=== PATIENT | male | born 1955 | race Caucasian/White ===

== ENCOUNTER 2023-07-30 08:51 | Outpatient (REF) | payer MEDICARE, MEDICAID, SELFPAY ==
[2023-07-30 14:20] LABS: MANUAL DIFF FLAG NO
[2023-07-30 14:32] LABS: Basophils Absolute Auto 0.1 X10*3/uL (0.0-0.2); Basophils Percent Auto 0.4 % (0-2); Eosinophils Absolute Auto 0.6 X10*3/uL (0.0-0.4); Eosinophils Percent Auto 5.1 % (0-4); Hematocrit 47.5 % (42.0-52.0); Hemoglobin 15.3 g/dl (14.0-18.0); Imm Gran Abs Auto 0.03 X10*3/uL (0.00-0.03); Imm Gran Pct Auto 0.3 % (0.0-0.4); Lymphocytes Percent Auto 25.3 % (20-40); Mean Corpuscular HGB Conc 32.2 g/dl (31.0-36.0); Mean Corpuscular Hemoglobin 29.3 pg (27.0-33.0); Mean Corpuscular Volume 90.8 fL (80.0-98.0); Mean Platelet Volume 11.5 fL (9.4-12.4); Monocytes Absolute Auto 0.9 X10*3/uL (0.1-1.2); Monocytes Percent Auto 7.6 % (2-11); Neutrophils Absolute Auto 7.2 x10*3/uL (2.0-8.3); Neutrophils Percent Auto 61.3 % (45-73); Platelet Count 294 X10*3/uL (160-400); Red Blood Count 5.23 X10*6/uL (4.60-5.80); Red Cell Distribution Width 12.5 % (11.0-16.0); White Blood Count 11.7 X10*3/uL (4.8-10.8)
[2023-07-30 14:36] LABS: Appearance Urine Clear; Color Urine Yellow; Glucose Urine UA Negative (Negative); Leukocyte Esterase Urine Negative (Negative); Nitrite Urine Negative (Negative); Urine Blood Negative (Negative); Urine Ketones Negative (Negative); Urine Protein Negative (Neg-Trace)
[2023-07-30 14:39] LABS: Bacteria Urine None Seen (None Seen); Hyaline Casts Urine 0-2 /LPF (0-2); RBC Urine 0-2 /HPF (0-2); Squamous Epithelial Cell Urine 0-2 /HPF (0-2); WBC Urine 0-5 /HPF (0-5)
[2023-07-30 15:24] LABS: Alanine Aminotransferase 14 U/L (0-40); Albumin Level 3.9 g/dL (3.5-5.0); Alkaline Phosphatase 81 U/L (39-117); Anion Gap 13 (12-20); Aspartate Amino Transferase 20 U/L (5-37); Bilirubin Direct 0.2 mg/dL (0.0-0.5); Bilirubin Total 0.7 mg/dL (0.0-1.0); Blood Urea Nitrogen 15 mg/dL (9-16); Calcium 9.6 mg/dL (8.4-10.2); Carbon Dioxide 28 mmol/L (22-29); Chloride 103 mmol/L (96-108); Estimated Glomerular Filt Rate > 60; Glucose Random 99 mg/dL (60-115); Potassium 4.2 mmol/L (3.3-5.1); Sodium 140 mmol/L (135-145); TSH reflex Free T4 3.14 uIU/mL (0.32-4.0)
== END 2023-07-30 08:52 | disposition home or self-care (01) ==
LOC: HO.CHCLDS 08:51
PROVIDERS: Visit Provider Pediatrics
DX: E11.9 Type 2 diabetes mellitus without complications (principal)
CPT/HCPCS: 36415; 80048; 80076; 81001; 82550; 84443; 85025

== ENCOUNTER 2024-03-28 09:14 | Outpatient (REF) | payer MEDICARE, MEDICAID, SELFPAY ==
[2024-03-28 15:00] LABS: Cholesterol 133 mg/dL (<200); HDL Cholesterol 56 mg/dL (>40); LDL Cholesterol Calculated 61 mg/dL (<100); Triglycerides 84 mg/dL (<150)
== END 2024-03-28 09:15 | disposition home or self-care (01) ==
LOC: HO.CHCLDS 09:14
PROVIDERS: Visit Provider Pediatrics
DX: E11.9 Type 2 diabetes mellitus without complications (principal)
CPT/HCPCS: 36415; 80061

== ENCOUNTER 2024-09-28 10:12 | Outpatient (REF) | payer MEDICARE, MEDICAID, SELFPAY ==
--- OUTSIDE RECORDS SUMMARY | 2024-09-28 12:10 | XMS_ITS | Encounter Summary ---
Author Organization [employer] Address [address] [place] [address] [address] [place] [address] Care Team Providers Care Angledozer Operator Name Role Phone Sigrid Avilez MD Primary Care Provider [phone] Encounter Details Date Type Department Care Team (Late st Contact Info) Description 01/13/2023 Orders Only [facility] [address] [place], [place] [id number] Esha Gilman LPN Social History Tobacco Use Types Packs/Day Years Used Date Smoking Tobacco: Never Smokeless Tobacco: Never Depression Answer Date Recorded Patient Health Questionnaire-9 Score 0 10/15/2022 Depression Answer Date Recorded Patient Health Questionnaire-2 Score 0 10/15/2022 Sex and Gender Information Value Date Recorded Sex Assigned at Male 06/30/2022 10:14 AM EDT Legal Sex Male 10:14 AM EDT Gender Identity Male 06/30/2022 10:14 AM EDT Sexual Orientation Straight 06/30/2022 10 :14 AM EDT documented as of this encounter Plan of Treatment Not on file documented as of this encounter Visit Diagnoses Not on filedocumented in this encounter Additional Health Concerns Assessment Noted Time PHQ-9 Depression Total Score: 0 10/15/19 23 9:23 AM EST documented as of this encounter Care Teams Angledozer Operator Relationship Specialty Start Date End Date Sigrid Avilez MD [address] [place] [address] PCP - General Family Medicine 08/31/18 documented as of this encounter
--- OUTSIDE RECORDS SUMMARY | 2024-09-28 12:10 | XMS_ITS | Encounter Summary ---
Author Organization [employer] Address [address] [place] [address] [address] [place] [address] Care Team Providers Care Tool And Die Machinist Name Role Phone Sigrid Avilez MD Primary Care Provider Reason for Visit * Reason Comments Med Change Request Encounter Details Date Type Department Care Team ([facility] st Contact Info) Description 11/18/2022 Refill [facility] [address] [place], [place] [phone] Sigrid Avilez MD [address] [place] [address] Type 2 diabetes mellitus without complication, without long-term current use of insulin ([facility]) Social History Tobacco Use Types Packs/Day Years [...] Orientation Straight 06/30/2022 10 :14 AM EDT COVID-19 Exposure Response Date Recorded In the last 10 days, have yo u been in contact with someone who was confirmed or suspected to have Coronavirus/COVID-19? No / Unsure 11/12/2022 8:36 AM EDT documented as of this encounter Plan of Treatment Not on file documented as of this encounter Visit Diagnoses Diagnosis Type 2 diabetes mellitus without complication, without long-term current use of insulin ([facility]) documented in this encounter Additional Health Concerns Assessment Noted Time PHQ-9 Depression Total Score: 0 10/15/19 23 9:23 AM EST documented as of this encounter Care Teams Tool And Die Machinist Relationship Specialty Start Date End Date Sigrid Avilez MD [address] [place] [address] PCP - General Family Medicine 08/31/18 documented as of this encounter
--- OUTSIDE RECORDS SUMMARY | 2024-09-28 12:11 | XMS_ITS | Encounter Summary ---
Author Organization [employer] Address [address] [place] [address] Care Team Providers Care Lawn Sprinkler Servicer Name Role Phone Sigrid Avilez MD Primary Care Provider [phone] Encounter Details Date Type Department Care Team (Late st Contact Info) Description 03/25/2024 Orders Only [facility] [address] [place], [place] [phone] Provider, MD Ernst Social History Tobacco Use Types Packs/Day Years Used Date Smoking Tobacco: Former Cigarettes Passive Smoke Exposure: Past Smokeless Tobacco: Never Depression Answer Date Recorded Patient Health Questionnaire-9 Score 1 10/27/2023 Patient Health Questionnaire-9 Score 1 10/27/2023 Last PHQ-9: Questionnaire Data Not on file 0 10/27/2023 Housing Stability Answer Date Recorded What is your housing situation today? I have tatyana pham 07/09/[address] you li ve. Do you have problems with any of the following? None of the above 07/09/2023 Food Insecurity Answer Date Recorded Within the past 12 months, y ou worried that your food would run out before you got money to buy more: Never True 07/09/2023 Within the past 12 months,th e food you bought just didn't last and you didn't have enough money to get more: Never True 05/2023 Transportation Answer Date Recorded In the past 12 months, has l ack of transportation kept you from medical appts, meetings, work or from getting things needed for daily living? No 07/09/2023 Utilities Answer Date Recorded In the past 12 months, has t he electric, gas, oil or water company threatened to shut off services in your home? No 07/09/2023 Depression Answer Date Recorded Patient Health Questionnaire-2 Score 1 10/27/2023 Sex and Gender Information Value Date Recorded Sex Assigned at Male 06/30/2022 10:14 AM EDT Legal Sex Male 10:14 AM EDT Gender Identity Male 06/30/2022 10:14 AM EDT Sexual Orientation Straight 06/30/2022 10 :14 AM EDT documented as of this encounter Plan of Treatment Not on file documented as of this encounter Procedures Procedure Name Priority Date/Time Associated Diagnosis Comments CT CHEST WO CONTRAST Routine 11/02/2023 10:10 AM EST documented in this encounter Results * CT Chest w/o Contrast (11/02/2023 10:10 AM EST) Anatomical Region Laterality Modality Body, Chest Computed Tomogra phy us Historical Provider MD GONZALEZ CT PROCEDURES Final R esult documented in this encounter Visit Diagnoses Not on filedocumented in this encounter Additional Health Concerns Assessment Noted Time PHQ-9 Depression Total Score: 1 10/27/19 24 11:18 AM EST documented as of this encounter Care Teams Lawn Sprinkler Servicer Relationship Specialty Start Date End Date Sigrid Avilez MD [address] [place] [id number] PCP - General Family Medicine 08/31/18 documented as of this encounter
--- OUTSIDE RECORDS SUMMARY | 2024-09-28 12:11 | XMS_ITS | Clinical Summary ---
Author Organization [employer] Address [address] [place] [address] 7[address] [place] [address] Care Team Providers Care Supervisor Dehydrogenation Name Role Phone Sigrid Avilez MD Primary Care Provider [phone] Allergies Active Allergy Reactions Criticality Noted Date Comments Aspirin Unknown,Rash Low 04/16/2012 Simvastatin Diarrhea 06/23/2024 Medications Cyanocobalamin 1000 MCG capsule Take 1 capsule by mouth in the morning. 11/21/19 21 Active ergocalciferol (Vitamin D-2) 1.25 MG (71324 UT) capsule Take 1 capsule by mouth 1 (one) time per week. 11/28/19 22 Active fluticasone (Flonase) 50 MCG/ACT nasal spray Administer 1 spray into each nostril 1 (one) time each day. 11/28/19 22 Active pantoprazole (ProtoNix) 20 MG EC tabletIndicatio ns:Newly diagnosed diabetes (CMS/HCC) Take 1 tab orally daily 90 tablet 3 09/04/19 23 Active omega-3 (Fish Oil) 1000 MG capsuleIndicati ons:Newly diagnosed diabetes (CMS/HCC) Take 1 capsule orally bid 180 capsule 3 09/04/19 23 Active albuterol (Proventil HFA) 108 (90 Base) MCG/ACT inhalerIndicati ons:Cough present for greater than 3 weeks Inhale 2 puffs every 4 (four) hours. 18 g 1 10/01/19 23 Active cetirizine (ZyrTEC) 10 MG tablet TOME LANDON TABLETA TODOS LOS GUZMAN 90 tablet 3 01/02/20 23 Active acetaminophen (Tylenol) 500 MG tablet Take 2 tablets by mouth if needed each day. OTC Active Lancets (OneTouch Delica Plus [id number]) misc Check sugars twice a day 100 each 01/21/20 23 Active triamcinolone (Kenalog) 0.1 % creamIndication s:Rash Apply topically if needed in the morning and at bedtime (pain and swelling). 30 g 01/31/20 23 Active Lancets (OneTouch Delica Plus [id number]) misc CHECK BLOOD SUGAR TWO TIMES A DAY 100 each 03/17/20 23 Active albuterol 108 (90 Base) MCG/ACT inhalerIndicati ons:Chronic cough INHALE 2 PUFFS EVERY 6 HOURS IF NEEDED FOR WHEEZING. 18 g 2 09/15/19 24 Active rosuvastatin (Crestor) 40 MG tabletIndicatio ns:Newly diagnosed diabetes ([facility]/HCC) TOME LANDON TABLETA POR VIA ORAL AL ACOSTARSE 90 tablet 3 11/19/19 24 Active dulaglutide (Trulicity) 0.75 MG/0.5ML solution pen-injector INJECT POR VIA SUBCUTANEA 0.75 MG UNDER THE SKIN 1 TIME PER WEEK. 0.5 mL 01/06/20 24 Active Lancets (OneTouch Delica Plus [id number]) miscIndications :Diabetes mellitus without complication ([facility]/HCC) USE TO CHECK BLOOD SUGAR ONCE DAILY 100 each 11 01/29/20 24 Active amLODIPine (Norvasc) 10 MG tablet TOME LANDON TABLETA TODOS LOS GUZMAN 90 tablet 3 03/22/20 24 Active OneTouch Ultra Test test stripIndication s:Diabetes mellitus without complication ([facility]/HCC) USE TO CHECK BLOOD SUGAR TWO TIMES A DAY 100 strip 11 04/04/20 24 Active losartan (Cozaar) 25 MG tablet Take 1 tablet (25 mg) by mouth Once per day. 90 tablet 3 09/28/19 25 Active albuterol (Ventolin HFA) 108 (90 Base) MCG/ACT inhaler Inhale 2 puffs every 6 (six) hours if needed for wheezing. 18 g 11 09/28/19 25 026 Active fluticasone-jewels meterol (AirDuo RespiClick) 232-14 MCG/ACT inhalerIndicati ons:Tobacco dependence syndrome,Chroni c cough Inhale 1 puff 2 times daily. Rinse mouth with water after use to reduce aftertaste and incidence of candidiasis. Do not swallow. 1 each 09/28/19 25 026 Active metFORMIN (Glucophage) 1000 MG tabletIndicatio ns:Newly diagnosed diabetes (CMS/HCC) Take 1 tab orally every 12 hours 180 tablet 3 09/04/19 23 025 Discontinued(S danny effects) fluticasone-jewels meterol (AirDuo RespiClick) 232-14 MCG/ACT inhalerIndicati ons:Tobacco dependence syndrome,Chroni c cough Inhale 1 puff 2 times daily. Rinse mouth with water after use to reduce aftertaste and incidence of candidiasis. Do not swallow. 1 each 10/24/19 025 Discontinued(R eorder (will not trigger notification to Pharmacy)) diphenhydrAMINE (BENADryl) 25 MG tabletIndicatio ns:Rash Take 1 tablet (25 mg) by mouth every 6 (six) hours if needed for itching. 30 tablet 01/31/20 23 025 Discontinued(T herapy completed) tiZANidine (Zanaflex) 2 MG tablet Take 1 tablet (2 mg) by mouth at bedtime for 10 days. 10 tablet 10/27/19 24 025 Discontinued(T herapy completed) losartan (Cozaar) 25 MG tablet TOME LANDON TABLETA TODOS LOS GUZMAN EN LA MANANA 90 tablet 3 04/21/20 24 025 Discontinued(R eorder (will not trigger notification to Pharmacy)) Active Problems Problem Noted Date Diagnosed Date Rash 01/30/2023 Assessment & Plan (01/30/2023 11:11 AM EDT): I will prescribe for patient benadryl 25mg q 6hrs as needed and traimcinolone cream BID for no more than 2 weeks Type 2 diabetes mellitus wit h hyperglycemia, without long-term current use of insulin 01/30/2023 Assessment & Plan (01/30/2023 11:10 AM EDT): Extensive counseling done chandana was discontinue I will start him on jardiance 10mg daily Continue with metformin Log glucose and f/u with PCP in 4 weeks ILD (interstitial lung disease) 01/22/2023 Arthritis of hip 02/02/2018 Idiopathic osteoarthritis 02/02/2018 Chronic superficial gastritis 12/22/2017 Peripheral vascular disease 09/23/2016 Elevated fasting blood sugar 06/13/2014 Asthma 04/16/2012 Depressive disorder 04/16/2012 Gastroesophageal reflux disease 04/16/2012 Hyperlipidemia 04/16/2012 Tobacco dependence syndrome 04/16/2012 Resolved Problems Problem Noted Date Diagnosed Date Resolved Date Diabetes mellitus without complication 10/11/2019 06/23/2024 Newly diagnosed diabetes 11/27/2016 Encounters Date Type Department Care Team Description 09/28/2024 9:30 AM EST Office Visit [facility] [address] [place] [address] Sigrid Avilez MD Encounter for immunization (Primary Dx); Diabetes mellitus without complication ([facility]CC); Prostate cancer screening; Tobacco dependence syndrome; Chronic cough 09/28/2024 Travel 09/09/[address] [facility] [address] [place] [address] Sigrid Avilez MD Prior Authorization (Trulicity ) 09/09/[address] [facility] [address] [place] [address] Sigrid Avilez MD Medication Question 09/08/[address] [facility] [address] [place] [address] Sigrid Avilez MD Med Refill from Last 3 Months Immunizations Name Administration Dates Next Due Influenza High-dose Quadriva lent Preservative Free 07/09/2023 Influenza Injectable Quadriv alant Preservative Free IIV4 MDCK 07/22/2021 Influenza injectable quadriv alent IIV4 with preservative 07/12/2019,06/02/2018,06/25/2017,06/25 Influenza injectable quadriv alent preservative free 07/22/2021,05/23/2020,09/20/2015 Influenza, IIV3, injectable 06/30/2014 Influenza, Split (incl. peggy fied surface antigen) 06/15/2013 Influenza, seasonal, injecta ble, preservative free 09/28/2024,08/08/2022 Moderna Covid-19 Vaccine 12+ 11/23/2020,10/26/19 21 Pfizer Covid-19 Vaccine 12+ 09/28/2024 Pneumococcal Conjugate PCV 20 03/24/2024 Pneumococcal Polysaccharide PPSV23 09/12/1996 Tdap 06/25/2016,07/13/1997 Zoster, Recombinant 09/15/2023,07/09/2023 Social History Tobacco Use Types Packs/Day Years Used Date Smoking Tobacco: Former Cigarettes Passive Smoke Exposure: Past Smokeless Tobacco: Never Tobacco Cessation:Counseling Given: Not Answered Depression Answer Date Recorded Patient Health Questionnaire-9 Score 0 09/28/2024 Patient Health Questionnaire-9 Score 0 09/28/2024 Last PHQ-9: Questionnaire Data Not on file 0 09/28/2024 Housing Stability Answer Date Recorded What is your housing situation today? I have tatyana pham 09/28/[address] you li ve. Do you have problems with any of the following? I am not sure 09/28/2024 Food Insecurity Answer Date Recorded Within the past 12 months, y ou worried that your food would run out before you got money to buy more: Never True 09/28/2024 Within the past 12 months,th e food you bought just didn't last and you didn't have enough money to get more: Never True Transportation Answer Date Recorded In the past 12 months, has l ack of transportation kept you from medical appts, meetings, work or from getting things needed for daily living? No 09/28/2024 Utilities Answer Date Recorded In the past 12 months, has t he electric, gas, oil or water company threatened to shut off services in your home? No 09/28/2024 Depression Answer Date Recorded Patient Health Questionnaire-2 Score 0 09/28/2024 Internet Access Answer Date Recorded Internet Access Q1 Yes 09/28/2024 Internet Access Q2 Not on file 09/28/2024 Sex and Gender Information Value Date Recorded Sex Assigned at Male 06/30/2022 10:14 AM EDT Legal Sex Male 10:14 AM EDT Gender Identity Male 06/30/2022 10:14 AM EDT Sexual Orientation Straight 06/30/2022 10 :14 AM EDT Last Filed Vital Signs Vital Sign Reading Time Taken Comments Blood Pressure 152/66 09/28/2024 9:17 AM EST Pulse 66 09/28/2024 9:17 AM EST Temperature 36.2 ??C (97.1 ??F) 09/28/2024 9:17 AM ES T Respiratory Rate 16 09/28/2024 9:17 AM EST Oxygen Saturation 98% 09/28/2024 9:17 AM EST Inhaled Oxygen Concentration - - Weight 60.8 kg (134 lb) 09/28/2024 9:17 AM EST Height 157.5 cm (5' 2 ) 09/28/2024 9:17 AM EST Body Mass Index 24.51 09/28/2024 9:17 AM EST Plan of Treatment Health Maintenance Due Date Last Done Comments CT Colonography 1955 Colonoscopy 1955 FIT 1955 FOBT 1955 Sigmoidoscopy 1955 Hepatitis C Screening 1973 Hepatitis A Vaccines (1 of 2 - Risk 2-dose series) 1974 RSV Patients and Patients Aged 60 years or older (1 - Risk 60-74 years 1-dose series) 2015 Diabetes: Urine Protein Screening 11/27/2022 11/27/2021, 10/11/2019 Diabetes: Foot Exam 07/16/2024 07/16/2023, 07/16/2023, 07/16/2023, Additional history exists Diabetes: Hemoglobin A1C 03/28/2025 025, 03/24/2024, 10/27/2023, Additional history exists Lipid Panel 03/28/2025 03/28/2024, 12/0 05/2022, 11/27/2021 Alcohol/Substance Use Screening 09/28/2025 09/28/2024 Depression Screening 09/28/2025 09/28/2024, 09/28/19 SDOH Screening 09/28/2025 09/28/2024 Tobacco Screening 09/28/2025 09/28/2024 Eye Exam 06/23/2026 06/23/2024, 06/01, 06/23/2024, Additional history exists DTaP/Tdap/Td Vaccines (3 - Td or Tdap) 06/25/2026 06/25/2016, 07/13/1997 Colorectal Cancer Screening 08/14/2026 FIT DNA/Cologuard 08/14/2026 08/14/2023 Zoster Vaccines Completed 09/15/2023, 07/09/2023 Pneumococcal Vaccine: 50+ Years Completed 03/24/2024, 09/12/1996 COVID-19 Vaccine Completed 09/28/2024, , 11/23/2020, Additional history exists Influenza Vaccine Completed 09/28/2024, , 08/08/2022, Additional history exists HIB Vaccines Aged Out No longer eligi ble based on patient's age to complete this topic HPV Vaccines Aged Out No longer eligi ble based on patient's age to complete this topic Hepatitis B Vaccines Aged Out No long er eligible based on patient's age to complete this topic IPV Vaccines Aged Out No longer eligi ble based on patient's age to complete this topic Meningococcal Vaccine Aged Out No pamela katiana eligible based on patient's age to complete this topic RSV under 20 months Aged Out No longe r eligible based on patient's age to complete this topic Rotavirus Vaccines Aged Out No longer eligible based on patient's age to complete this topic Procedures Procedure Name Priority Date/Time Associated Diagnosis Comments POCT GLYCATED HEMOGLOBIN, TOTAL Routine 09/28/2024 10:02 AM EST Diabetes mellitus without complication (CMS/HCC) POCT GLUCOSE Routine 09/28/2024 10:02 AM EST Diabetes mellitus without complication (CMS/HCC) LIPID PANEL, STANDARD Routine 03/28/2024 9:15 AM EDT Diabetes mellitus without complication (CMS/HCC) LAB COLOGUARD?? COLON CANCER SCREEN Routine 08/14/2023 9:00 AM EST Colon cancer screening ALBUMIN, RANDOM URINE W/CREATININE Routine 11/27/2021 11:34 AM EDT from Last 3 Months or Most Recently Relevant to Health Maintenance Results * (ABNORMAL) POCT HGB A1C (09/28/2024 10:02 AM EST) Hemoglobin A1C 6.7(A) 4.0 - 6.0 % QC Media Lot # [id number] Lot# Expiration Date 8 Blood 09/28/2024 10:0 2 AM EST us Sigrid Avilez MD POINT OF CARE TEST ENTER/EDIT ORDERABLES Final Result * POCT Glucose (09/28/2024 10:02 AM EST) Glucose Blood, POC 92 60 - 200 mg/dL QC Media Lot # [id number] Lot# Expiration Date 4825 Blood Capillary blood specimen / Unknown 09/28/2024 10:02 AM EST Sigrid Avilez MD POINT OF CARE TEST ENTER/EDIT ORDERABLES Final Result * Lipid Panel, Standard (03/28/2024 9:15 AM EDT) Triglycerides 84 <150 mg/dL [facility] Comment:Desirable Triglyceri de: less than 150 mg/dLBorderline High Triglyceride 150-199 mg/dLHigh Triglyceride: 200-499 mg/dLVery High Triglyceride: greater than or equal to 5OO mg/dL Cholesterol 133 <200 mg/dL [facility] Comment:Desirable Cholestero l: less than 200 mg/dLBorderline High Cholesterol: 200-239 mg/dLHigh Cholesterol: greater than 239 mg/dL LDL Cholesterol Calculated 61 <100 mg/dL [facility] Comment:Desirable LDL: less than 100 mg/dLNear Optimal/Above Optimal LDL: 110- 129 mg/dLBorderline High LDL: 130-159 mg/dLHigh LDL: 160-189 mg/dLVery High LDL: greater than or equal to 190 mg/dL HDL Cholesterol 56 >40 mg/dL [facility] Comment:Desirable HDL: great er than 40 mg/dL Note: This HDL assay may give artificially low results in patients with liver disease. Blood Venous blood specimen / Unknown 03/28/2024 9:15 AM EDT 03/28/2024 2:13 PM EDT us Sigrid Avilez MD LAB BLOOD ORDERABLES Final Re sult [facility] [address] [place] [address] [phone] * Cologuard?? colon cancer screening (08/14/2023 9:00 AM EST) Cologuard Result Negative Negative 08/21/20 5:50 PM EST [facility] (CLIA #:[id number]) Comment: NEGATIVE TEST RESULT. A negative Cologuard result indicates a low likelihood that a colorectal cancer (CRC) or advanced adenoma (adenomatous polyps with more advanced pre-malignant features) ??is present. The chance that a person with a negative Cologuard test has a colorectal cancer is less than 1 in 1500 (negative predictive value >99.9%) or has an ??advanced adenoma is less than ??5.3% (negative predictive value 94.7%). These data are based on a prospective cross-sectional study of 10,000 individuals at average risk for colorectal cancer who were screened with both Cologuard and colonoscopy. (Bony Langley et al, N Engl J Med 2014;370(14):1286- 1297) The normal value (reference range) for this assay is negative. COLOGUARD RE-SCREENING RECOMMENDATION: Periodic colorectal cancer screening is an important part of preventive healthcare for asymptomatic individuals at average risk for colorectal cancer. ??Following a negative Cologuard result, the [place] [employer] Society and U.S. Multi-Society Task Force screening guidelines recommend a Cologuard re-screening interval of 3 years. References: [place] Guideline for Colorectal Cancer Screening: https://www.cancer.org/cancer/ziauu-glgmus-jabrcf/lcutzmwsu-mmployhij-shpzavu/ac s-rec ommendations.html.; Hernandez LICONA, Antonino MEDEROS, Jessica FosterK, Colorectal Cancer Screening: Recommendations for Physicians and Patients from the U.S. Multi-Society Task Force on Colorectal Cancer Screening , Am J Gastroenterology 2017; 112:5550-4621. TEST DESCRIPTION: Composite algorithmic analysis of stool DNA-biomarkers with hemoglobin immunoassay. ?? Quantitative values of individual biomarkers are not reportable and are not associated with individual biomarker result reference ranges. Cologuard is intended for colorectal cancer screening of adults of either sex, 45 years or older, who are at average-risk for colorectal cancer (CRC). Cologuard has been approved for use by the U.S. FDA. The performance of Cologuard was established in a cross sectional study of average-risk adults aged 50-84. Cologuard performance in patients ages 45 to 49 years was estimated by sub-group analysis of near-age groups. Colonoscopies performed for a positive result may find as the most clinically significant lesion: colorectal cancer [4.0%], advanced adenoma (including sessile serrated polyps greater than or equal to 1cm diameter) [20%] or non- advanced adenoma [31%]; or no colorectal neoplasia [45%]. These estimates are derived from a prospective cross-sectional screening study of 10,000 individuals at average risk for colorectal cancer who were screened with both Cologuard and colonoscopy. (Bony Langley et al, N Engl J Med 2014;370(14):5019-1227.) Cologuard may produce a false negative or false positive result (no colorectal cancer or precancerous polyp present at colonoscopy follow up). A negative Cologuard test result does not guarantee the absence of CRC or advanced adenoma (pre-cancer). The current Cologuard screening interval is every 3 years. ([place] [employer] and U.S. Multi-Society Task Force). Cologuard performance data in a 10,000 patient pivotal study using colonoscopy as the reference method can be accessed at the following location: www.[facility] [employer].Arkmicro/results. Additional description of the Cologuard test process, warnings and precautions can be found at www.[employer].rd.com. Stool specimen (specimen) 08/14/2023 9:00 AM EST 08/17/2023 1:58 PM EST us Sigrid Avilez MD LAB MOLECULAR DIAGNOSTICS ORD ERABLES Final Result [facility] (CLIA #:[id number]) [address] [place] [address], * ALBUMIN, RANDOM URINE W/CREATININE (11/27/2021 11:34 AM EDT) Microalbumin Urine 4.1 See Note: mg/dL [facility] Comment: Reference Range: ?? Reference Range Not established Microalb/Creat Ratio 19 <30 mcg/mg creat [facility] Comment: ?? The ADA defines abnormalities in albumin excretion as follows: ?? Albuminuria Category ?Result (mcg/mg creatinine) ?? Normal to Mildly increased ?? <30 Moderately increased ? 30-299 ?? Severely increased ? > OR = 300 ?? The ADA recommends that at least two of three specimens collected within a 3-6 month period be abnormal before considering a patient to be within a diagnostic category. Creatinine, Urine 217 20 - 320 mg/dL [facility] 11/27/2021 11:3 4 AM EDT us Sigrid Avilez MD LAB URINE ORDERABLES Final Re sult [facility] [address] from Last 3 Months or Most Recently Relevant to Health Maintenance Insurance MEDICARE [facility] [place] [address] [place] [address] Care Teams Supervisor Dehydrogenation Relationship Specialty Start Date End Date Sigrid Avilez MD [address] [place] [address] [place] [address] PCP - General Family Medicine 08/31/18
--- OUTSIDE RECORDS SUMMARY | 2024-09-28 12:11 | XMS_ITS | Encounter Summary ---
Author Organization [employer] Address [address] [facility] [address] [place] [address] Care Team Providers Care Night Assistant Name Role Phone Sigrid Avilez MD Primary Care Provider [phone] Reason for Visit * Reason Onset Date Comments Med Refill 09/08/2024 Encounter Details Date Type Department Care Team ([facility] st Contact Info) Description 09/08/2024 Telephone [facility] [address] [place], [place] [id number] Sigrid Avilez MD [address] [place] [address] Med Refill Social History Tobacco Use Types Packs/Day Years [...] AM EDT documented as of this encounter Miscellaneous Notes * Telephone Encounter - Edmond Harris RN - 09/09/2024 4:33 PM EST Pt informed that trulicity PA was approved. * Telephone Encounter - Halle Osorio LPN - 09/09/2024 3:50 PM EST Pa was approved will be scanned into media. * Telephone Encounter - Tea Frye - 09/08/2024 3:53 PM EST Tc from pt requesting a callback in regards status on PA for trulicity [phone] * Telephone Encounter - Sumit Patel - 09/08/2024 9:59 AM EST Patient went to pharmacy to request Trulicity 0.75 /0.5 ML Pen and was notified that Ins doesn't cover the med and needs to be approved in order for pt to receive the Trulicity. Patient notified he has not taken the med for a wk now. documented in this encounter Plan of Treatment Not on file documented as of this encounter Visit Diagnoses Not on filedocumented in this encounter Additional Health Concerns Assessment Noted Time PHQ-9 Depression Total Score: 1 10/27/19 24 11:18 AM EST documented as of this encounter Care Teams Night Assistant Relationship Specialty Start Date End Date Sigrid Avilez MD [address] [place] [address] PCP - General Family Medicine 08/31/18 documented as of this encounter
--- OUTSIDE RECORDS SUMMARY | 2024-09-28 12:11 | XMS_ITS | Encounter Summary ---
Author Organization [employer] Address [address] [place] [address] [address] [place] [address] Care Team Providers Care Superintendent Police Name Role Phone Sigrid Avilez MD Primary Care Provider [phone] Reason for Visit * Reason Comments Med Refill Encounter Details Date Type Department Care Team ([facility] st Contact Info) Description 03/02/2023 Refill [facility] [address] [place] [address] Sigrid Avilez MD [address] [place] [address] Social History Tobacco Use Types Packs/Day Years [...] documented as of this encounter Care Teams Superintendent Police Relationship Specialty Start Date End Date Sigrid Avilez MD [address] [place] [address] PCP - General Family Medicine 08/31/18 documented as of this encounter
--- OUTSIDE RECORDS SUMMARY | 2024-09-28 12:11 | XMS_ITS | Encounter Summary ---
Author Organization [employer] Address [address] [facility] [address] [place] [address] Care Team Providers Care Rubber Block Layer Name Role Phone Sigrid Avilez MD Primary Care Provider [phone] Encounter Details Date Type Department Care Team (Late st Contact Info) Description 11/20/2022 Telephone [facility] [address] [place] [address] Sigrid Avilez MD [address] [facility] [place] [address] Social History Tobacco Use Types Packs/Day Years [...] Time PHQ-9 Depression Total Score: 0 10/15/19 9:23 AM EST documented as of this encounter Care Teams Rubber Block Layer Relationship Specialty Start Date End Date Sigrid Avilez MD [address] [place] [address] PCP - General Family Medicine 08/31/18 documented as of this encounter
--- OUTSIDE RECORDS SUMMARY | 2024-09-28 12:11 | XMS_ITS | Encounter Summary ---
Author Organization [employer] Address [address] [place] [address] [address] [place] [address] Care Team Providers Care Mannequin Wig Maker Name Role Phone Sigrid Avilez MD Primary Care Provider [phone] Reason for Visit * Reason Comments Med Change Request Encounter Details Date Type Department Care Team ([facility] Contact Info) Description 01/20/2023 Refill [facility] [address] [place] [address] Germania Chris MD [address] [place] [address] Social History Tobacco Use Types Packs/Day Years [...] suspected to have Coronavirus/COVID-19? No / Unsure 01/22/2023 10:16 AM EDT documented as of this encounter Plan of Treatment Not on file documented as of this encounter Visit Diagnoses Not on filedocumented in this encounter Additional Health Concerns Assessment Noted Time PHQ-9 Depression Total Score: 0 10/15/19 23 9:23 AM EST documented as of this encounter Care Teams Mannequin Wig Maker Relationship Specialty Start Date End Date Sigrid Avilez MD [address] [place] [address] PCP - General Family Medicine 08/31/18 documented as of this encounter
--- OUTSIDE RECORDS SUMMARY | 2024-09-28 12:11 | XMS_ITS | Encounter Summary ---
Author Organization [employer] Address [address] [place] [address] 7t [place] [address] Care Team Providers Care Saxophone Teacher Name Role Phone Sigrid Avilez MD Primary Care Provider [phone] Reason for Visit * Reason Comments Med Change Request Encounter Details Date Type Department Care Team ([facility] st Contact Info) Description 11/18/2022 Refill [facility] CHC MED & PEDS [address] [place], [place] [phone] Sigrid Avilez MD [address] [place] [address] Type 2 diabetes mellitus without complication, without long-term current use of insulin ([facility]) Social History Tobacco Use Types Packs/Day Years [...] complication, without long-term current use of insulin ([facility]) documented in this encounter Additional Health Concerns Assessment Noted Time PHQ-9 Depression Total Score: 0 10/15/19 23 9:23 AM EST documented as of this encounter Care Teams Saxophone Teacher Relationship Specialty Start Date End Date Sigrid Avilez MD [address] [place] [address] PCP - General Family Medicine 08/31/18 documented as of this encounter
--- OUTSIDE RECORDS SUMMARY | 2024-09-28 12:11 | XMS_ITS | Encounter Summary ---
Author Organization [employer] Address [address] [facility] 7t [place] [address] Care Team Providers Care Platform Loader Name Role Phone Sigrid Avilez MD Primary Care Provider [phone] Encounter Details Date Type Department Care Team ([facility] st Contact Info) Description 09/28/2024 9:30 AM EST Office Visit [facility] CHC MED & PEDS [address] [place], [place] [phone] Sigrid Avilez MD 505 [place] [address] Encounter for immunization (Primary Dx); Diabetes mellitus without complication (CMS/HCC); Prostate cancer screening; Tobacco dependence syndrome; Chronic cough Social History Tobacco Use Types Packs/Day Years [...] AM EDT documented as of this encounter Last Filed Vital Signs Vital Sign Reading [...] Mass Index 24.51 09/28/2024 9:17 AM EST documented in this encounter Plan of Treatment Scheduled Orders Name Type Priority Associated Diagnoses Orde r Schedule Basic Metabolic Panel, Fasting Lab Routine Encounter for immunization Diabetes mellitus without complication ([facility]) Expected: 09/28/2024 (Approximate), Expires: 09/28/2025 Albumin, Random Urine W/Creatinine Lab Routine Encounter for immunization Diabetes mellitus without complication ([facility]) Expected: 09/28/2024 (Approximate), Expires: 09/28/2025 TSH W/Reflex to FT4 Lab Routine Encounter for immunization Diabetes mellitus without complication ([facility]) Expected: 09/28/2024 (Approximate), Expires: 09/28/2025 PSA, Screen Lab Routine Encounter for immunization Diabetes mellitus without complication (CMS/HCC) Prostate cancer screening Expected: 09/28/2024 (Approximate), Expires: 09/28/2025 Hepatic Function Panel Lab Routine Encounter for immunization Diabetes mellitus without complication (CMS/HCC) Expected: 09/28/2024 (Approximate), Expires: 09/28/2025 CBC auto differential Lab Routine Encounter for immunization Diabetes mellitus without complication (CMS/HCC) Expected: 09/28/2024 (Approximate), Expires: 09/28/2025 documented as of this encounter Procedures Procedure Name Priority Date/Time Associated Diagnosis Comments POCT GLYCATED HEMOGLOBIN, TOTAL Routine 09/28/2024 10:02 AM EST Diabetes mellitus without complication (CMS/HCC) POCT GLUCOSE Routine 09/28/2024 10:02 AM EST Diabetes mellitus without complication (CMS/HCC) documented in this encounter Results * (ABNORMAL) POCT HGB A1C (09/28/2024 10:02 AM EST) Hemoglobin A1C 6.7(A) 4.0 - 6.0 % QC Media Lot # [id number] Lot# Expiration Date 8,126 Blood 09/28/2024 10:0 2 AM EST us Sigrid Avilez MD POINT OF CARE TEST ENTER/EDIT ORDERABLES Final Result * POCT Glucose (09/28/2024 10:02 AM EST) Glucose Blood, POC 92 60 - 200 mg/dL QC Media Lot # [id number] Lot# Expiration Date 4,825 Blood Capillary blood specimen / Unknown 09/28/2024 10:02 AM EST us Sigrid Avilez MD POINT OF CARE TEST ENTER/EDIT ORDERABLES Final Result documented in this encounter Visit Diagnoses Diagnosis Encounter for immunization- Primary Diabetes mellitus without complication (CMS/HCC) Type II or unspecified type diabetes mellitus without mention of complication, not stated as uncontrolled Prostate cancer screening Special screening for malignant neoplasm of prostate Tobacco dependence syndrome Tobacco use disorder Chronic cough Cough documented in this encounter Additional Health Concerns Assessment Noted Time PHQ-9 Depression Total Score: 0 09/28/19 25 9:18 AM EST documented as of this encounter Care Teams Platform Loader Relationship Specialty Start Date End Date Sigrid Avilez MD [address] [place] [address] PCP - General Family Medicine 08/31/18 documented as of this encounter
--- OUTSIDE RECORDS SUMMARY | 2024-09-28 12:11 | XMS_ITS | Encounter Summary ---
Author Organization [employer] Address [address] 7t [place] [address] Care Team Providers Care Cloth Shearer Name Role Phone Sigrid Avilez MD Primary Care Provider [phone] Encounter Details Date Type Department Care Team (Latest Contact Info) Description 09/28/2024 Travel Social History Tobacco Use Types Packs/Day Years [...] documented as of this encounter Care Teams Cloth Shearer Relationship Specialty Start Date End Date Sigrid Avilez MD [address] [place] [address] PCP - General Family Medicine 08/31/18 documented as of this encounter
--- OUTSIDE RECORDS SUMMARY | 2024-09-28 12:11 | XMS_ITS | Encounter Summary ---
Author Organization [employer] Address [address] [facility] 7t [place] [address] Care Team Providers Care Train Gate Attendant Name Role Phone Sigrid Avilez MD Primary Care Provider [phone] Reason for Visit * Reason Onset Date Comments Prior Authorization 09/09/2024 Trulicity Encounter Details Date Type Department Care Team ([facility] Contact Info) Description 09/09/2024 Telephone [facility] CHC MED & PEDS [address] [place], [place] [phone] Sigrid Avilez MD [address] [place] [address] Prior Authorization (Trulicity ) Social History Tobacco Use Types Packs/Day Years [...] encounter Miscellaneous Notes * Telephone Encounter - Halle Osorio LPN - 09/09/2024 1:18 PM EST Pa generated Via CMM pending documented in this encounter Plan of Treatment Not on file documented as of this encounter Visit Diagnoses Not on filedocumented in this encounter Additional Health Concerns Assessment Noted Time PHQ-9 Depression Total Score: 1 10/27/19 24 11:18 AM EST documented as of this encounter Care Teams Train Gate Attendant Relationship Specialty Start Date End Date Sigrid Avilez MD [address] [place] [address] PCP - General Family Medicine 08/31/18 documented as of this encounter
--- OUTSIDE RECORDS SUMMARY | 2024-09-28 12:11 | XMS_ITS | Encounter Summary ---
Author Organization [employer] Address [address] [place] [address] 7t [place] [address] Care Team Providers Care Caramel Cutter Hand Name Role Phone Sigrid Avilez MD Primary Care Provider [phone] Reason for Visit * Reason Comments Med Change Request Encounter Details Date Type Department Care Team ([facility] st Contact Info) Description 01/20/2023 Refill [facility] CHC MED & PEDS [address] [place], [place] [phone] Sigrid Avilez MD [address] [place] [address] Type 2 diabetes mellitus without complication, without long-term current use of insulin ([facility]) Social History Tobacco Use Types Packs/Day Years [...] complication, without long-term current use of insulin ([facility]) documented in this encounter Additional Health Concerns Assessment Noted Time PHQ-9 Depression Total Score: 0 10/15/19 23 9:23 AM EST documented as of this encounter Care Teams Caramel Cutter Hand Relationship Specialty Start Date End Date Sigrid Avilez MD [address] [place] [address] PCP - General Family Medicine 08/31/18 documented as of this encounter
--- OUTSIDE RECORDS SUMMARY | 2024-09-28 12:11 | XMS_ITS | Encounter Summary ---
Author Organization [employer] Address [address] [facility] 7t [place] [address] Care Team Providers Care Project Coach Name Role Phone Sigrid Avilez MD Primary Care Provider [phone] Reason for Visit * Reason Onset Date Comments Medication Question 09/09/2024 Encounter Details Date Type Department Care Team ([facility] st Contact Info) Description 09/09/2024 Telephone [facility] CHC MED & PEDS [address] [place], [place] [phone] Sigrid Avilez MD 505 [place] [address] Medication Question Social History Tobacco Use Types Packs/Day Years [...] encounter Miscellaneous Notes * Telephone Encounter - Charisse Edmonds RN - 09/09/2024 3:40 PM EST TC to Melina at [facility]. Informed her the diagnosis code was E11.65 Verbal repeat confirmation. * Telephone Encounter - Brigida Saravia - 09/09/2024 11:16 AM EST Tc from Melina at [facility] requesting a diagnosis code for medication dulaglutide (Trulicity) 0.75 MG/0.5ML solution pen-injector. Contact Melina at [phone] documented in this encounter Plan of Treatment Not on file documented as of this encounter Visit Diagnoses Not on filedocumented in this encounter Additional Health Concerns Assessment Noted Time PHQ-9 Depression Total Score: 1 10/27/19 24 11:18 AM EST documented as of this encounter Care Teams Project Coach Relationship Specialty Start Date End Date Sigrid Avilez MD [address] [place] [address] PCP - General Family Medicine 08/31/18 documented as of this encounter
[2024-09-28 14:48] LABS: MANUAL DIFF FLAG NO
[2024-09-28 14:58] LABS: Basophils Absolute Auto 0.1 X10*3/uL (0.0-0.2); Basophils Percent Auto 0.6 % (0-2); Eosinophils Absolute Auto 0.5 X10*3/uL (0.0-0.4); Eosinophils Percent Auto 4.5 % (0-4); Hemoglobin 14.2 g/dl (14.0-18.0); Imm Gran Abs Auto 0.04 X10*3/uL (0.00-0.03); Imm Gran Pct Auto 0.4 % (0.0-0.4); Lymphocytes Absolute Auto 2.1 X10*3/uL (1.2-4.9); Lymphocytes Percent Auto 20.2 % (20-40); Mean Corpuscular HGB Conc 32.3 g/dl (31.0-36.0); Mean Corpuscular Hemoglobin 29.5 pg (27.0-33.0); Mean Corpuscular Volume 91.5 fL (80.0-98.0); Mean Platelet Volume 11.4 fL (9.4-12.4); Monocytes Absolute Auto 0.8 X10*3/uL (0.1-1.2); Monocytes Percent Auto 7.4 % (2-11); Neutrophils Percent Auto 66.9 % (45-73); Platelet Count 256 X10*3/uL (160-400); Red Blood Count 4.81 X10*6/uL (4.60-5.80); Red Cell Distribution Width 12.7 % (11.0-16.0); White Blood Count 10.5 X10*3/uL (4.8-10.8)
[2024-09-28 15:19] LABS: Alanine Aminotransferase 18 U/L (0-40); Albumin Level 3.5 g/dL (3.5-5.0); Alkaline Phosphatase 78 U/L (39-117); Anion Gap 8 (12-20); Aspartate Amino Transferase 24 U/L (5-37); Bilirubin Direct 0.2 mg/dL (0.0-0.5); Bilirubin Total 0.5 mg/dL (0.0-1.0); Blood Urea Nitrogen 12 mg/dL (9-16); Calcium 8.4 mg/dL (8.4-10.2); Carbon Dioxide 28 mmol/L (22-29); Chloride 107 mmol/L (96-108); Estimated Glomerular Filt Rate > 60; Glucose Fasting 105 mg/dL (60-99); Potassium 3.9 mmol/L (3.3-5.1); Sodium 139 mmol/L (135-145); Total Protein 7.6 g/dL (6.5-8.0)
[2024-09-28 15:21] LABS: Creatinine Urine 177.21 mg/dL; Microalbum/Creatinine Ratio Ur 30.4 ug/mg cr (<30)
[2024-09-28 15:29] LABS: Prostate Specific Antigen Scr 1.38 ng/mL (<0.05-4.0)
[2024-09-28 15:35] LABS: TSH reflex Free T4 3.91 uIU/mL (0.32-4.0)
== END 2024-09-28 10:13 | disposition home or self-care (01) ==
LOC: HO.CHCLDS 10:12
PROVIDERS: Visit Provider Pediatrics
DX: E11.9 Type 2 diabetes mellitus without complications (principal); Z12.5 Encounter for screening for malignant neoplasm of prostate; Z23 Encounter for immunization
CPT/HCPCS: 36415; 80048; 80076; 82043; 82570; 84153; 84443; 85025

== ENCOUNTER 2024-11-07 08:34 | Outpatient (REF) | payer MEDICARE, MEDICAID, SELFPAY ==
--- NOTE | ~2024-11-07 | XR_ITS ---
EXAMINATION: XR CHEST CLINICAL INFORMATION: rule out pneumonia,hypoxia COMPARISON: June 22, 2015. TECHNIQUE: 2 views of the chest were obtained. FINDINGS: Pulmonary reticular pattern. Prominence of the interstitial markings. Linear opacities in the left lower hemithorax. No pleural effusion. No pneumothorax. Cardiomediastinal silhouette margins are indistinct. Multilevel thoracolumbar spondylosis. Vascular clips right upper quadrant abdomen and likely cholecystectomy. Abundant stool, large intestine. Gas filled mildly prominent small bowel loops. XR/XR chest 2V IMPRESSION: Consider acute on chronic airspace disease in the correct clinical settings. Recommend follow-up ultrasound to resolution. Electronically signed by: Demarcus Turner MD 11/08/2024 08:29 AM EDT
--- OUTSIDE RECORDS SUMMARY | 2024-11-07 08:55 | XMS_ITS | Encounter Summary ---
Author Organization [employer] Address [address] [place] [address] 7t [place] [address] Care Team Providers Care Eligibility Consultant Name Role Phone Sigrid Avilez MD Primary Care Provider [phone] Reason for Visit * Reason Comments Med Change Request Encounter Details Date Type Department Care Team (Late Contact Info) Description 11/18/2022 Refill C CHC MED & PEDS [address] [place], [place] [phone] Sigrid Avilez MD [address] [place] [address] Type 2 diabetes mellitus without complication, without long-term current use of insulin ([facility]) Social History Tobacco Use Types Packs/Day Years [...] as of this encounter Plan of Treatment Upcoming Encounters Date Type Department Care Team (Late Contact Info) Description 01/04/2025 9:30 AM EDT Office Visit [facility] CHC MED & PEDS [address] [place] [address] Sigrid Avilez MD [address] [place] [address] documented as of this encounter Visit Diagnoses Diagnosis Type 2 diabetes mellitus without complication, without long-term current use of insulin ([facility]) documented in this encounter Additional Health Concerns Assessment Noted Time PHQ-9 Depression Total Score: 0 10/15/19 23 9:23 AM EST documented as of this encounter Care Teams Eligibility Consultant Relationship Specialty Start Date End Date Sigrid Avilez MD [address] [place] [address] PCP - General Family Medicine 08/31/18 documented as of this encounter
--- OUTSIDE RECORDS SUMMARY | 2024-11-07 08:55 | XMS_ITS | Encounter Summary ---
Author Organization [employer] Address [address] [place] [address] 7t [place] [address] Care Team Providers Care Lacer And Tier Name Role Phone Sigrid Avilez MD Primary Care Provider [phone] Reason for Visit * Reason Comments Med Change Request Encounter Details Date Type Department Care Team (Late Contact Info) Description 11/18/2022 Refill C CHC MED & PEDS [address] [place], [place] [phone] Sigrid Avilez MD 505 [place] [address] Type 2 diabetes mellitus without complication, without long-term current use of insulin ([facility]) Social History Tobacco Use Types Packs/Day [...] Description 01/04/2025 9:30 AM EDT Office Visit [facility] CHC MED & PEDS [address] [place] [address] Sigrid Avilez MD [address] [place] [address] documented as of this encounter Visit Diagnoses Diagnosis Type 2 diabetes mellitus without complication, without long-term current use of insulin ([facility]) documented in this encounter Additional Health Concerns Assessment Noted Time PHQ-9 Depression Total Score: 0 10/15/19 23 9:23 AM EST documented as of this encounter Care Teams Lacer And Tier Relationship Specialty Start Date End Date Sigrid Avilez MD [address] [place] [address] PCP - General Family Medicine 08/31/18 documented as of this encounter
--- OUTSIDE RECORDS SUMMARY | 2024-11-07 08:55 | XMS_ITS | Encounter Summary ---
Author Organization [employer] Address [address] [place] [address] 7t [place] [address] Care Team Providers Care Grouter Helper Name Role Phone Sigrid Avilez MD Primary Care Provider [phone] Reason for Visit * Reason Comments Med Change Request Encounter Details Date Type Department Care Team ([facility] Contact Info) Description 01/20/2023 Refill [facility] CHC MED & PEDS [address] [place] [address] Germania Chris MD [address] [place] [address] Social History Tobacco Use Types Packs/Day Years [...] Upcoming Encounters Date Type Department Care Team ([facility] Contact Info) Description 01/04/2025 9:30 AM EDT Office Visit [facility] CHC MED & PEDS [address] [place] [address] Sigrid Avilez MD [address] [place] [address] documented as of this encounter Visit Diagnoses Not on filedocumented in this encounter Additional Health Concerns Assessment Noted Time PHQ-9 Depression Total Score: 0 10/15/19 23 9:23 AM EST documented as of this encounter Care Teams Grouter Helper Relationship Specialty Start Date End Date Sigrid Avilez MD [address] [place] [address] PCP - General Family Medicine 08/31/18 documented as of this encounter
--- OUTSIDE RECORDS SUMMARY | 2024-11-07 08:55 | XMS_ITS | Encounter Summary ---
Author Organization [employer] Address [address] [facility] 7t [place] [address] Care Team Providers Care Job Press Feeder Name Role Phone Sigrid Avilez MD Primary Care Provider [phone] Reason for Visit * Reason Comments Med Change Request Encounter Details Date Type Department Care Team (Late Contact Info) Description 01/20/2023 Refill C CHC MED & PEDS [address] [place], [place] [phone] Sigrid Avilez MD [address] [place] [address] Type 2 diabetes mellitus without complication, without long-term current use of insulin ([facility]) Social History Tobacco [...] Upcoming Encounters Date Type Department Care Team ([facility] Contact Info) Description 01/04/2025 9:30 AM EDT Office Visit [facility] CHC MED & PEDS [address] [place] [address] Sigrid Avilez MD [address] [place] [address] documented as of this encounter Visit Diagnoses Diagnosis Type 2 diabetes mellitus without complication, without long-term current use of insulin ([facility]) documented in this encounter Additional Health Concerns Assessment Noted Time PHQ-9 Depression Total Score: 0 10/15/19 23 9:23 AM EST documented as of this encounter Care Teams Job Press Feeder Relationship Specialty Start Date End Date Sigrid Avilez MD [address] [place] [address] PCP - General Family Medicine 08/31/18 documented as of this encounter
--- OUTSIDE RECORDS SUMMARY | 2024-11-07 08:55 | XMS_ITS | Encounter Summary ---
Author Organization [employer] Address [address] [facility] 7t [place] [address] Care Team Providers Care Band Tier Name Role Phone Sigrid Avilez MD Primary Care Provider [phone] Encounter Details Date Type Department Care Team ([facility] Contact Info) Description 11/20/2022 Telephone [facility] [address] [place], [place] [phone] Sigrid Avilez MD [address] [place], [place] [phone] Social History Tobacco Use Types Packs/Day Years [...] Upcoming Encounters Date Type Department Care Team ([facility] Contact Info) Description 01/04/2025 9:30 AM EDT Office Visit [facility] CHC MED & PEDS [address] [place], [place] [phone] Sigrid Avilez MD [address] [place] [address] documented as of this encounter Visit Diagnoses Not on filedocumented in this encounter Additional Health Concerns Assessment Noted Time PHQ-9 Depression Total Score: 0 10/15/19 23 9:23 AM EST documented as of this encounter Care Teams Band Tier Relationship Specialty Start Date End Date Sigrid Avilez MD [address] [place] [address] PCP - General Family Medicine 08/31/18 documented as of this encounter
--- OUTSIDE RECORDS SUMMARY | 2024-11-07 08:55 | XMS_ITS | Encounter Summary ---
Author Organization [employer] Address [address] [place] [address] 7t [place] [address] Care Team Providers Care Boat Joiner Helper Name Role Phone Sigrid Avilez MD Primary Care Provider [phone] Encounter Details Date Type Department Care Team ([facility] Contact Info) Description 01/13/2023 Orders Only [facility] MED & PEDS [address] [place] [address] Esha Gilman LPN Social History Tobacco Use [...] Upcoming Encounters Date Type Department Care Team ([facility] Contact Info) Description 01/04/2025 9:30 AM EDT Office Visit [facility] MED & PEDS [address] [place] [address] Sigrid Avilez MD [address] [place] [address] documented as of this encounter Visit Diagnoses Not on filedocumented in this encounter Additional Health Concerns Assessment Noted Time PHQ-9 Depression Total Score: 0 10/15/19 23 9:23 AM EST documented as of this encounter Care Teams Boat Joiner Helper Relationship Specialty Start Date End Date Sigrid Avielz MD [address] [place] [address] PCP - General Family Medicine 08/31/18 documented as of this encounter
--- OUTSIDE RECORDS SUMMARY | 2024-11-07 08:56 | XMS_ITS | Encounter Summary ---
Author Organization [employer] Address [address] [place] [address] [address] [place] [address] Care Team Providers Care Web Press Roll Tender Name Role Phone Sigrid Avilez MD Primary Care Provider [phone] Reason for Referral * Consultation (Urgent) - Authorized Specialty Diagnoses / Procedures Referred By Contac t Referred To Contact Pulmonary Disease Diagnoses Chronic cough ILD (interstitial lung disease) (CMS/HCC) Sigrid Avilez MD [address] [place] [address] Phone: tel: fax: Shabbir Lutz [address] [place] [id number] Phone: tel: fax: Referral ID Status Reason Start Date Expiration Date Visits Requested Visits Authorized [id number] Authorized Specialty Services Required 11/04/2024 11/04/2025 1 1 [place] [facility] Encounter Details Date Type Department Care Team (Late st Contact Info) Description 11/04/2024 11:15 AM EST Office Visit [facility] [address] [place], [place] [phone] Sigrid Avilez MD [address], [place] [phone] ILD (interstitial lung disease) (CMS/HCC) (Primary Dx); Chronic cough; Type 2 diabetes mellitus with hyperglycemia, without long-term current use of insulin (CMS/HCC); Hypoxia Social History Tobacco Use Types Packs/Day Years [...] Sign Reading Time Taken Comments Blood Pressure 125/64 11/04/2024 10:31 AM EST Pulse 88 11/04/2024 10:31 AM EST Temperature 36.6 ??C (97.8 ??F) 11/04/2024 1 0:31 AM EST Respiratory Rate 18 11/04/2024 10:3 1 AM EST Oxygen Saturation 96% 11/04/2024 11: 19 AM EST after treatment Inhaled Oxygen Concentration - - Weight 59 kg (130 lb) 11/04/2024 10:31 AM EST Height 157.5 cm (5' 2 ) 11/04/2024 10:3 1 AM EST Body Mass Index 23.78 11/04/2024 10:31 AM EST documented in this encounter Progress Notes * Sigrid Avilez MD - 11/04/2024 11:15 AM EST Subjective Patient ID: Benny Vásquez is a 69 y.o. male who presents for SOB x 2 weeks. Benny is a 69 y/o male patient of mine here with 2 weeks of worsening cough.Traveled to [place] , catched a cold when there. Now worse.Tested negative for covid. Has past hx of interstitial lung disease. Ex smoker.Tried albuterol inhaler only. Cough This is a recurrent problem. The current episode started 1 to 4 weeks ago. The problem has been gradually worsening. The problem occurs constantly. Associated symptoms include shortness of breath, weight loss and wheezing. Pertinent negatives include no chest pain, ear congestion, fever, heartburn,hemoptysis, myalgias, nasal congestion, rash or sore throat. The symptoms are aggravated by exercise. Risk factors for lung disease include travel. He has tried a beta- agonist inhaler, steroid inhaler and rest for the symptoms. The treatment provided mild relief. His past medical history is significant for emphysema. Review of Systems Constitutional: Positive for weight loss. Negative for fatigue and fever. HENT: Negative for sore throat. Respiratory: Positive for cough, shortness of breath and wheezing. Negative for hemoptysis. Cardiovascular: Negative for chest pain. Gastrointestinal: Negative for heartburn. Musculoskeletal: Negative for myalgias. Skin: Negative for rash. Objective BP 125/64 (BP Location: Right arm, Patient Position: Sitting, BP Cuff Size: Adult) Pulse 88 Temp 97.8 ??F (36.6 ??C) (Oral) Resp 18 Ht 5' 2 (1.575 m) Wt 130 lb (59 kg) SpO2 96%Comment: after treatment BMI 23.78 kg/m?? Physical Exam Vitals reviewed. Constitutional: Appearance: He is not ill-appearing, toxic-appearing or diaphoretic. HENT: Head: Normocephalic. Nose: No congestion. Eyes: Conjunctiva/sclera: Conjunctivae normal. Pupils: Pupils are equal, round, and reactive to light. Cardiovascular: Rate and Rhythm: Normal rate and regular rhythm. Heart sounds: No murmur heard. Pulmonary: Breath sounds: Wheezing and rales present. No rhonchi. Musculoskeletal: General: No swelling. Right lower leg: No edema. Left lower leg: No edema. Lymphadenopathy: Cervical: No cervical adenopathy. Skin: Findings: No rash. Neurological: Mental Status: He is oriented to person, place, and time. Mental status is at baseline. Psychiatric: Mood and Affect: Mood normal. Behavior: Behavior normal. Thought Content: Thought content normal. Judgment: Judgment normal. Assessment/Plan Diagnoses and all orders for this visit: ILD (interstitial lung disease) ([facility]) Comments: New pulmonary referral done today [place] [facility] [place]. Continue symbicort bid and albuterol prn.NOt smoking any longer. Orders: - ipratropium-albuterol (Duo-Neb) 0.5-2.5 mg/3 mL nebulizer solution 3 mg - predniSONE (Deltasone) tablet 50 mg - XR Chest 2 Views; Future - Referral to Pulmonology; Future - Misc. Devices (Pulse Oximeter) misc; Use to check pulse ox prn Chronic cough Comments: From acute bronchitis/pneumonia? CXR ordered STAT. Duoneb plus prednisone given in clinic.Patient improved. Started on prednisone taper plus azithro and levaquin.Call patient with results.Agrees to go to ER if feels worse over the weekend despite being on abxs etc.. Orders: - POCT Rapid COVID Ag - ipratropium-albuterol (Duo-Neb) 0.5-2.5 mg/3 mL nebulizer solution 3 mg - predniSONE (Deltasone) tablet 50 mg - XR Chest 2 Views; Future - Referral to Pulmonology; Future Type 2 diabetes mellitus with hyperglycemia, without long-term current use of insulin ([facility]) - POCT glucose manually resulted Hypoxia Comments: Improved from 90 to 96 % on room air after 1 duoneb tx and prednisone dose. 1 pulse oximeter kit prescribed for home use. F/U with me given. Orders: - XR Chest 2 Views; Future Other orders - predniSONE (Deltasone) 20 MG tablet; Take 2 tabs orally daily for 4 days, then 1 tab daily for 6 days - azithromycin (Zithromax) 250 MG tablet; Take 2 tabs orally on day 1 then 1 tab orally daily for 4more days - levoFLOXacin (Levaquin) 750 MG tablet; Take 1 tab orally daily documented in this encounter Plan of Treatment Upcoming Encounters Date Type Department Care Team (Late st Contact Info) Description 01/04/2025 9:30 AM EDT Office Visit [facility] [address] [place] [address] Sigrid Avilez MD [address], [place] [phone] Scheduled Orders Name Type Priority Associated Diagnoses Orde r Schedule POCT Rapid COVID Ag Point of Care Testing Routine Chronic cough Ordered: 11/04/2024 XR Chest 2 Views Imaging Routine Chronic cough ILD (interstitial lung disease) ([facility]) Hypoxia Expected: 11/04/2024, Expires: 11/04/2025 Scheduled Referrals Name Type Priority Associated Diagnoses Order Schedule Referral to Pulmonology Outpatient Referral Urgent Chronic cough ILD (interstitial lung disease) ([facility]) Expected: 11/04/2024 (Approximate), Expires: 11/04/2025 documented as of this encounter Procedures Procedure Name Priority Date/Time Associated Diagnosis Comments POCT GLUCOSE Routine 11/04/2024 10:32 AM EST Type 2 diabetes mellitus with hyperglycemia, without long-term current use of insulin ([facility]) documented in this encounter Results * (ABNORMAL) POCT glucose manually resulted (11/04/2024 10:32 AM EST) Glucose Blood, POC 186 60 - 200 mg/dL QC Media Lot # Comment:[id number] Lot# Expiration Date Comment:03/02/2025 Blood Capillary blood specimen / Unknown 11/04/2024 10:32 AM EST us Sigrid Avilez MD POINT OF CARE TEST ENTER/EDIT ORDERABLES Final Result documented in this encounter Visit Diagnoses Diagnosis ILD (interstitial lung disease) ([facility])- Primary Postinflammatory pulmonary fibrosis Chronic cough Cough Type 2 diabetes mellitus with hyperglycemia, without long-term current use of insulin ([facility]) Hypoxia Hypoxemia documented in this encounter Administered Medications Inactive Administered Medications - up to 3 most recent administrations Medication Order MAR Action Action Date Dose Rate Site ipratropium-albuterol (Duo-Neb) 0.5-2.5 mg/3 mL nebulizer solution 3 mg 3 mg, Nebulization, Once, On Thu11/04/24 at 1100, For 1 doseIndications:Chronic cough,ILD (interstitial lung disease) ([facility]) Given 11/04/2024 11:00 AM EST 3 mg predniSONE (Deltasone) tablet 50 mg 50 mg, Oral, Once, On Thu11/04/24 at 1100, For 1 doseIndications:Chronic cough,ILD (interstitial lung disease) ([facility]) Given 11/04/2024 11:00 AM EST 50 mg documented in this encounter Additional Health Concerns Assessment Noted Time PHQ-9 Depression Total Score: 0 09/28/19 25 9:18 AM EST documented as of this encounter Care Teams Web Press Roll Tender Relationship Specialty Start Date End Date Sigrid Avilez MD [address] [place] [id number] PCP - General Family Medicine 08/31/18 documented as of this encounter
--- OUTSIDE RECORDS SUMMARY | 2024-11-07 08:56 | XMS_ITS | Clinical Summary ---
Author Organization [employer] Address [address] [place] [address] 7[address] [place] [address] Care Team Providers Care Editor Publications Name Role Phone Sigrid Avilez MD Primary Care Provider [phone] Allergies Active Allergy Reactions Criticality Noted Date Comments Aspirin Unknown,Rash Low 04/16/2012 Simvastatin Diarrhea 06/23/2024 Medications Cyanocobalamin 1000 MCG capsule Take 1 capsule by mouth in the morning. 1 Active ergocalciferol (Vitamin D-2) 1.25 MG (49572 UT) capsule Take 1 capsule by mouth 1 (one) time per week. 2 Active fluticasone (Flonase) 50 MCG/ACT nasal spray Administer 1 spray into each nostril 1 (one) time each day. 2 Active pantoprazole (ProtoNix) 20 MG EC tabletIndications :Newly diagnosed diabetes (CMS/HCC) Take 1 tab orally daily 90 tablet 3 3 Active omega-3 (Fish Oil) 1000 MG capsuleIndication s:Newly diagnosed diabetes (CMS/HCC) Take 1 capsule orally bid 180 capsule 3 3 Active albuterol (Proventil HFA) 108 (90 Base) MCG/ACT inhalerIndication s:Cough present for greater than 3 weeks Inhale 2 puffs every 4 (four) hours. 18 g 1 3 Active cetirizine (ZyrTEC) 10 MG tablet TOME LANDON TABLETA TODOS [place] UGZMAN 90 tablet 3 3 Active acetaminophen (Tylenol) 500 MG tablet Take 2 tablets by mouth if needed each day. OTC Active Lancets (OneTouch Delica Plus [id number]) misc Check sugars twice a day 100 each 11 3 Active triamcinolone (Kenalog) 0.1 % creamIndications: Rash Apply topically if needed in the morning and at bedtime (pain and swelling). 30 g 3 Active Lancets (OneTouch Delica Plus [id number]) misc CHECK BLOOD SUGAR TWO TIMES A DAY 100 each 11 3 Active albuterol 108 (90 Base) MCG/ACT inhalerIndication s:Chronic cough INHALE 2 PUFFS EVERY 6 HOURS IF NEEDED FOR WHEEZING. 18 g 2 4 Active rosuvastatin (Crestor) 40 MG tabletIndications :Newly diagnosed diabetes ([facility]/HCC) TOME LANDON TABLETA POR VIA ORAL AL ACOSTARSE 90 tablet 3 4 Active dulaglutide (Trulicity) 0.75 MG/0.5ML solution pen-injector INJECT POR VIA SUBCUTANEA 0.75 MG UNDER THE SKIN 1 TIME PER WEEK. 0.5 mL 11 4 Active Lancets (OneTouch Delica Plus [id number]) miscIndications:D iabetes mellitus without complication ([facility]/HCC) USE TO CHECK BLOOD SUGAR ONCE DAILY 100 each 11 4 Active amLODIPine (Norvasc) 10 MG tablet TOME LANDON TABLETA TODOS [place] GUZMAN 90 tablet 3 4 Active OneTouch Ultra Test test stripIndications: Diabetes mellitus without complication ([facility]/HCC) USE TO CHECK BLOOD SUGAR TWO TIMES A DAY 100 strip 11 4 Active losartan (Cozaar) 25 MG tablet Take 1 tablet (25 mg) by mouth Once per day. 90 tablet 3 5 Active albuterol (Ventolin HFA) 108 (90 Base) MCG/ACT inhaler Inhale 2 puffs every 6 (six) hours if needed for wheezing. 18 g 11 5 09/28/19 26 Active fluticasone-salme terol (AirDuo RespiClick) 232-14 MCG/ACT inhalerIndication s:Tobacco dependence syndrome Inhale 1 puff 2 times daily. Rinse mouth with water after use to reduce aftertaste and incidence of candidiasis. Do not swallow. 1 each 11 5 09/28/19 26 Active predniSONE (Deltasone) 20 MG tablet Take 2 tabs orally daily for 4 days, then 1 tab daily for 6 days 14 tablet 5 Active azithromycin (Zithromax) 250 MG tablet Take 2 tabs orally on day 1 then 1 tab orally daily for 4 more days 6 tablet 5 Active levoFLOXacin (Levaquin) 750 MG tablet Take 1 tab orally daily 10 tablet 5 Active Misc. Devices (Pulse Oximeter) miscIndications:I LD (interstitial lung disease) ([facility]) Use to check pulse ox prn 1 each 5 Active Hospital, Clinic, or Other Facility Administered Medication Ordered Dose Route Frequency Start Date End Date Status ipratropium-albutero l (Duo-Neb) 0.5-2.5 mg/3 mL nebulizer solution 3 mgIndications:Chroni c cough,ILD (interstitial lung disease) ([facility]) 3 mg NEBULIZATION Once 11/04/2024 11/04/2024 Ende d predniSONE (Deltasone) tablet 50 mgIndications:Chroni c cough,ILD (interstitial lung disease) ([facility]) 50 mg PO Once 11/04/2024 11/04/2024 Ended Active Problems Problem Noted Date Diagnosed Date Diabetes mellitus due to und erlying condition with diabetic peripheral angiopathy without gangrene, without long-term current use of insulin 09/28/2024 Rash 01/30/2023 Assessment & Plan (01/30/2023 11:11 [...] Encounters Date Type Department Care Team Description 11/04/2024 11:15 AM EST Office Visit [facility] [address] [place] [address] Sigrid Avilez MD ILD (interstitial lung disease) ([facility]) (Primary Dx); Chronic cough; Type 2 diabetes mellitus with hyperglycemia, without long-term current use of insulin ([facility]); Hypoxia 11/04/2024 Telephone [facility] [address] [place] [address] Sigrid Avilez MD Medication Question 11/04/2024 Travel 09/28/2024 9:30 AM EST Office Visit [facility] [address] [place] [address] Sigrid Avilez MD Encounter for immunization (Primary Dx); Diabetes mellitus without complication ([facility]); Prostate cancer screening; Tobacco dependence syndrome; 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, without long-term current use of insulin ([facility]); ILD (interstitial lung disease) (CMS/HCC) 09/28/2024 Travel 09/09/2024 Telephone [facility] [address] [place] [address] Sigrid Avilez MD Prior Authorization (Trulicity ) 09/09/2024 Telephone [facility] [address] [place] [address] Sigrid Avilez MD Medication Question 09/08/2024 Telephone [facility] [address] [place] [address] Sigrid Avilez MD Med Refill from Last [...] Mass Index 23.78 11/04/2024 10:31 AM EST Plan of Treatment Upcoming Encounters Date Type Department Care Team ([facility] Contact Info) Description 01/04/2025 9:30 AM EDT Office Visit [facility] [address] [place] [address] Sigrid Avilez MD [address] [place] [address] Health Maintenance Due Date Last Done Comments CT Colonography 1955 Colonoscopy 1955 FIT 1955 FOBT 1955 Sigmoidoscopy 1955 Hepatitis C Screening 1973 Hepatitis A Vaccines (1 of 2 - Risk 2-dose series) 1974 RSV Patients and Patients Aged 60 years or older (1 - Risk 60-74 years 1-dose series) 2015 Diabetes: Hemoglobin A1C 03/28/2025 025, 03/24/2024, 10/27/2023, Additional history exists Lipid Panel 03/28/2025 03/28/2024, 12/0 05/2022, 11/27/2021 Alcohol/Substance Use Screening 09/28/2025 09/28/2024 Depression Screening 09/28/2025 09/28/2024, 09/28/19 Diabetes: Foot Exam 09/28/2025 09/28/2024, 09/28/2024, 09/28/2024, Additional history exists Diabetes: Urine Protein Screening 09/28/2025 09/28/2024, 11/27/2021, 10/11/2019 SDOH Screening 09/28/2025 09/28/2024 Tobacco Screening 09/28/2025 [...] hyperglycemia, without long-term current use of insulin (CMS/HCC) ALBUMIN, RANDOM URINE W/CREATININE Routine 09/28/2024 10:16 AM EST Encounter for immunization Diabetes mellitus without complication (CMS/HCC) CBC WITH AUTO DIFFERENTIAL Routine 09/28/2024 10:13 AM EST Encounter for immunization Diabetes mellitus without complication (CMS/HCC) HEPATIC FUNCTION PANEL Routine 09/28/2024 10:13 AM EST Encounter for immunization Diabetes mellitus without complication (CMS/HCC) PSA, SCREEN Routine 09/28/2024 10:13 AM EST Encounter for immunization Diabetes mellitus without complication (CMS/HCC) Prostate cancer screening TSH W/REFLEX TO FT4 Routine 09/28/2024 1 0:13 AM EST Encounter for immunization Diabetes mellitus without complication (CMS/HCC) BASIC METABOLIC PANEL, FASTING Routine 09/28/2024 10:13 AM EST Encounter for immunization Diabetes mellitus without complication (CMS/HCC) POCT GLYCATED HEMOGLOBIN, TOTAL Routine 09/28/2024 10:02 AM EST Diabetes mellitus without complication (CMS/HCC) POCT GLUCOSE Routine 09/28/2024 10:02 AM EST Diabetes mellitus without complication (CMS/HCC) LIPID PANEL, STANDARD Routine 03/28/2024 9:15 AM EDT Diabetes mellitus without complication (CMS/HCC) LAB COLOGUARD?? COLON CANCER SCREEN Routine 08/14/2023 9:00 AM EST Colon cancer screening from Last 3 Months or Most Recently Relevant to Health Maintenance Results * (ABNORMAL) POCT glucose manually resulted (11/04/2024 10:32 AM EST) Only the most recent of2 resultswithin the time period is included. Glucose Blood, POC 186 60 - 200 mg/dL QC Media Lot # Comment:[id number] Lot# Expiration Date Comment:03/02/2025 Blood Capillary blood specimen / Unknown 11/04/2024 10:32 AM EST Sigrid Avilez MD POINT OF CARE TEST ENTER/EDIT ORDERABLES Final Result * (ABNORMAL) Albumin, Random Urine W/Creatinine (09/28/2024 10:16 AM EST) Pathologist [facility] Creatinine, Urine 177.21 mg/dL [facility] Microalbumin Urine 54.0 mg/L [facility] Microalbum Creatinine Ratio Ur 30.4(H) <30 ug/mg cr [facility] Comment:Albumin/Creatinine R at Reference Ranges: Normal: < 30 ug/mg creatinine Microalbuminuria: 30 - 300 ug/mg creatinineClinical Albuminuria: > 300 ug/mg creatinine Urine (Urine, Random) 09/28/2024 10:16 AM EST 09/28/2024 2:31 PM EST Sigrid Avilez MD LAB URINE ORDERABLES Final Re sult [facility] [address] [place] [phone] * (ABNORMAL) Basic Metabolic Panel, Fasting (09/28/2024 10:13 AM EST) Sodium 139 135 - 145 mmol/L [facility] Potassium 3.9 3.3 - 5.1 mmol/L [facility] Chloride 107 96 - 108 mmol/L [facility] Carbon Dioxide 28 22 - 29 mmol/L [facility] Anion Gap 8(L) 12 - 20 [facility] Urea Nitrogen (BUN) 12 9 - 16 mg/dL [facility] Creatinine, Serum 0.73 0.5 - 1.4 mg/dL [facility] Estimated Glomerular Filt Rate >60 [facility] Comment:Chronic Kidney Disea se: Estimated GFR < 60 mL/min/[id number] Kidney Disease: Estimated GFR < 15 mL/min/1.73m2 Glucose Fasting 105(H) 60 - 99 mg/dL [facility] Comment:A fasting glucose fr om 100-125 mg/dl is considered impaired(pre-diabetes). Calcium 8.4 8.4 - 10.2 mg/dL [facility] Blood Venous blood specimen / Unknown 09/28/2024 10:13 AM EST 09/28/2024 2:39 PM EST Sigrid Avilez MD LAB BLOOD ORDERABLES Final Re sult Performing Organization Address City/[facility]/ZIP Co de Phone Number [facility] [address] [place] [phone] * PSA, Screen (09/28/2024 10:13 AM EST) PSA, Total 1.38 <0.05 - 4.0 ng/mL [facility] Comment:PSA methodology: Malaika Whalen i ChemiluminescentMicroparticle Immunoassay (CMIA) Blood Venous blood specimen / Unknown 09/28/2024 10:13 AM EST 09/28/2024 2:39 PM EST Sigrid Avilez MD LAB BLOOD ORDERABLES Final Re sult Performing Organization Address City/[facility]/ZIP Co de Phone Number [facility] [address] [place] [phone] * TSH W/Reflex to FT4 (09/28/2024 10:13 AM EST) TSH reflex Free T4 3.91 0.32 - 4.0 uIU/mL [facility] Blood Venous blood specimen / Unknown 09/28/2024 10:13 AM EST 09/28/2024 2:39 PM EST us Sigrid Avilez MD LAB BLOOD ORDERABLES Final Re sult [facility] [address] [place] [phone] [phone] * (ABNORMAL) CBC auto differential (09/28/2024 10:13 AM EST) White Blood Count 10.5 4.8 - 10.8 X10*3/uL [facility] Red Blood Count 4.81 4.60 - 5.80 X10*6/uL [facility] Hemoglobin 14.2 14.0 - 18.0 g/dl [facility] Hematocrit 44.0 42.0 - 52.0 % [facility] Mean Corpuscular Volume 91.5 80.0 - 98.0 fL [facility] Mean Corpuscular Hemoglobin 29.5 27.0 - 33.0 pg [facility] Mean Corpuscular HGB Conc 32.3 31.0 - 36.0 g/dl [facility] Red Cell Distribution Width 12.7 11.0 - 16.0 % [facility] Platelet Count 256 160 - 400 X10*3/uL [facility] Mean Platelet Volume 11.4 9.4 - 12.4 fL [facility] Neutrophils Percent Auto 66.9 45 - 73 % [facility] Imm Gran Pct Auto 0.4 0.0 - 0.4 % [facility] Lymphocytes Percent Auto 20.2 20 - 40 % [facility] Monocytes Percent Auto 7.4 2 - 11 % [facility] Eosinophils Percent Auto 4.5(H) 0 - 4 % [facility] Basophils Percent Auto 0.6 0 - 2 % [facility] NRBC Pct Auto 0.0 0.0 - 0.2 /100WBC [facility] Neutrophils Absolute Auto 7.0 2.0 - 8.3 x10*3/uL [facility] Imm Gran Abs Auto 0.04(H) 0.00 - 0.03 X10*3/uL [facility] Lymphocytes Absolute Auto 2.1 1.2 - 4.9 X10*3/uL [facility] Monocytes Absolute Auto 0.8 0.1 - 1.2 X10*3/uL [facility] Eosinophils Absolute Auto 0.5(H) 0.0 - 0.4 X10*3/uL [facility] Basophils Absolute Auto 0.1 0.0 - 0.2 X10*3/uL [facility] NRBC Abs Auto 0.000 0.0 - 0.012 X10*3/uL [facility] Blood Venous blood specimen / Unknown 09/28/2024 10:13 AM EST 09/28/2024 2:39 PM EST Sigrid Avilez MD LAB BLOOD ORDERABLES Final Re sult Performing Organization Address [facility] Co de Phone Number [facility] [address] [place] [phone] * Hepatic Function Panel (09/28/2024 10:13 AM EST) Bilirubin, Total 0.5 0.0 - 1.0 mg/dL [facility] Bilirubin, Direct 0.2 0.0 - 0.5 mg/dL [facility] Aspartate Amino Transferase 24 5 - 37 U/L [facility] Alanine Aminotransferase 18 0 - 40 U/L [facility] Total Protein 7.6 6.5 - 8.0 g/dL [facility] Albumin Level 3.5 3.5 - 5.0 g/dL [facility] Alkaline Phosphatase 78 39 - 117 U/L [facility] Blood Venous blood specimen / Unknown 09/28/2024 10:13 AM EST 09/28/2024 2:39 PM EST Sigrid Avilez MD LAB BLOOD ORDERABLES Final Re sult Performing Organization Address [facility]/ZIP Co de Phone Number [facility] [address] [place] [phone] * (ABNORMAL) POCT HGB A1C (09/28/2024 10:02 AM EST) Hemoglobin A1C 6.7(A) 4.0 - 6.0 % QC Media Lot # [id number] Lot# Expiration Date Blood 09/28/2024 10:0 2 AM EST us Sigrid Avilez MD POINT OF CARE TEST ENTER/EDIT ORDERABLES Final Result * Lipid Panel, Standard (03/28/2024 9:15 AM EDT) Triglycerides 84 <150 mg/dL [facility] Comment:Desirable Triglyceri de: less than 150 mg/dLBorderline High Triglyceride 150-199 mg/dLHigh Triglyceride: 200-499 mg/dLVery High Triglyceride: greater than or equal to 5OO mg/dL Cholesterol 133 <200 mg/dL [facility] Comment:Desirable Cholestero l: less than 200 mg/dLBorderline High Cholesterol: 200-239 mg/dLHigh Cholesterol: greater than 239 mg/dL LDL Cholesterol Calculated 61 <100 mg/dL [facility] Comment:Desirable LDL: less than 100 mg/dLNear Optimal/Above Optimal LDL: 110- 129 mg/dLBorderline High LDL: 130-159 mg/dLHigh LDL: 160-189 mg/dLVery High LDL: greater than or equal to 190 mg/dL HDL Cholesterol 56 >40 mg/dL [facility] Comment:Desirable HDL: great er than 40 mg/dL Note: This HDL assay may give artificially low results in patients with liver disease. Blood Venous blood specimen / Unknown 03/28/2024 9:15 AM EDT 03/28/2024 2:13 PM EDT Sigrid Avilez MD LAB BLOOD ORDERABLES Final Re sult [facility] [address] [place] [phone] * Cologuard?? colon cancer screening (08/14/2023 9:00 AM EST) [facility] Cologuard Result Negative Negative 08/21/20 5:50 PM EST [employer] (CLIA #:[id number]) Comment: NEGATIVE TEST RESULT. A negative Cologuard [...] screened with both Cologuard and colonoscopy. (Bony Rebolledo. et al, N Engl J Med 2014;370(14):1286- 1297) The normal value (reference range) for this assay is negative. COLOGUARD RE-SCREENING RECOMMENDATION: Periodic colorectal cancer screening is an important part of preventive healthcare for asymptomatic individuals at average risk for colorectal cancer. ??Following a negative Cologuard result, the [employer] and U.S. Multi-Society Task Force screening guidelines recommend a Cologuard re-screening interval of 3 years. References: [employer] Guideline for Colorectal Cancer Screening: https://www.cancer.org/cancer/isden-vnupkc-xcushp/pwrrvciyp-jcsvovifo-dwsbfbi/ac s-rec ommendations.html.; Hernandez LICONA, Antonino MEDEROS, Jessica FosterK, Colorectal Cancer Screening: Recommendations for Physicians and Patients from the U.S. Multi-Society Task Force on Colorectal Cancer Screening , Am J Gastroenterology 2017; 112:5173-2057. TEST DESCRIPTION: Composite algorithmic analysis of stool [...] screened with both Cologuard and colonoscopy. (Bony Hatfield al, N Engl J Med 2014;370(14):8670-7478.) Cologuard may produce a false negative or false positive result (no colorectal cancer or precancerous polyp present at colonoscopy follow up). A negative Cologuard test result does not guarantee the absence of CRC or advanced adenoma (pre-cancer). The current Cologuard screening interval is every 3 years. ([employer] and U.S. Multi-Society Task Force). Cologuard performance data in a 10,000 patient pivotal study using colonoscopy as the reference method can be accessed at the following location: www.[employer]/results. Additional description of the Cologuard test process, warnings and precautions can be found at www.[employer].com. Stool specimen (specimen) 08/14/2023 9:00 AM EST 08/17/2023 1:58 PM EST us Sigrid Avilez MD LAB MOLECULAR DIAGNOSTICS ORD ERABLES Final Result [employer] (CLIA #:[id number]) [address] [place] [address], from Last 3 Months or Most Recently Relevant to Health Maintenance Insurance [place] [id number] [facility] [place] [address] Care Teams Editor Publications Relationship Specialty Start Date End Date Sigrid Avilez MD [address] [place] [address] PCP - General Family Medicine 08/31/18
--- OUTSIDE RECORDS SUMMARY | 2024-11-07 08:56 | XMS_ITS | Encounter Summary ---
Author Organization [employer] Address [address] [place] [address] Care Team Providers Care Polytechnic Teacher Name Role Phone Sigrid Avilez MD Primary Care Provider [phone] Encounter Details Date Type Department Care Team (Late st Contact Info) Description 03/25/2024 Orders Only [facility]S [address] [place], [place] [phone] Provider, MD Ernst Social History Tobacco Use [...] Description 01/04/2025 9:30 AM EDT Office Visit [facility] P[facility]S [address] [place] [address] Sigrid Avilez MD [address] [place] [address] documented as of this encounter Procedures Procedure [...] documented as of this encounter Care Teams Polytechnic Teacher Relationship Specialty Start Date End Date Sigrid Avilez MD [address] [place] [address] PCP - General Family Medicine 08/31/18 documented as of this encounter
--- OUTSIDE RECORDS SUMMARY | 2024-11-07 08:56 | XMS_ITS | Encounter Summary ---
Author Organization [employer] Address [address] [place] [address] Care Team Providers Care Horticulture Supervisor Name Role Phone Sigrid Avilez MD Primary Care Provider [phone] Reason for Visit * Reason Onset Date Comments Medication Question 11/04/2024 Encounter Details Date Type Department Care Team (Late st Contact Info) Description 11/04/2024 Telephone [facility] [address] [place] [address] Sigrid Avilez MD [address] [place] [address] Medication Question Social History Tobacco Use Types [...] encounter Miscellaneous Notes * Telephone Encounter - Mario Drake - 11/04/2024 4:45 PM EST Tc from Daughter calling in regards to ipratropium-albuterol (Duo-Neb) 0.5-2.5 mg/3 mL nebulizer solution 3 mg stating [facility] have notreceived medication. Please contact Daughter at [phone]. documented in this encounter Plan of Treatment Upcoming Encounters Date Type Department Care Team ([facility] st Contact Info) Description 01/04/2025 9:30 AM EDT Office Visit [facility] MED & PEDS [address] [place] [address] Sigrid Avilez MD [address] [place] [address] documented as of this encounter Visit Diagnoses Not on filedocumented in this encounter Additional Health Concerns Assessment Noted Time PHQ-9 Depression Total Score: 0 09/28/19 25 9:18 AM EST documented as of this encounter Care Teams Horticulture Supervisor Relationship Specialty Start Date End Date Sigrid Avilez MD [address] [place] [address] PCP - General Family Medicine 1/1/19 documented as of this encounter
--- OUTSIDE RECORDS SUMMARY | 2024-11-07 08:56 | XMS_ITS | Encounter Summary ---
Author Organization [employer] Address [address] [place] [address] Care Team Providers Care Raspberry Checker Name Role Phone Sigrid Avilez MD Primary Care Provider Encounter Details Date Type Department Care Team (Latest Contact Info) Description 11/04/2024 Travel Social History Tobacco Use Types Packs/Day [...] 01/04/2025 9:30 AM EDT Office Visit [facility] [address] [place] [address] Sigrid Avilez MD [address] [place] [address] documented as of this encounter Visit Diagnoses Not on filedocumented in this encounter Additional Health Concerns Assessment Noted Time PHQ-9 Depression Total Score: 0 09/28/19 25 9:18 AM EST documented as of this encounter Care Teams Raspberry Checker Relationship Specialty Start Date End Date Sigrid Avilez MD [address] [place] [address] PCP - General Family Medicine 08/31/18 documented as of this encounter
--- OUTSIDE RECORDS SUMMARY | 2024-11-07 08:57 | XMS_ITS | Encounter Summary ---
Author Organization [employer] Address [address] [place] [address] [address] [place] [address] Care Team Providers Care Tour Manager Name Role Phone Sigrid Avilez MD Primary Care Provider [phone] Reason for Visit * Reason Comments Med Refill Encounter Details Date Type Department Care Team (Late Contact Info) Description 03/02/2023 Refill [facility] MED & PEDS [address] [place] [address] Sigrid Avilez MD [address] [place] [address] Social History Tobacco Use Types Packs/Day Years [...] Description 01/04/2025 9:30 AM EDT Office Visit [facility] MED & PEDS [address] [place] [address] Sigrid Avilez MD [address] [place] [address] documented as of this encounter Visit Diagnoses Not on filedocumented in this encounter Additional Health Concerns Assessment Noted Time PHQ-9 Depression Total Score: 0 10/15/19 23 9:23 AM EST documented as of this encounter Care Teams Tour Manager Relationship Specialty Start Date End Date Sigrid Avilez MD [address] [place] [address] PCP - General Family Medicine 08/31/18 documented as of this encounter
== END 2024-11-07 08:35 | disposition home or self-care (01) ==
LOC: HO.XRAY 08:34
PROVIDERS: PCP Pediatrics; Visit Provider Pediatrics
DX: J84.9 Interstitial pulmonary disease, unspecified (principal); R05.3 Chronic cough; R09.02 Hypoxemia
CPT/HCPCS: 71046

== ENCOUNTER → 2024-11-07 08:41 | Outpatient (BNV) | payer MEDICARE, MEDICAID, SELFPAY | PROVIDERS: PCP Pediatrics; Visit Provider Radiology Diagnostic Radiology | DX: R09.02 Hypoxemia (principal) | CPT/HCPCS: 71046 ==

== ENCOUNTER → 2024-12-12 13:12 | Outpatient (BNVA) | payer MEDICARE, MEDICAID, SELFPAY | PROVIDERS: PCP Pediatrics; Visit Provider Nurse Practitioner Family | DX: J84.9 Interstitial pulmonary disease, unspecified (principal); R93.89 Abnormal findings on diagnostic imaging of other specified body structures; R05.3 Chronic cough; Z87.891 Personal history of nicotine dependence | CPT/HCPCS: 99202 ==

== ENCOUNTER 2024-12-16 15:46 | Outpatient (REF) | payer MEDICARE, MEDICAID, SELFPAY ==
--- OUTSIDE RECORDS SUMMARY | 2024-12-16 15:48 | XMS_ITS | Encounter Summary ---
Author Organization [employer] Address [address] [place] [address] [address] [place] [address] Care Team Providers Care Bed Machine Operator Name Role Phone Sigrid Avilez MD Primary Care Provider [phone] Reason for Visit * Reason Comments Med Change Request Encounter Details Date Type Department Care Team (Late Contact Info) Description 11/18/2022 Refill [facility] [address] [place], [place] [phone] Sigrid Avilez MD [address] [place] [address] Type 2 diabetes mellitus without complication, without long-term current use of insulin ([facility]) Social History Tobacco Use Types [...] Description 01/04/2025 9:30 AM EDT Office Visit [facility] [address] [place] [address] Sigrid Avilez MD [address] [place] [address] documented as of this encounter Visit Diagnoses Diagnosis Type 2 diabetes mellitus without complication, without long-term current use of insulin ([facility]) documented in this encounter Additional Health Concerns Assessment Noted Time PHQ-9 Depression Total Score: 0 10/15/19 23 9:23 AM EST documented as of this encounter Care Teams Bed Machine Operator Relationship Specialty Start Date End Date Sigrid Avilez MD [address] [place] [address] PCP - General Family Medicine 08/31/18 documented as of this encounter
--- OUTSIDE RECORDS SUMMARY | 2024-12-16 15:48 | XMS_ITS | Encounter Summary ---
Author Organization [employer] Address [address] [facility] [address] [place] [address] Care Team Providers Care Ruby On Rails Consultant Name Role Phone Sigrid Avilez MD Primary Care Provider [phone] Encounter Details Date Type Department Care Team ([facility] Contact Info) Description 11/20/2022 Telephone [facility] [address] [place], [place] [phone] Sigrid Avilez MD [address] [place], [place] [phone] Social History Tobacco Use Types Packs/Day Years [...] Upcoming Encounters Date Type Department Care Team ([facility] Contact Info) Description 01/04/2025 9:30 AM EDT Office Visit [facility] [address] [place], [place] [phone] Sigrid Avilez MD [address] [place] [address] documented as of this encounter Visit Diagnoses Not on filedocumented in this encounter Additional Health Concerns Assessment Noted Time PHQ-9 Depression Total Score: 0 10/15/19 23 9:23 AM EST documented as of this encounter Care Teams Ruby On Rails Consultant Relationship Specialty Start Date End Date Sigrid Avilez MD [address] [place] [address] PCP - General Family Medicine 08/31/18 documented as of this encounter
--- OUTSIDE RECORDS SUMMARY | 2024-12-16 15:48 | XMS_ITS | Encounter Summary ---
Author Organization [employer] Address [address] [facility] 7[address] [place] [address] Care Team Providers Care Livestock Inspector Name Role Phone Sigrid Avilez MD Primary Care Provider [phone] Reason for Visit * Reason Comments Med Change Request Encounter Details Date Type Department Care Team (Late Contact Info) Description 01/20/2023 Refill [facility] [address] [place], [place] [phone] Sigrid Avilez MD [address] [place] [address] Type 2 diabetes mellitus without complication, without long-term current use of insulin ([facility]) Social History Tobacco Use Types Packs/Day Years [...] Upcoming Encounters Date Type Department Care Team ([facility] Contact Info) Description 01/04/2025 9:30 AM EDT Office Visit [facility] [address] [place] [address] Sigrid Avilez MD [address] [place] [address] documented as of this encounter Visit Diagnoses Diagnosis Type 2 diabetes mellitus without complication, without long-term current use of insulin ([facility]) documented in this encounter Additional Health Concerns Assessment Noted Time PHQ-9 Depression Total Score: 0 10/15/19 23 9:23 AM EST documented as of this encounter Care Teams Livestock Inspector Relationship Specialty Start Date End Date Sigrid Avilez MD [address] [place] [address] PCP - General Family Medicine 08/31/18 documented as of this encounter
--- OUTSIDE RECORDS SUMMARY | 2024-12-16 15:48 | XMS_ITS | Encounter Summary ---
Author Organization [employer] Address [address] [place] [address] 7[address] [place] [address] Care Team Providers Care Skimmer Reverberatory Name Role Phone Sigrid Avilez MD Primary Care Provider Reason for Visit * Reason Comments Med Change Request Encounter Details Date Type Department Care Team ([facility] Contact Info) Description 01/20/[address] [facility] [address] [place] [address] Germania Chris MD [address] [place] [address] Social History Tobacco Use Types Packs/Day Years [...] Upcoming Encounters Date Type Department Care Team ([facility] Contact Info) Description 01/04/2025 9:30 AM EDT Office Visit [facility] [address] [place] [address] Sigrid Avilez MD [address] [place] [address] documented as of this encounter Visit Diagnoses Not on filedocumented in this encounter Additional Health Concerns Assessment Noted Time PHQ-9 Depression Total Score: 0 10/15/19 23 9:23 AM EST documented as of this encounter Care Teams Skimmer Reverberatory Relationship Specialty Start Date End Date Sigrid Avilez MD [address] [place] [address] PCP - General Family Medicine 08/31/18 documented as of this encounter
--- OUTSIDE RECORDS SUMMARY | 2024-12-16 15:48 | XMS_ITS | Encounter Summary ---
Author Organization [employer] Address [address] [place] [address] [address] [place] [address] Care Team Providers Care Air Plant Engineer Name Role Phone Sigrid Avilez MD Primary Care Provider [phone] Encounter Details Date Type Department Care Team ([facility] Contact Info) Description 01/13/2023 Orders Only [facility] [address] [place] [address] Esha Gilman LPN Social History Tobacco Use [...] Upcoming Encounters Date Type Department Care Team ([facility] Contact Info) Description 01/04/2025 9:30 AM EDT Office Visit [facility] [address] [place] [address] Sigrid Avilez MD [address] [place] [address] documented as of this encounter Visit Diagnoses Not on filedocumented in this encounter Additional Health Concerns Assessment Noted Time PHQ-9 Depression Total Score: 0 10/15/19 23 9:23 AM EST documented as of this encounter Care Teams Air Plant Engineer Relationship Specialty Start Date End Date Sigrid Avilez MD [address] [place] [address] PCP - General Family Medicine 08/31/18 documented as of this encounter
--- OUTSIDE RECORDS SUMMARY | 2024-12-16 15:48 | XMS_ITS | Clinical Summary ---
Author Organization [employer] Address [address] [place] [address] [address] [place] [address] Care Team Providers Care Disabilities Services Officer Name Role Phone Sigrid Avilez MD Primary Care Provider [phone] Allergies Active Allergy Reactions Criticality Noted Date Comments Aspirin Unknown,Rash Low 04/16/2012 Simvastatin Diarrhea 06/23/2024 Medications Cyanocobalamin 1000 MCG capsule Take 1 capsule by mouth in the morning. 1 Active ergocalciferol (Vitamin D-2) 1.25 MG (01516 UT) capsule Take 1 capsule by mouth 1 (one) time per week. 2 Active fluticasone (Flonase) 50 MCG/ACT nasal spray Administer 1 spray into each nostril 1 (one) time each day. 2 Active pantoprazole (ProtoNix) 20 MG EC tabletIndication s:Newly diagnosed diabetes (CMS/HCC) Take 1 tab orally daily 90 tablet 3 3 Active omega-3 (Fish Oil) 1000 MG capsuleIndicatio ns:Newly diagnosed diabetes (CMS/HCC) Take 1 capsule orally bid 180 capsule 3 3 Active albuterol (Proventil HFA) 108 (90 Base) MCG/ACT inhalerIndicatio ns:Cough present for greater than 3 weeks Inhale 2 puffs every 4 (four) hours. 18 g 1 3 Active cetirizine (ZyrTEC) 10 MG tablet TOME LANDON TABLETA TODOS LOS GUZMAN 90 tablet 3 3 Active acetaminophen (Tylenol) 500 MG tablet Take 2 tablets by mouth if needed each day. OTC Active Lancets (OneTouch Delica Plus [id number]) misc Check sugars twice a day 100 each 11 3 Active triamcinolone (Kenalog) 0.1 % creamIndications :Rash Apply topically if needed in the morning and at bedtime (pain and swelling). 30 g 3 Active Lancets (OneTouch Delica Plus [id number]) misc CHECK BLOOD SUGAR TWO TIMES A DAY 100 each 3 Active albuterol 108 (90 Base) MCG/ACT inhalerIndicatio ns:Chronic cough INHALE 2 PUFFS EVERY 6 HOURS IF NEEDED FOR WHEEZING. 18 g 2 4 Active rosuvastatin (Crestor) 40 MG tabletIndication s:Newly diagnosed diabetes (CMS/HCC) TOME LANDON TABLETA POR VIA ORAL AL ACOSTARSE 90 tablet 3 4 Active dulaglutide (Trulicity) 0.75 MG/0.5ML solution pen-injector INJECT POR VIA SUBCUTANEA 0.75 MG UNDER THE SKIN 1 TIME PER WEEK. 0.5 mL 11 4 Active Lancets (OneTouch Delica Plus [id number]) miscIndications: Diabetes mellitus without complication (CMS/HCC) USE TO CHECK BLOOD SUGAR ONCE DAILY 100 each 11 4 Active amLODIPine (Norvasc) 10 MG tablet TOME LANDON TABLETA TODOS LOS GUZMAN 90 tablet 3 4 Active OneTouch Ultra Test test stripIndications :Diabetes mellitus without complication ([facility]/HCC) USE TO CHECK BLOOD SUGAR TWO TIMES A DAY 100 strip 11 4 Active losartan (Cozaar) 25 MG tablet Take 1 tablet (25 mg) by mouth Once per day. 90 tablet 3 5 Active albuterol (Ventolin HFA) 108 (90 Base) MCG/ACT inhaler Inhale 2 puffs every 6 (six) hours if needed for wheezing. 18 g 11 5 026 Active fluticasone-salm eterol (AirDuo RespiClick) 232-14 MCG/ACT inhalerIndicatio ns:Tobacco dependence syndrome Inhale 1 puff 2 times daily. Rinse mouth with water after use to reduce aftertaste and incidence of candidiasis. Do not swallow. 1 each 11 5 Active predniSONE (Deltasone) 20 MG tablet Take [...] tablet 5 Active Misc. Devices (Pulse Oximeter) miscIndications: ILD (interstitial lung disease) (CMS/[facility]) Use to check pulse ox prn 1 each 5 Active albuterol (2.5 MG/3ML) 0.083% nebulizer solutionIndicati ons:ILD (interstitial lung disease) ([facility]) Take 3 mL (2.5 mg) by nebulization every 6 (six) hours if needed for wheezing. 75 mL 5 Active fluticasone-salm eterol (Advair) 230-21 MCG/ACT inhaler Inhale 2 puffs in the morning and at bedtime. Rinse mouth with water after use to reduce aftertaste and incidence of candidiasis. Do not swallow. 12 g 5 Active Active Problems Problem Noted Date Diagnosed Date [...] Encounters Date Type Department Care Team Description 12/12/2024 Telephone [facility] PED[facility] [address] [place] [address] Sigrid Avilez MD Walk-In 12/09/2024 Orders Only [facility] [address] [place] [address] ProviderErnst MD 11/16/2024 Telephone [facility] MED [facility] P[facility] [address] [place] [address] Sigrid Avilez MD Prior Authorization 11/07/2024 Orders Only [facility] [address] [place] [address] Sigrid Avilez MD ILD (interstitial lung disease) (CMS/HCC) (Primary Dx) 11/04/2024 11:15 AM EST Office Visit [facility] [address] [place] [address] Sigrid Avilez MD ILD (interstitial lung disease) (CMS/HCC) (Primary Dx); Chronic cough; Type 2 diabetes mellitus with hyperglycemia, without long-term current use of insulin (CMS/HCC); Hypoxia 11/04/2024 Telephone [facility] [address] [place] [address] Sigrid Avilez MD Medication Question 11/04/2024 Travel 09/28/2024 9:30 AM EST Office Visit [facility] [address] [place] [address] Sigrid Avilez MD Encounter for immunization (Primary Dx); Diabetes mellitus without complication ([facility]); Prostate cancer screening; Tobacco dependence syndrome; 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, without long-term current use of insulin ([facility]); ILD (interstitial lung disease) ([facility]) 09/28/2024 Travel from Last 3 Months Immunizations Name Administration [...] Description 01/04/2025 9:30 AM EDT Office Visit [facility] [address] [place], [place] [phone] Sigrid Avilez MD [address] [place] [address] Health Maintenance Due Date Last Done Comments CT Colonography 1955 Colonoscopy 1955 FIT 1955 FOBT 1955 Sigmoidoscopy 1955 Hepatitis C Screening 1973 RSV Patients and Patients Aged 60 years [...] patient's age to complete this topic Hepatitis A Vaccines Aged Out No long er eligible [...] Procedure Name Priority Date/Time Associated Diagnosis Comments XR CHEST 2 VIEWS Routine 11/07/2024 8:41 AM EDT Chronic cough ILD (interstitial lung disease) (CMS/HCC) Hypoxia POCT GLUCOSE Routine 11/04/2024 10:32 AM EST [...] Recently Relevant to Health Maintenance Results * XR Chest 2 Views (11/07/2024 8:41 AM EDT) Anatomical Region Laterality Modality Chest Radiographic Carol ging 11/07/2024 8:41 AM EDT Narrative 11/08/2024 8:32 AM EDT ? [facility] ?[address] ?[place] [address] ?XRay Report ? Signed ? Patient: Benny Vásquez ?MR#: [id number] ?? [id number] ? : 1955 ?Acct:[id number] ? Age/Sex: 69 / M ?ADM Date: 11/07/24 ? Loc: HO.XRAY ? Attending Dr: Sigrid Avilez MD ? Ordering Physician: Sigrid Avielz MD ?? Date of Service: 11/07/24 ?? Procedure(s): XR chest 2V ?? Accession Number(s): [id number] ? cc: Sigrid Avilez MD ? EXAMINATION: ?? XR CHEST ? CLINICAL INFORMATION: ?? rule out pneumonia,hypoxia ? COMPARISON: ?? June 22, 2015. ? TECHNIQUE: ?? 2 views of the chest were obtained. ? FINDINGS: ?? Pulmonary reticular pattern. Prominence of the interstitial markings. ?? Linear opacities in the left lower hemithorax. ?? No pleural effusion. No pneumothorax. Cardiomediastinal silhouette ?? margins are indistinct. ?? Multilevel thoracolumbar spondylosis. Vascular clips right upper ?? quadrant abdomen and likely cholecystectomy. ?? Abundant stool, large intestine. Gas filled mildly prominent small ?? bowel loops. ? XR/XR chest 2V ?? IMPRESSION: ?? Consider acute on chronic airspace disease in the correct clinical ?? settings. Recommend follow-up ultrasound to resolution. ? Electronically signed by: ??Demarcus Turner MD ??11/08/2024 08:29 AM ?? EDT RP ? Dictated By: ?Demarcus Palacios MD ? Signed By: ?<Electronically signed by Demarcus Painter MD in OV> ? 11/08/24828 ? DD/ 0841 ? TD/TT: 11/07/24 0851 ? Rug Cleaner Helper: ? Procedure Note [place], Image - 11/08/[address] [address] XRay Report Signed Patient: Adan Vásquez#: [id number] : 5Acct:[id number] Age/Sex: 69 / MADM Date: 11/07/24 Loc: HO.XRAY Attending Dr: Sigrid Avilez MD Ordering Physician: Sigrid Avilez MD Date of Service: 11/07/24 Procedure(s): XR chest 2V Accession Number(s): [id number] cc: Sigrid Avilez MD EXAMINATION: XR CHEST CLINICAL INFORMATION: rule out pneumonia,hypoxia COMPARISON: June 22, 2015. TECHNIQUE: 2 views of the chest were obtained. FINDINGS: Pulmonary reticular pattern. Prominence of the interstitial markings. Linear opacities in the left lower hemithorax. No pleural effusion. No pneumothorax. Cardiomediastinal silhouette margins are indistinct. Multilevel thoracolumbar spondylosis. Vascular clips right upper quadrant abdomen and likely cholecystectomy. Abundant stool, large intestine. Gas filled mildly prominent small bowel loops. XR/XR chest 2V IMPRESSION: Consider acute on chronic airspace disease in the correct clinical settings. Recommend follow-up ultrasound to resolution. Electronically signed by: Demarcus Turner MD 11/08/2024 08:29 AM EDT Dictated By: Demarcus Palacios MD Signed By: <Electronically signed by Demarcus Painter MDin OV> 11/08/24828 DD/ 0841 TD/TT: 11/07/24850 Rug Cleaner Helper: us Sigrid Avilez MD IMG XR PROCEDURES Edited Resu lt - Final * (ABNORMAL) POCT glucose manually resulted (11/04/2024 10:32 AM EST) Only the most recent of2 resultswithin the time period is included. Glucose Blood, POC 186 60 - 200 mg/dL QC Media Lot # Comment:[id number] Lot# Expiration Date Comment:03/02/2025 Blood Capillary blood specimen / Unknown 11/04/2024 10:32 AM EST us Sigrid Avilez MD POINT OF CARE TEST ENTER/EDIT ORDERABLES Final Result * (ABNORMAL) Albumin, Random Urine W/Creatinine (09/28/2024 10:16 AM EST) Creatinine, Urine 177.21 mg/dL [facility] Microalbumin Urine 54.0 mg/L [facility] Microalbum Creatinine Ratio Ur 30.4(H) <30 ug/mg cr [facility] Comment:Albumin/Creatinine R atio Reference Ranges: Normal: < 30 ug/mg creatinine Microalbuminuria: 30 - 300 ug/mg creatinineClinical Albuminuria: > 300 ug/mg creatinine Urine (Urine, Random) 09/28/2024 10:16 AM EST 09/28/2024 2:31 PM EST us Sigrid Avilez MD LAB URINE ORDERABLES Final Re sult [facility] [address] [place] [address] [phone] * (ABNORMAL) Basic Metabolic Panel, Fasting (09/28/2024 10:13 AM EST) Sodium 139 135 - 145 mmol/L [facility] Potassium 3.9 3.3 - 5.1 mmol/L [facility] Chloride 107 96 - 108 mmol/L [facility] Carbon Dioxide 28 22 - 29 mmol/L [facility] Anion Gap 8(L) 12 - 20 [facility] Urea Nitrogen (BUN) 12 9 - 16 mg/dL [facility] Creatinine, Serum 0.73 0.5 - 1.4 mg/dL [facility] Estimated Glomerular Filt Rate >60 [facility] Comment:Chronic Kidney Disea se: Estimated GFR < 60 mL/min/1.86g3Wanhji Kidney Disease: Estimated GFR < 15 mL/min/1.73m2 Glucose Fasting 105(H) 60 - 99 mg/dL [facility] Comment:A fasting glucose fr om 100-125 mg/dl is considered impaired(pre-diabetes). Calcium 8.4 8.4 - 10.2 mg/dL [facility] Blood Venous blood specimen / Unknown 09/28/2024 10:13 AM EST 09/28/2024 2:39 PM EST Sigrid Avilez MD LAB BLOOD ORDERABLES Final Re sult Performing Organization Address City/[facility] Co de Phone Number [facility] [address] [place] [phone] * PSA, Screen (09/28/2024 10:13 AM EST) Pathologist [facility] PSA, Total 1.38 <0.05 - 4.0 ng/mL [facility] Comment:PSA methodology: Malaika Whalen i ChemiluminescentMicroparticle Immunoassay (CMIA) Blood Venous blood specimen / Unknown 09/28/2024 10:13 AM EST 09/28/2024 2:39 PM EST Sigrid Avilez MD LAB BLOOD ORDERABLES Final Re sult Performing Organization Address City/[facility]/ZIP Co de Phone Number [facility] [address] [place] [phone] * TSH W/Reflex to FT4 (09/28/2024 10:13 AM EST) TSH reflex Free T4 3.91 0.32 - 4.0 uIU/mL [facility] Blood Venous blood specimen / Unknown 09/28/2024 10:13 AM EST 09/28/2024 2:39 PM EST us Sigrid Avilez MD LAB BLOOD ORDERABLES Final Re sult [facility] [address] [place] [phone] * (ABNORMAL) CBC auto differential (09/28/2024 10:13 AM EST) Pathologist [facility] White Blood Count 10.5 4.8 - 10.8 X10*3/uL [facility] Red Blood Count 4.81 4.60 - 5.80 X10*6/uL [facility] Hemoglobin 14.2 14.0 - 18.0 g/dl [facility] Hematocrit 44.0 42.0 - 52.0 % [facility] Mean Corpuscular Volume 91.5 80.0 - 98.0 fL [facility] Mean Corpuscular Hemoglobin 29.5 27.0 - 33.0 pg [facility] Mean Corpuscular HGB Conc 32.3 31.0 - 36.0 g/dl [facility] Red Cell Distribution Width 12.7 11.0 - 16.0 % [facility] Platelet Count 256 160 - 400 X10*3/uL [facility] Mean Platelet Volume 11.4 9.4 - 12.4 fL [facility] Neutrophils Percent Auto 66.9 45 - 73 % [facility] Imm Gran Pct Auto 0.4 0.0 - 0.4 % [facility] Lymphocytes Percent Auto 20.2 20 - 40 % [facility] Monocytes Percent Auto 7.4 2 - 11 % [facility] Eosinophils Percent Auto 4.5(H) 0 - 4 % [facility] Basophils Percent Auto 0.6 0 - 2 % [facility] NRBC Pct Auto 0.0 0.0 - 0.2 /100WBC [facility] Neutrophils Absolute Auto 7.0 2.0 - 8.3 x10*3/uL [facility] Imm Gran Abs Auto 0.04(H) 0.00 - 0.03 X10*3/uL [facility] Lymphocytes Absolute Auto 2.1 1.2 - 4.9 X10*3/uL [facility] Monocytes Absolute Auto 0.8 0.1 - 1.2 X10*3/uL [facility] Eosinophils Absolute Auto 0.5(H) 0.0 - 0.4 X10*3/uL [facility] Basophils Absolute Auto 0.1 0.0 - 0.2 X10*3/uL [facility] NRBC Abs Auto 0.000 0.0 - 0.012 X10*3/uL [facility] Blood Venous blood specimen / Unknown 09/28/2024 10:13 AM EST 09/28/2024 2:39 PM EST us Sigrid Avilez MD LAB BLOOD ORDERABLES Final Re sult [facility] [address] [place] [phone] * Hepatic Function Panel (09/28/2024 10:13 AM EST) Bilirubin, Total 0.5 0.0 - 1.0 mg/dL [facility] Bilirubin, Direct 0.2 0.0 - 0.5 mg/dL [facility] Aspartate Amino Transferase 24 5 - 37 U/L [facility] Alanine Aminotransferase 18 0 - 40 U/L [facility] Total Protein 7.6 6.5 - 8.0 g/dL [facility] Albumin Level 3.5 3.5 - 5.0 g/dL [facility] Alkaline Phosphatase 78 39 - 117 U/L [facility] Blood Venous blood specimen / Unknown 09/28/2024 10:13 AM EST 09/28/2024 2:39 PM EST us Sigrid Avilez MD LAB BLOOD ORDERABLES Final Re sult [facility] [address] [place] [address] [phone] * (ABNORMAL) POCT HGB A1C (09/28/2024 10:02 AM EST) Hemoglobin A1C 6.7(A) 4.0 - 6.0 % QC Media Lot # [id number] Lot# Expiration Date Blood 09/28/2024 10:0 2 AM EST Sigrid Avilez MD POINT OF CARE TEST ENTER/EDIT ORDERABLES Final Result * Lipid Panel, Standard (03/28/2024 9:15 AM EDT) Triglycerides 84 <150 mg/dL [facility] Comment:Desirable Triglyceri de: less than 150 mg/dLBorderline High Triglyceride 150-199 mg/dLHigh Triglyceride: 200-499 mg/dLVery High Triglyceride: greater than or equal to 5OO mg/dL Cholesterol 133 <200 mg/dL [facility] Comment:Desirable Cholestero l: less than 200 mg/dLBorderline High Cholesterol: 200-239 mg/dLHigh Cholesterol: greater than 239 mg/dL LDL Cholesterol Calculated 61 <100 mg/dL [facility] Comment:Desirable LDL: less than 100 mg/dLNear Optimal/Above Optimal LDL: 110- 129 mg/dLBorderline High LDL: 130-159 mg/dLHigh LDL: 160-189 mg/dLVery High LDL: greater than or equal to 190 mg/dL HDL Cholesterol 56 >40 mg/dL [facility] Comment:Desirable HDL: great er than 40 mg/dL Note: This HDL assay may give artificially low results in patients with liver disease. Blood Venous blood specimen / Unknown 03/28/2024 9:15 AM EDT 03/28/2024 2:13 PM EDT Sigrid Avilez MD LAB BLOOD ORDERABLES Final Re sult [facility] [address] [place], [place] [phone] * Cologuard?? colon cancer screening (08/14/2023 9:00 AM EST) Cologuard Result Negative Negative 08/21/20 5:[address] [employer] (CLIA #:[id number]) Comment: NEGATIVE TEST RESULT. A negative Cologuard [...] Cancer Society Guideline for Colorectal Cancer Screening: https://www.cancer.org/cancer/ubcju-gsfulp-htyzmo/oockksozu-rvqqmuopj-ktkuwzz/ac s-rec ommendations.html.; Hernandez LICONA, Antonino MEDEROS, Jessica FosterK, Colorectal Cancer Screening: Recommendations for Physicians and Patients from the U.S. Multi-Society Task Force on Colorectal Cancer Screening , Am J Gastroenterology 2017; 112:9710-9358. TEST DESCRIPTION: Composite algorithmic analysis of stool [...] Rebolledo. et al, N Engl J Med 2014;370(14):6011-3866.) Cologuard may produce a false negative or [...] can be accessed at the following location: www.Qriket/results. Additional description of the Cologuard test process, warnings and precautions can be found at www.MD Synergy Solutionsrd.com. Stool specimen (specimen) 08/14/2023 9:00 AM EST 08/17/2023 1:58 PM EST us Sigrid Avilez MD LAB MOLECULAR DIAGNOSTICS ORD ERABLES Final Result [facility] [employer] (CLIA #:[id number]) [address] [place] [address], from Last 3 Months or Most Recently Relevant to Health Maintenance [place] [phone] [facility] STANDARD * Guarantor: Benny Vásquez Account Type Relation to Patient Date of Phone Billing Address Personal/Family Self [address] Care Teams Disabilities Services Officer Relationship Specialty Start Date End Date Sigrid Avilez MD [address] [place] [address] PCP - General Family Medicine 08/31/18
--- OUTSIDE RECORDS SUMMARY | 2024-12-16 15:48 | XMS_ITS | Encounter Summary ---
Author Organization [employer] Address [address] [place] [address] [address] [place] [address] Care Team Providers Care Jewelry Sales Name Role Phone Sigrid Avilez MD Primary Care Provider [phone] Reason for Visit * Reason Comments Med Change Request Encounter Details Date Type Department Care Team (Late Contact Info) Description 11/18/2022 Refill [facility] [address] [place], [place] [phone] Sigrid Avilez MD [address] [place] [address] Type 2 diabetes mellitus without complication, without long-term current use of insulin ([facility]) Social History Tobacco Use Types Packs/Day Years [...] Description 01/04/2025 9:30 AM EDT Office Visit [facility] [address] [place] [address] Sigrid Avilez MD [address] [place] [address] documented as of this encounter Visit Diagnoses Diagnosis Type 2 diabetes mellitus without complication, without long-term current use of insulin ([facility]) documented in this encounter Additional Health Concerns Assessment Noted Time PHQ-9 Depression Total Score: 0 10/15/19 23 9:23 AM EST documented as of this encounter Care Teams Jewelry Sales Relationship Specialty Start Date End Date Sigrid Avilez MD [address] [place] [address] PCP - General Family Medicine 08/31/18 documented as of this encounter
--- OUTSIDE RECORDS SUMMARY | 2024-12-16 15:49 | XMS_ITS | Encounter Summary ---
Author Organization [employer] Address [address] [facility] [address] [place] [address] Care Team Providers Care Security Site Supervisor Name Role Phone Sigrid Avilez MD Primary Care Provider [phone] Reason for Visit * Reason Onset Date Comments Walk-In 12/12/2024 Encounter Details Date Type Department Care Team ([facility] st Contact Info) Description 12/12/2024 Telephone [facility] [address] [place], [place] [phone] Sigrid Avilez MD [address] [place] [address] Walk-In Social History Tobacco Use Types Packs/Day Years [...] encounter Miscellaneous Notes * Telephone Encounter - Tisha Cote RN - 12/12/2024 9:13 AM EDT Pt walk in. service planner used. Pt states that he has pulmonary fibrosis, a cough for two weeks and has been out of both inhalers for three weeks. Pt has been taking nose spray and Xyzal for allergies and asthma since. RN made pt same day appt at 1:40. Pt verbalized understanding and states that he wants to go over his xray results and has refills for his medication. RN educated pt that he still needs to see the doctor today since he has not been feeling well. Pt verbalized understanding and agreement with the plan of care. * Telephone Encounter - Rj Lazar - 12/12/2024 8:51 AM EDT Pt walked in requesting to be seen mentions he has a cough and itchy throat for 2x weeks. Pt is in the far back of waiting area with a mask on. documented in this encounter Plan of Treatment Upcoming Encounters Date Type Department Care Team (Late st Contact Info) Description 01/04/2025 9:30 AM EDT Office Visit [facility] [address] [place] [address] Sigrid Avilez MD [address] [place] [address] documented as of this encounter Visit Diagnoses Not on filedocumented in this encounter Additional Health Concerns Assessment Noted Time PHQ-9 Depression Total Score: 0 09/28/19 25 9:18 AM EST documented as of this encounter Care Teams Security Site Supervisor Relationship Specialty Start Date End Date Sigrid Avilez MD [address] [place] [address] PCP - General Family Medicine 08/31/18 documented as of this encounter
--- OUTSIDE RECORDS SUMMARY | 2024-12-16 15:49 | XMS_ITS | Encounter Summary ---
Author Organization [employer] Address [address] [facility] 7t [place] [address] Care Team Providers Care Butcherette Name Role Phone Sigrid Avilez MD Primary Care Provider [phone] Reason for Visit * Reason Onset Date Comments Prior Authorization 11/16/2024 Encounter Details Date Type Department Care Team ([facility] st Contact Info) Description 11/16/2024 Telephone [facility] MED & PEDS [address] [place], [place] [phone] Sigrid Avilez MD [address] [place] [address] Prior Authorization Social History Tobacco Use Types Packs/Day Years [...] encounter Miscellaneous Notes * Telephone Encounter - Nanci Patel RN - 11/25/2024 3:58 PM EDT Discussed with [facility] * Telephone Encounter - Tea Frye - 11/25/2024 3:31 PM EDT Tc from [facility] requesting status of PA requested 11/11/2024 * Telephone Encounter - Eri Gallegos - 11/23/2024 11:03 AM EDT Tc from pt's daughter requesting status of prior message. * Telephone Encounter - Brigida Saravia - 11/16/2024 10:21 AM EDT Tc from Julissa at [facility] requesting status on PA requested on 11/11/24 for fluticasone-salmeterol (AirDuo RespiClick) 232-14 MCG/ACT inhaler. Julissa stated it is urgent for pt to have medication. Staffing Analyst advise will send a message high priority. documented in this encounter Plan of Treatment Upcoming Encounters Date Type Department Care Team (Late st Contact Info) Description 01/04/2025 9:30 AM EDT Office Visit [facility] MED & PEDS [address] [place] [address] Sigrid Avilez MD [address] [place] [address] documented as of this encounter Visit Diagnoses Not on filedocumented in this encounter Additional Health Concerns Assessment Noted Time PHQ-9 Depression Total Score: 0 09/28/19 25 9:18 AM EST documented as of this encounter Care Teams Butcherette Relationship Specialty Start Date End Date Sigrid Avilez MD [address] [place] [address] PCP - General Family Medicine 08/31/18 documented as of this encounter
--- OUTSIDE RECORDS SUMMARY | 2024-12-16 15:49 | XMS_ITS | Encounter Summary ---
Author Organization [employer] Address [address] [facility] [address] 7[address] [place] [address] Care Team Providers Care Balloon Dipper Name Role Phone Sigrid Avilez MD Primary Care Provider [phone] Encounter Details Date Type Department Care Team (Late st Contact Info) Description 03/25/2024 Orders Only [facility] CHC MED & PEDS [address] [place], [place] [phone] Provider, MD Ernst Social History Tobacco Use [...] 9:30 AM EDT Office Visit [facility] MED & PEDS [address] [place] [address] Sigrid Avilez MD [address] [place] [address] documented as of this encounter Procedures Procedure [...] documented as of this encounter Care Teams Balloon Dipper Relationship Specialty Start Date End Date Sigrid Avilez MD [address] [place] [address] PCP - General Family Medicine 08/31/18 documented as of this encounter
--- OUTSIDE RECORDS SUMMARY | 2024-12-16 15:49 | XMS_ITS | Encounter Summary ---
Author Organization [employer] Address [address] [facility] 7t [place] [address] Care Team Providers Care Mold Repair Technician Name Role Phone Sigrid Avilez MD Primary Care Provider [phone] Encounter Details Date Type Department Care Team (Late st Contact Info) Description 12/09/2024 Orders Only [facility] [address] [place], [place] [phone] Provider, MD Ernst Social History Tobacco Use [...] Description 01/04/2025 9:30 AM EDT Office Visit [facility] CHC MED & PEDS [address] [place] [address] Sigrid Avilez MD [address] [place] [address] documented as of this encounter Visit Diagnoses Not on filedocumented in this encounter Additional Health Concerns Assessment Noted Time PHQ-9 Depression Total Score: 0 09/28/19 25 9:18 AM EST documented as of this encounter Care Teams Mold Repair Technician Relationship Specialty Start Date End Date Sigrid Avilez MD [address] [place] [address] PCP - General Family Medicine 08/31/18 documented as of this encounter
--- OUTSIDE RECORDS SUMMARY | 2024-12-16 15:49 | XMS_ITS | Encounter Summary ---
Author Organization [email or web address] Address [address] [place] [address] 7t [place] [address] Care Team Providers Care Trust [employer] Estates Paralegal Name Role Phone Sigrid Avilez MD Primary Care Provider [phone] Reason for Visit * Reason Comments Med Refill Encounter Details Date Type Department Care Team (Late Contact Info) Description 03/02/[address] [facility] CHC MED & PEDS [address] [place] [address] Sigrid Avilez MD [address] [place] [address] Social History Tobacco Use Types Packs/Day Years [...] Description 01/04/2025 9:30 AM EDT Office Visit [facility] CHC MED & PEDS [address] [place] [address] Sigrid Avilez MD [address] [place] [address] documented as of this encounter Visit Diagnoses Not on filedocumented in this encounter Additional Health Concerns Assessment Noted Time PHQ-9 Depression Total Score: 0 10/15/19 23 9:23 AM EST documented as of this encounter Care Teams Trust And Estates Paralegal Relationship Specialty Start Date End Date Sigrid Avilez MD [address] [place] [address] PCP - General Family Medicine 08/31/18 documented as of this encounter
== END 2024-12-16 15:47 | disposition home or self-care (01) ==
LOC: HO.CT 15:46
PROVIDERS: PCP Pediatrics; Visit Provider Nurse Practitioner Family
DX: R05.3 Chronic cough (principal); J84.9 Interstitial pulmonary disease, unspecified; R93.89 Abnormal findings on diagnostic imaging of other specified body structures
CPT/HCPCS: 71250

== ENCOUNTER → 2024-12-16 15:51 | Outpatient (BNV) | payer MEDICARE, MEDICAID, SELFPAY | PROVIDERS: PCP Pediatrics; Visit Provider Radiology Diagnostic Radiology | DX: R91.8 Other nonspecific abnormal finding of lung field (principal) | CPT/HCPCS: 71250 ==

== ENCOUNTER 2025-01-24 07:50 | Outpatient (REF) | payer MEDICARE, MEDICAID, SELFPAY ==
--- OUTSIDE RECORDS SUMMARY | 2025-01-24 07:52 | XMS_ITS | Encounter Summary ---
Author Organization [employer] Address [address] [place] [address] 7 [place] [address] Care Team Providers Care Hydrology Technician Name Role Phone Sigrid Avilez MD Primary Care Provider [phone] Reason for Visit * Reason Comments Med Change Request Encounter Details Date Type Department Care Team ([facility] Contact Info) Description 11/18/2022 Refill C [facility] MED & PEDS [address] [place] [address] Sigrid Avilez MD [address] [place] [address] Type 2 diabetes mellitus without complication, without long-term current use of insulin ([facility]) Social History Tobacco Use Types Packs/Day [...] Upcoming Encounters Date Type Department Care Team ([facility] Contact Info) Description 04/06/2025 9:15 AM EDT Office Visit [facility] CHC MED & PEDS [address] [place] [address] Sigrid Avilez MD [address] [place] [address] documented as of this encounter Visit Diagnoses Diagnosis Type 2 diabetes mellitus without complication, without long-term current use of insulin ([facility]) documented in this encounter Additional Health Concerns Assessment Noted Time PHQ-9 Depression Total Score: 0 10/15/19 23 9:23 AM EST documented as of this encounter Care Teams Hydrology Technician Relationship Specialty Start Date End Date Sigrid Avilez MD [address] [place] [address] PCP - General Family Medicine 08/31/18 documented as of this encounter
--- NOTE | 2025-01-24 08:28 | PFT_ITS ---
Indication ILD Spirometry [FEV1 to FVC 87%; FEV1 1.7 L; FVC 1.95 L. No significant response to bronchodilators noted.] Lung Volumes [Total lung capacity 54% predicted] Diffusion Capacity DLCO 34% predicted Flow Volume Loops [Restrictive pattern] Comparisons [none] Interpretation [No obstructive ventilatory defects. No significant response to bronchodilators noted. The patient does have a moderate restrictive ventilatory defect consistent with his interstitial lung disease. In addition to that there is a severe diffusion impairment. No comparisons available will be helpful to compare. Clinical correlation warranted.] MTDD
[2025-01-24 08:32] VITALS: PULSE 73; O2SAT 98
== END 2025-01-24 07:51 | disposition home or self-care (01) ==
LOC: HO.RESP 07:50
PROVIDERS: PCP Pediatrics; Visit Provider Nurse Practitioner Family
DX: R05.3 Chronic cough (principal); J84.9 Interstitial pulmonary disease, unspecified
CPT/HCPCS: 94010; 94640; 94727; 94729

== ENCOUNTER → 2025-01-24 08:28 | Outpatient (BNV) | payer MEDICARE, MEDICAID, SELFPAY | PROVIDERS: PCP Pediatrics; Visit Provider Hospitalist | DX: J84.9 Interstitial pulmonary disease, unspecified (principal) | CPT/HCPCS: 94060; 94727; 94729 ==

== ENCOUNTER 2025-02-20 13:49 | Outpatient (AMB) | payer MEDICARE, MEDICAID, SELFPAY ==
[2025-02-20 13:56] VITALS: BP 140/56; PULSE 69; O2SAT 97; BMI 23.8
--- NOTE | 2025-02-20 13:56 | A.OFFVIS_ITS ---
Vital Signs 02/20/25 13:56 Height 5 ft 2 in Weight 130 lb 1.164 oz BMI 23.8 BP 140/56 H Blood Pressure Location Rt brachial Position Sitting Pulse 69 Pulse Source Pulse Oximeter Pulse Oximetry (%) 97 Oxygen Delivery Method Room Air Intake Visit Reasons: ILD Stock Room Manager Required: Yes Stock Room Manager Language: Japanese Interpreter Services: Stock Room Manager Present Stock Room Manager Name: Lulu Salinas LM Allergies aspirin (ASPIRIN) Allergy (Intermediate, Unverified 02/20/25 14:00) SWELLING HPI HPI ILD: Details: Benny is a pleasant 69 year old male, former 50 pack year smoker, quit 4 years ago, with underlying h/o pulmonary fibrosis, DMII, HTN, HLD and PVD. He reports being dx with pulmonary fibrosis years ago, and was under the care of pulmonary through [facility] however lost to follow up. He reports having biopsy suggestive of UIP and offered Ofev for pulmonary fibrosis, however not financially feasible as well as potential side effects. He denies prior workup of CTD. Reviewed records however last PFT not attached or CT images. At the last visit, he was switched to Trelegy with notable improvement in symptoms. He currently denies any respiratory symptoms. Today he presents to review PFT and chest CT results. [facility] Social History (Updated 02/20/25 @ 13:59 by Lulu Brown [facility]) Patient Tobacco Use Status: Former Tobacco user Cigarette Packs Per Day: 1 Years Smoked: 50 Quit 2020 Review of Systems Const Denies chills, Denies excessive sweating, Denies fever(s), Denies headache(s) and Denies night sweats Eyes Denies dry eyes, Denies irritation and Denies itchy eyes ENT Reports Normal hearing present, Denies headache(s), Denies nasal congestion, Denies nasal discharge and Denies sore throat Card Denies chest pain, Denies chest pain at rest, Denies chest pain with activity, Denies claudication, Denies leg edema, Denies orthopnea and Denies paroxysmal nocturnal dyspnea Resp Denies chest congestion, Denies excessive phlegm production, Denies pain on inspiration, Denies pain with cough, Denies stridor and Denies wheezing Musc Denies myalgias Neuro Reports Normal hearing present and Denies headache(s) Endo Denies excessive sweating Enrique/Lymph Denies lymphadenopathy Aller/Immun Denies itchy eyes, Denies seasonal rhinorrhea and Denies wheezing Physical Exam Vital Signs: Last Vital Signs Pulse 69 02/20/25 13:56 BP 140/56 H 02/20/25 13:56 Pulse Ox 97 02/20/25 13:56 Oxygen Delivery Method Room Air 02/20/25 13:56 BMI result Body Mass Index 23.8 Const General: cooperative, healthy appearing, comfortable, no acute distress, well developed and alert Orientation/consciousness: patient oriented x3 Limitations: no limitations HEENT Head: Yes normal to inspection, Yes normocephalic and Yes atraumatic Ears: hearing grossly normal bilaterally and external ears normal Eyes General: appearance normal, both eyes and all related structures Eyelids: Yes eyelids normal Sclerae: sclerae normal EOM: EOMs intact bilaterally Neck Neck: Yes normal visual inspection and Yes no lymphadenopathy Lymphatic: no lymphadenopathy noted Chest Chest palpation & inspection: normal inspection of the chest Resp Other: inspiratory bibasilar crackles Effort & Inspection: normal respiratory effort, able to speak in complete sen tences, no audible wheezes, no cough, no stridor, not tachypneic, no tripod positioning and no use of accessory muscles Cardio Jugular venous distension: no JVD Rate: regular rate Rhythm: regular rhythm Skin Other: warm, dry General skin exam: no rashes or lesions noted Neuro General: patient oriented x3 Cranial nerves: Yes Normal hearing present Cognition (Neuro): normal cognition Gait exam (Neuro): Normal gait present Extrem General: Yes normal to inspection, Yes capillary refill normal, Yes no clubbing, cyanosis or edema and Yes no pedal edema Psych Appearance: grossly normal and well kempt Speech and movement: Normal speech and movement present and Clear speech present Affect: normal affect Attitude: cooperative Thought process: Normal thought process present Thought content: Normal thought content present Insight: Good insight present (Psych) Judgement: Good judgement present (Psych) Office Procedures 6 Minute Walk Time:: 14:23 SPO2 % at rest: 98 Pulse at rest: 74 SPO2 % during excercise: 93 Pulse during excercise: 89 SPO2 % after excercise: 94 Pulse after excercise: 82 Distance in yards walked: 250 Shirley Score: 5 Performance Observations:: Patient walked unassisted on level ground at a moderate pace. Maintained O2 saturation of 93% or greater for the entire walk and pulse of 89 or less. Denies shortness of breath and did not require the use of supplemental oxygen. [address] - 6 Minute Walk Assessment & Plan Assessment & Plan (1) Interstitial lung disease: Code(s): J84.9 - Interstitial pulmonary disease, unspecified Category: Medical (2) Chronic cough: Code(s): R05.3 - Chronic cough Category: Medical (3) Personal history of tobacco use: Code(s): Z87.891 - Personal history of nicotine dependence Category: Social Hx (4) Abnormal chest xray: Code(s): R93.89 - Abnormal findings on diagnostic imaging of other specified body structures Category: Medical Plan At this time Benny reports good control of respiratory symptoms using Trelegy and albuterol MDI, advised to continue. He is aware to call if symptoms worsen. Reviewed PFT which did not reveal any obstructive defect, however moderate to severe restrictive defect with DLCO 34%. 6MWT performed today and patient does not require supplemental oxygen. Reviewed chest CT which revealed extensive bibasilar honeycombing. Prior biopsy suggestive of UIP, will send for CTD workup as this reportedly has not been performed. Will send repeat PFT and chest CT in 6 months to assess progression of ILD, as patient would like to defer any antifibrotic agents at this time. All questions were answered and patient is in agreement of plan. Will follow up in three months or sooner if needed. Orders: Orders Anti DNA DS Antibody Today J84.9 - Interstitial pulmonary disease, unspecified NENA Reflex Titer and Pattern Today J84.9 - Interstitial pulmonary disease, unspecified Cyclic Citrullinated Peptide Today J84.9 - Interstitial pulmonary disease, unspecified Scleroderma 70 Antibody Today J84.9 - Interstitial pulmonary disease, unspecified Sjogren's Antibodies Today J84.9 - Interstitial pulmonary disease, unspecified Rheumatoid Factor Today J84.9 - Interstitial pulmonary disease, unspecified AMB 6 minute walk Today J84.9 - Interstitial pulmonary disease, unspecified Hypersensitive Pneumonitis Prf Today J84.9 - Interstitial pulmonary disease, unspecified Coding Level of Care Code Est Pt Level 4 (61435) Complex EM visit Add On G2211 Diagnoses Interstitial lung disease J84.9 Chronic cough R05.3 Personal history of tobacco use Z87.891 Abnormal chest xray R93.89 CPT Codes Coding ([id number])
[2025-02-20 14:36] VITALS: PULSE 74; O2SAT 98
== END 2025-02-20 14:39 | disposition home or self-care (01) ==
LOC: HO.HPS 13:49
PROVIDERS: PCP Pediatrics; Visit Provider Nurse Practitioner Family
DX: J84.9 Interstitial pulmonary disease, unspecified (principal); R05.3 Chronic cough; Z87.891 Personal history of nicotine dependence; R93.89 Abnormal findings on diagnostic imaging of other specified body structures
CPT/HCPCS: 94618; 99214; G2211

== ENCOUNTER → 2025-02-20 13:49 | Outpatient (BNVA) | payer MEDICARE, MEDICAID, SELFPAY | PROVIDERS: PCP Pediatrics; Visit Provider Nurse Practitioner Family | DX: J84.9 Interstitial pulmonary disease, unspecified (principal); R93.89 Abnormal findings on diagnostic imaging of other specified body structures; R05.3 Chronic cough; Z87.891 Personal history of nicotine dependence | CPT/HCPCS: 94618; 99212 ==

== ENCOUNTER 2025-04-06 10:02 | Outpatient (REF) | payer OTHER, SELFPAY ==
--- OUTSIDE RECORDS SUMMARY | 2025-04-06 10:33 | XMS_ITS | Encounter Summary ---
Author Organization [employer] Address [address] [place] [address] 7t [place] [address] Care Team Providers Care Payroll Processor Name Role Phone Sigrid Avilez MD Primary Care Provider Reason for Visit * Reason Comments Med Change Request Encounter Details Date Type Department Care Team (Late Contact Info) Description 11/18/2022 Refill C [facility] MED [facility] PEDS [address] [place], [place] [phone] Sigrid Avilez MD [address] [place] [address] Type 2 diabetes mellitus without complication, without long-term current use of insulin ([facility]) Social History Tobacco Use Types Packs/Day Years [...] Department Care Team (Late Contact Info) Description 07/03/2025 9:00 AM EST Office Visit [facility] OPTOMETRY [address] [place] [address] Amandeepnupur Trini, OD [address] [place] [address] documented as of this encounter Visit Diagnoses Diagnosis Type 2 diabetes mellitus without complication, without long-term current use of insulin ([facility]) documented in this encounter Additional Health Concerns Assessment Noted Time PHQ-9 Depression Total Score: 0 10/15/19 23 9:23 AM EST documented as of this encounter Care Teams Payroll Processor Relationship Specialty Start Date End Date Sigrid Avilez MD [address] [place] [address] PCP - General Family Medicine 08/31/18 documented as of this encounter
[2025-04-06 14:09] LABS: Appearance Urine Clear; Glucose Urine UA Negative (Negative); PH 5.0 (5.0-9.0); Specific Gravity - Urine 1.020 (1.005-1.025)
[2025-04-06 14:12] LABS: MANUAL DIFF FLAG NO
[2025-04-06 14:16] LABS: Hematocrit 43.4 % (42.0-52.0); Hemoglobin 13.9 g/dl (14.0-18.0); Imm Gran Abs Auto 0.05 X10*3/uL (0.00-0.03); Imm Gran Pct Auto 0.5 % (0.0-0.4); Lymphocytes Absolute Auto 2.4 X10*3/uL (1.2-4.9); Mean Corpuscular HGB Conc 32.0 g/dl (31.0-36.0); Mean Corpuscular Hemoglobin 29.4 pg (27.0-33.0); Mean Corpuscular Volume 91.8 fL (80.0-98.0); NRBC Abs Auto 0.000 X10*3/uL (0.0-0.012); NRBC Pct Auto 0.0 /100WBC (0.0-0.2); Platelet Count 252 X10*3/uL (160-400); Red Blood Count 4.73 X10*6/uL (4.60-5.80); White Blood Count 11.1 X10*3/uL (4.8-10.8)
[2025-04-06 14:28] LABS: Alanine Aminotransferase 18 U/L (0-40); Albumin Level 3.7 g/dL (3.5-5.0); Alkaline Phosphatase 85 U/L (39-117); Anion Gap 11 (12-20); Aspartate Amino Transferase 24 U/L (5-37); Blood Urea Nitrogen 12 mg/dL (9-16); Calcium 8.9 mg/dL (8.4-10.2); Carbon Dioxide 29 mmol/L (22-29); Chloride 104 mmol/L (96-108); Estimated Glomerular Filt Rate > 60; Lipase 14 U/L (8-78); Potassium 4.2 mmol/L (3.3-5.1); Sodium 140 mmol/L (135-145); Total Protein 7.5 g/dL (6.5-8.0)
[2025-04-07 22:17] LABS: Antibody to SS-A Antigen <1.0 NEG AI (<1.0 NEG); Antibody to SS-B Antigen <1.0 NEG AI (<1.0 NEG)
[2025-04-08 13:13] LABS: Anti Nuclear Antibody Screen NEGATIVE (NEGATIVE)
[2025-04-12 14:48] LABS: Asperg fumigatus Precip Abs NEGATIVE (NEGATIVE); Micropoly faeni Abs NEGATIVE (NEGATIVE); Saccharo pora viridis Abs NEGATIVE (NEGATIVE); Thermo candidus Abs NEGATIVE (NEGATIVE)
== END 2025-04-06 10:03 | disposition home or self-care (01) ==
LOC: HO.CHCLDS 10:02
PROVIDERS: Absent Provider Nurse Practitioner Family; PCP Pediatrics; Visit Provider Pediatrics
DX: Z01.84 Encounter for antibody response examination (principal); R10.31 Right lower quadrant pain; J84.9 Interstitial pulmonary disease, unspecified; E11.51 Type 2 diabetes mellitus with diabetic peripheral angiopathy without gangrene
CPT/HCPCS: 36415; 80053; 81001; 83690; 85025; 86038; 86200; 86225; 86235; 86331; 86431; 86606; 86609

== ENCOUNTER 2025-05-22 06:56 | Outpatient (REF) | payer OTHER, SELFPAY ==
--- NOTE | ~2025-05-22 | CT_ITS ---
EXAMINATION: CT ABDOMEN AND PELVIS WITH CONTRAST CLINICAL INFORMATION: Recurrent abdominal pain COMPARISON: 09/24/2015 TECHNIQUE: Multidetector volumetric images were obtained from the superior aspect of the liver through the pubic symphysis following administration 85 mL of Omnipaque 350 intravenous contrast. Sagittal and coronal reformatted images were obtained on the technologist's workstation. Oral contrast: [address] examination was performed using dose optimization techniques as appropriate, variously including the following: *Automated exposure control *Adjustment of mA and/or kV according to patient size (this includes techniques or standardized protocols for targeted exams where dose is matched to indication/reason for exam; i.e. extremities or head) *Use of iterative reconstruction technique FINDINGS: LUNG BASES: Lung bases demonstrate honeycombing, right greater than left side. There is also mild bronchiectasis and patchy groundglass densities with interlobular septal thickening. This is increased since the prior. LIVER, GALLBLADDER, AND BILIARY TREE: There is chronic coarse calcification in the dome of the liver. Gallbladder surgically absent. There are clips in the gallbladder fossa. PANCREAS: Unremarkable. SPLEEN: Unremarkable. ADRENAL GLANDS: Unremarkable. KIDNEYS AND URETERS: There is pelvocaliectasis. There are no stones. No other abnormalities are noted. BLADDER: The bladder is incompletely distended. It demonstrates mild thickening of the wall anteriorly more than posteriorly. GASTROINTESTINAL TRACT: There is moderate stool throughout the colon. The appendix is within normal limits. There are a few pseudodiverticula at the junction of descending and sigmoid colon without inflammatory changes. ABDOMINAL WALL: No significant hernia is appreciated. LYMPH NODES: Normal. VASCULAR: Moderate atherosclerotic calcification is present PELVIC VISCERA: Unremarkable. OSSEOUS STRUCTURES: There are flowing osteophytes or syndesmophytes in the lower thoracic spine. Mild degenerative changes are present in the lumbar spine. There are moderate-sized osteophytes involving acetabular roofs. There is bony fusion across the SI joints bilaterally. CT/CT abdomen pelvis w IV con IMPRESSION: There is no gallbladder wall thickening raising question of cystitis. Focal area of diverticulosis involving junction of descending and sigmoid colon without evidence of acute inflammation. Suspected syndesmophytes in the lower thoracic spine and fusion of SI joints raises suspicion of ankylosing spondylitis. Fleischner guidelines were followed. Electronically signed by: Julio Bernard MD 05/22/2025 10:19 AM EDT RP
--- OUTSIDE RECORDS SUMMARY | 2025-05-22 06:59 | XMS_ITS | Encounter Summary ---
Author Organization [employer] Address [address] [facility] 7t [place] [address] Care Team Providers Care Configuration Management Advisor Name Role Phone Sigrid Avilez MD Primary Care Provider [phone] Reason for Visit * Reason Comments Med Refill Encounter Details Date Type Department Care Team ([facility] st Contact Info) Description 03/29/[address] [facility] CHC MED & PEDS [address] [place], [place] [phone] Sigrid Avilez MD [address] [place] [address] Social History Tobacco Use Types Packs/Day Years [...] Care Team (Late st Contact Info) Description 07/03/2025 9:00 AM EST Office Visit [facility] OPTOMETRY [address] [place] [address] Trini Smith, OD [address] [place] [address] documented as of this encounter Visit Diagnoses Not on filedocumented in this encounter Additional Health Concerns Assessment Noted Time PHQ-9 Depression Total Score: 0 09/28/19 25 9:18 AM EST documented as of this encounter Care Teams Configuration Management Advisor Relationship Specialty Start Date End Date Sigrid Avilez MD [address] [place] [address] PCP - General Family Medicine 08/31/18 documented as of this encounter
--- OUTSIDE RECORDS SUMMARY | 2025-05-22 06:59 | XMS_ITS | Encounter Summary ---
Author Organization [employer] Address [address] [facility] 7t [place] [address] Care Team Providers Care Hydraulic Technician Name Role Phone Sigrid Avilez MD Primary Care Provider [phone] Reason for Visit * Reason Comments Med Refill Encounter Details Date Type Department Care Team ([facility] st Contact Info) Description 03/29/2025 Refill [facility] CHC MED & PEDS [address] [place], [place] [phone] Sigrid Avilez MD [address] [place] [address] Social History Tobacco Use Types Packs/Day Years [...] Description 07/03/2025 9:00 AM EST Office Visit [facility] OPTOMETRY [address] [place] [address] Trini Smith, OD [address] [place] [address] documented as of this encounter Visit Diagnoses Not on filedocumented in this encounter Additional Health Concerns Assessment Noted Time PHQ-9 Depression Total Score: 0 09/28/19 25 9:18 AM EST documented as of this encounter Care Teams Hydraulic Technician Relationship Specialty Start Date End Date Sigrid Avilez MD [address] [place] [address] PCP - General Family Medicine 08/31/18 documented as of this encounter
--- OUTSIDE RECORDS SUMMARY | 2025-05-22 06:59 | XMS_ITS | Encounter Summary ---
Author Organization [employer] Address [address] [facility] 7t [place] [address] Care Team Providers Care Spectrographer Name Role Phone Sigrid Avilez MD Primary Care Provider [phone] Encounter Details Date Type Department Care Team (Late Contact Info) Description 11/20/2022 Telephone [facility] MEDICINE [address] [place], [place] [phone] Sigrid Avilez MD [address] [facility] [address] [place], [place] [phone] Social History Tobacco Use Types Packs/Day Years [...] Upcoming Encounters Date Type Department Care Team ([facility] Contact Info) Description 07/03/2025 9:00 AM EST Office Visit [facility] OPTOMETRY [address] [place], [place] [phone] Trini Smith, OD [address] [place] [address] documented as of this encounter Visit Diagnoses Not on filedocumented in this encounter Additional Health Concerns Assessment Noted Time PHQ-9 Depression Total Score: 0 10/15/19 23 9:23 AM EST documented as of this encounter Care Teams Spectrographer Relationship Specialty Start Date End Date Sigrid Avilez MD [address] [place] [address] PCP - General Family Medicine 08/31/18 documented as of this encounter
--- OUTSIDE RECORDS SUMMARY | 2025-05-22 06:59 | XMS_ITS | Clinical Summary ---
Author Organization [employer] Address [address] [facility] 7[address] [place] [address] Care Team Providers Care Carbon [employer] Co[employer] Supervisor Name Role Phone Sigrid Avilez MD Primary Care Provider [phone] Allergies Active Allergy Reactions Criticality Noted Date Comments Aspirin Unknown,Rash Low 04/16/2012 Simvastatin Diarrhea 06/23/2024 Medications Cyanocobalamin 1000 MCG capsule Take 1 capsule by mouth in the morning. 021 Active ergocalciferol (Vitamin D-2) 1.25 MG (66416 UT) capsule Take 1 capsule by mouth 1 (one) time per week. 022 Active omega-3 (Fish Oil) 1000 MG capsuleIndicati ons:Newly diagnosed diabetes (CMS/HCC) Take 1 capsule orally bid 180 capsule 3 023 Active albuterol (Proventil HFA) 108 (90 Base) MCG/ACT inhalerIndicati ons:Cough present for greater than 3 weeks Inhale 2 puffs every 4 (four) hours. 18 g 1 023 Active cetirizine (ZyrTEC) 10 MG tablet TOME LANDON TABLETA TODOS LOS GUZMAN 90 tablet 3 023 Active acetaminophen (Tylenol) 500 MG tablet Take 2 tablets by mouth if needed each day. OTC Active Lancets (OneTouch Delica Plus [id number]) misc Check sugars twice a day 100 each 11 023 Active triamcinolone (Kenalog) 0.1 % creamIndication s:Rash Apply topically if needed in the morning and at bedtime (pain and swelling). 30 g 023 Active Lancets (OneTouch Delica Plus Duljiu16N) misc CHECK BLOOD SUGAR TWO TIMES A DAY 100 each 11 023 Active albuterol 108 (90 Base) MCG/ACT inhalerIndicati ons:Chronic cough INHALE 2 PUFFS EVERY 6 HOURS IF NEEDED FOR WHEEZING. 18 g 2 024 Active dulaglutide (Trulicity) 0.75 MG/0.5ML solution pen-injector INJECT POR VIA SUBCUTANEA 0.75 MG UNDER THE SKIN 1 TIME PER WEEK. 0.5 mL 11 024 Active Lancets (OneTouch Delica Plus Veugpr08I) miscIndications :Diabetes mellitus without complication ([facility]) USE TO CHECK BLOOD SUGAR ONCE DAILY 100 each 024 Active losartan (Cozaar) 25 MG tablet Take 1 tablet (25 mg) by mouth Once per day. 90 tablet 3 025 Active albuterol (Ventolin HFA) 108 (90 Base) MCG/ACT inhaler Inhale 2 puffs every 6 (six) hours if needed for wheezing. 18 g 025 2025 Active fluticasone-jewels meterol (AirDuo RespiClick) 232-14 MCG/ACT inhalerIndicati ons:Tobacco dependence syndrome Inhale 1 puff 2 times daily. Rinse mouth with water after use to reduce aftertaste and incidence of candidiasis. Do not swallow. 1 each 025 2025 Active predniSONE (Deltasone) 20 MG tablet Take 2 tabs orally daily for 4 days, then 1 tab daily for 6 days 14 tablet Active azithromycin (Zithromax) 250 MG tablet Take 2 tabs orally on day 1 then 1 tab orally daily for 4 more days 6 tablet Active levoFLOXacin (Levaquin) 750 MG tablet Take 1 tab orally daily 10 tablet 025 Active Misc. Devices (Pulse Oximeter) miscIndications :ILD (interstitial lung disease) ([facility]) Use to check pulse ox prn 1 each 025 Active albuterol (2.5 MG/3ML) 0.083% nebulizer solutionIndicat ions:ILD (interstitial lung disease) ([facility]) Take 3 mL (2.5 mg) by nebulization every 6 (six) hours if needed for wheezing. 75 mL 025 2025 Active fluticasone-jewels meterol (Advair) 230-21 MCG/ACT inhaler Inhale 2 puffs in the morning and at bedtime. Rinse mouth with water after use to reduce aftertaste and incidence of candidiasis. Do not swallow. 12 g 11 025 2025 Active rosuvastatin (Crestor) 40 MG tabletIndicatio ns:Newly diagnosed diabetes ([facility]) TAKE ONE TABLET BY MOUTH EVERY DAY AT BEDTIME 90 tablet 2 Active pantoprazole (ProtoNix) 20 MG EC tabletIndicatio ns:Newly diagnosed diabetes ([facility]) Take 1 tab orally daily 90 tablet 3 Active azelastine (Astelin) 0.1 % nasal spray Administer 1 spray into each nostril 2 times daily. Use in each nostril as directed 30 mL 025 2025 Active levocetirizine (Xyzal) 5 MG tablet Use 1 tab orally daily 30 tablet Active Lancets (OneTouch Delica Plus Usnoso04L) misc CHECK BLOOD SUGAR TWO TIMES A DAY 100 each Active amLODIPine (Norvasc) 10 MG tablet TAKE ONE TABLET BY MOUTH EVERY DAY 90 tablet 1 Active Trulicity 0.75 MG/0.5ML solution auto-injector INJECT 0.75MG UNDER THE SKIN ONCE A WEEK 2 mL 3 025 Active OneTouch Ultra Test test stripIndication s:Diabetes mellitus without complication ([facility]) USE TO CHECK BLOOD SUGAR TWO TIMES A DAY 100 strip 11 025 Active OneTouch Ultra Test test stripIndication s:Diabetes mellitus without complication ([facility]) USE TO CHECK BLOOD SUGAR TWO TIMES A DAY 100 strip 11 024 2024 Discontinued(R eorder (will not trigger notification to [...] Encounters Date Type Department Care Team Description 04/27/2025 Orders Only [facility]S [address] [place] [address] Sigrid Avilez MD RLQ abdominal pain (Primary Dx) 04/27/2025 Telephone [employer] [address] [place] [address] [phone] Sigrid Avile[address] MD [address] order 04/26/2025 Telephone [facility] MED & PEDS [address] [place], [place] [phone] Sigrid Avilez MD Nurse Triage 04/22/2025 Refill [facility]EDS [address] [place] [address] Sigrid Avilez MD Diabetes mellitus without complication ([facility]) 04/06/2025 9:15 AM EDT Office Visit [facility] [address] [place] [address] Sigrid Avilez MD 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, without long-term current use of insulin ([facility]) (Primary Dx); RLQ abdominal pain; ILD (interstitial lung disease) ([facility]/HCC); Type 2 diabetes mellitus with hyperglycemia, without long-term current use of insulin ([facility]) 04/06/2025 Orders Only GENERIC EXTERNAL DATA DEPARTMENT Provider, Generic External Data 04/06/2025 Travel 04/04/2025 Telephone [facility] MED [facility] PED[facility] [address] [place] [address] Sigrid Avilez MD Chart Prep 03/31/2025 Telephone [facility] [address] [place] [address] Sigrid Avilez MD Prior Authorization 03/30/2025 Refill [facility] [address] [place] [address] Sigrid Avilez MD 03/29/2025 Telephone [facility] [address] [place] [address] Sigrid Avilez MD Med Refill 03/29/2025 Refill [facility] [address] [place] [address] Sigrid Avilez MD 03/29/2025 Refill [facility] [address] [place] [address] Sigrid Avilez MD 03/17/2025 Refill [facility] [address] [place] [address] Sigrid Avilez MD from Last 3 Months Immunizations Immunization Administration Dates Next Due Influenza High-dose Quadriva [...] Sign Reading Time Taken Comments Blood Pressure 144/64 04/06/2025 9:09 AM EDT Pulse 67 04/06/2025 9:09 AM EDT Temperature 36.5 C (97.7 F) 04/06/2025 9:09 AM EDT Respiratory Rate 16 04/06/2025 9:09 AM EDT Oxygen Saturation 99% 01/04/2025 9:11 AM EDT Inhaled Oxygen Concentration - - Weight 58.5 kg (129 lb) 04/06/2025 9:09 AM EDT Height 157.5 cm (5' 2 ) 01/04/2025 9:11 AM EDT Body Mass Index 23.59 01/04/2025 9:11 AM EDT Plan of Treatment Upcoming Encounters Date Type Department Care Team (Late st Contact Info) Description 07/03/2025 9:00 AM EST Office Visit [facility] OPTOMETRY [address] [place] [address] Trini Smith, OD [address] [place] [address] Health Maintenance Due Date Last Done Comments CT Colonography 1955 Colonoscopy 1955 FIT 1955 Sigmoidoscopy 1955 Hepatitis C Screening 1973 RSV Patients and Patients Aged 60 years or older (1 - Risk 60-74 years 1-dose series) 2015 FOBT 08/14/2024 08/14/2023 Lipid Panel 03/28/2025 03/28/2024, 12/05/2022, 11/27/2021 COVID-19 Vaccine ( season) 2025 09/28/2024, 07/18/2021, 11/23/2020, Additional history exists Influenza Vaccine (#1) 2025 , 07/09/2023, 08/08/2022, Additional history exists Diabetes: Hemoglobin A1C 07/07/2025 025, 01/04/2025, 09/28/2024, Additional history exists Alcohol/Substance Use Screening 09/28/2025 09/28/2024 Depression Screening 09/28/2025 09/28/2024, 09/28/19 Diabetes: Urine Protein Screening 09/28/2025 09/28/2024, 11/27/2021, 10/11/2019 SDOH Screening 09/28/2025 09/28/2024 Diabetes: Foot Exam 04/06/2026 04/06/2025, 04/06/2025, 04/06/2025, Additional history exists Tobacco Screening 04/06/2026 04/06/2025 Eye Exam 06/23/2026 06/23/2024, 06/01, 06/23/2024, Additional history exists DTaP/Tdap/Td Vaccines (3 - Td or Tdap) 06/25/2026 06/25/2016, 07/13/1997 Colorectal Cancer Screening 08/14/2026 FIT DNA/Cologuard 08/14/2026 08/14/2023 Zoster Vaccines Completed 09/15/2023, 07/09/2023 Pneumococcal Vaccine: 50+ Years Completed 03/24/2024, 09/12/1996 HIB Vaccines Aged Out No longer eligi [...] patient's age to complete this topic Meningococcal B Vaccine Aged Out No l onger eligible based on patient's age to complete [...] Procedure Name Priority Date/Time Associated Diagnosis Comments URINALYSIS, COMPLETE Routine 04/06/2025 10:11 AM EDT 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, without long-term current use of insulin ([facility]) RLQ abdominal pain CYCLIC CITRULLINATED PEPTIDE (CCP) AB (IGG) Routine 04/06/2025 10:07 AM EDT HYPERSENSITIVITY PNUEMONITIS PROFILE Routine 04/06/2025 10:07 AM EDT NENA SCREEN, IFA, W/REFL TITER AND PATTERN Routine 04/06/2025 10:07 AM EDT DNA (DS) ANTIBODY Routine 04/06/2025 10: 07 AM EDT SCL-70 ANTIBODY Routine 04/06/2025 10:07 AM EDT SJOGREN'S ANTIBODIES (SS-A,SS-B) Routine 04/06/2025 10:07 AM EDT RHEUMATOID FACTOR Routine 04/06/2025 10: 07 AM EDT LIPASE Routine 04/06/2025 10:07 AM EDT 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, without long-term current use of insulin ([facility]) RLQ abdominal pain CBC WITH AUTO DIFFERENTIAL Routine 04/06/2025 10:07 AM EDT 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, without long-term current use of insulin ([facility]) RLQ abdominal pain COMPREHENSIVE METABOLIC PANEL Routine 04/06/2025 10:07 AM EDT 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, without long-term current use of insulin ([facility]) RLQ abdominal pain POCT GLYCATED HEMOGLOBIN, TOTAL Routine 04/06/2025 10:01 AM EDT 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, without long-term current use of insulin ([facility]/HCC) POCT GLUCOSE Routine 04/06/2025 10:00 AM EDT 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, without long-term current use of insulin (CMS/HCC) ALBUMIN, RANDOM URINE W/CREATININE Routine 09/28/2024 10:16 AM EST Encounter for immunization Diabetes mellitus without complication (CMS/HCC) LIPID PANEL, STANDARD Routine 03/28/2024 9:15 AM EDT Diabetes mellitus without complication (CMS/HCC) LAB COLOGUARD COLON CANCER SCREEN Routine 08/14/2023 9:00 AM EST Colon cancer screening from Last 3 Months or Most Recently Relevant to Health Maintenance Results * Urinalysis Complete (04/06/2025 10:11 AM EDT) Color Urine Yellow [facility] Appearance Urine Clear [facility] PH 5.0 5.0 - 9.0 [facility] Glucose Urine UA Negative Negative mg/dL [facility] Urine Blood Negative Negative [facility] Specific [place] - Urine 1.020 1.005 - 1.025 [facility] Urine Protein Negative Neg-Trace mg/dL [facility] Urine Ketones Negative Negative mg/dL [facility] Nitrite Urine Negative Negative [facility] Leukocyte Esterase Urine Negative Negative [facility] RBC Urine 0-2 0 - 2 /HPF [facility] Urine WBC 0-5 0 - 5 /HPF [facility] Urine Squamous Epithelial Cell 0-2 0 - 2 /HPF [facility] Urine Bacteria None Seen None Seen [facility] Hyaline Casts, Urine 0-2 0 - 2 /LPF [facility] Urine (Urine, Random) 04/06/2025 10:11 AM EDT 04/06/2025 2:04 PM EDT us Sigrid Avilez MD LAB URINE ORDERABLES Final Re sult Performing Organization Address [facility] Co de Phone Number [facility] [address] [place] [phone] * Sjogren's Antibodies (SS-A,SS-B) (04/06/2025 10:07 AM EDT) Sjogren's Antibody (SS-A) <1.0 NEG <1.0 NEG [facility] Sjogren's Antibody (SS-B) <1.0 NEG <1.0 NEG [facility] Comment:THIS TEST WAS PERFOR MED AT:[employer] [place] [phone] JIMENEZ MD 04/06/2025 10:0 7 AM EDT 04/06/2025 2:08 PM EDT us Generic External Data Provider LAB BLOOD ORDERAB LES Final Result Performing Organization Address [facility] Co de Phone Number [facility] [address] [place] [phone] * (ABNORMAL) CBC auto differential (04/06/2025 10:07 AM EDT) White Blood Count 11.1(H) 4.8 - 10.8 X10*3/uL [facility] Red Blood Count 4.73 4.60 - 5.80 X10*6/uL [facility] Hemoglobin 13.9(L) 14.0 - 18.0 g/dl [facility] Hematocrit 43.4 42.0 - 52.0 % [facility] Mean Corpuscular Volume 91.8 80.0 - 98.0 fL [facility] Mean Corpuscular Hemoglobin 29.4 27.0 - 33.0 pg [facility] Mean Corpuscular HGB Conc 32.0 31.0 - 36.0 g/dl [facility] Red Cell Distribution Width 13.6 11.0 - 16.0 % [facility] Platelet Count 252 160 - 400 X10*3/uL [facility] Mean Platelet Volume 11.4 9.4 - 12.4 fL [facility] Neutrophils Percent Auto 65.8 45 - 73 % [facility] Imm Gran Pct Auto 0.5(H) 0.0 - 0.4 % [facility] Lymphocytes Percent Auto 21.5 20 - 40 % [facility] Monocytes Percent Auto 7.8 2 - 11 % [facility] Eosinophils Percent Auto 4.0 0 - 4 % [facility] Basophils Percent Auto 0.4 0 - 2 % [facility] NRBC Pct Auto 0.0 0.0 - 0.2 /100WBC [facility] Neutrophils Absolute Auto 7.3 2.0 - 8.3 x10*3/uL [facility] Imm Gran Abs Auto 0.05(H) 0.00 - 0.03 X10*3/uL [facility] Lymphocytes Absolute Auto 2.4 1.2 - 4.9 X10*3/uL [facility] Monocytes Absolute Auto 0.9 0.1 - 1.2 X10*3/uL [facility] Eosinophils Absolute Auto 0.4 0.0 - 0.4 X10*3/uL [facility] Basophils Absolute Auto 0.0 0.0 - 0.2 X10*3/uL [facility] NRBC Abs Auto 0.000 0.0 - 0.012 X10*3/uL [facility] Blood Venous blood specimen / Unknown 04/06/2025 10:07 AM EDT 04/06/2025 2:08 PM EDT us Sigrid Avilez MD LAB BLOOD ORDERABLES Final Re sult [facility] [address] [place] [phone] * Cyclic Citrullinated Peptide (CCP) Antibody (IgG) (04/06/2025 10:07 AM EDT) Cyclic Citrullinated Peptide <16 UNITS [facility] Comment:Reference RangeNegat faith: <20Weak Positive: 20-39Moderate Positive: 40-59Strong Positive: >59THIS TEST WAS PERFORMED AT:[employer] [address] [phone] JIMENEZ MD 04/06/2025 10:0 7 AM EDT 04/06/2025 2:08 PM EDT Generic External Data Provider LAB BLOOD ORDERAB LES Final Result Performing Organization Address [facility] Co de Phone Number [facility] [address] [place] [phone] * SCL-70 Antibody (04/06/2025 10:07 AM EDT) SCL-70 Antibody <1.0 NEG <1.0 NEG AI [facility] Comment:THIS TEST WAS PERFOR MED AT:[facility] [employer] [address] GRABIEL JIMENEZ MD 04/06/2025 10:0 7 AM EDT 04/06/2025 2:08 PM EDT Generic External Data Provider LAB BLOOD ORDERAB LES Final Result Performing Organization Address [facility] Co de Phone Number [facility] [address] [place] [phone] * DNA (ds) Antibody (04/06/2025 10:07 AM EDT) Anti DNA DS Antibody <1 IU/mL [facility] Comment:IU/mL Interpretation < or = 4 Negative 5-9 Indeterminate > or = 10 PositiveTHIS TEST WAS PERFORMED AT:[facility] [address] [phone] JIMENEZ MD 04/06/2025 10:0 7 AM EDT 04/06/2025 2:08 PM EDT us Generic External Data Provider LAB BLOOD ORDERAB LES Final Result Performing Organization Address [facility] Co de Phone Number [facility] [address] [place] [phone] * Hypersensitivity Pneumonitis Screen (04/06/2025 10:07 AM EDT) Aspergillus fumigatus Ab NEGATIVE NEGATIVE [facility] Micropolyspora Faeni NEGATIVE NEGATIVE [facility] Winston Serum Abs NEGATIVE NEGATIVE [facility] Thermoactinomyces candidus NEGATIVE NEGATIVE [facility] Thermoactinomyces vulgaris Ab NEGATIVE NEGATIVE [facility] Saccharomonospora viridis Ab NEGATIVE NEGATIVE [facility] Comment:This test was develo ped and its analytical performancecharacteristics have been determined by [employer].It has not been cleared or approved by the FDA. This assayhas been validated pursuant to the CLIA regulations and isused for clinical purposes.THIS TEST WAS PERFORMED AT:[employer] [facility] [email or web address] [id number] [facility] [place] [phone] MARTINEZ MD,PHD,[place] 04/06/2025 10:0 7 AM EDT 04/06/2025 2:08 PM EDT us Generic External Data Provider LAB BLOOD ORDERAB LES Final Result Performing Organization Address [facility] Co de Phone Number [facility] [address] [place] [phone] * Rheumatoid Factor (04/06/2025 10:07 AM EDT) Pathologist [facility] Rheumatoid Factor <13.0 <15.0 IU/mL [facility] 04/06/2025 10:0 7 AM EDT 04/06/2025 2:08 PM EDT Generic External Data Provider LAB BLOOD ORDERAB LES Final Result Performing Organization Address [facility]/ZIP Co de Phone Number [facility] [address] [place] [phone] * NENA Screen,IFA, with Reflex to Titer and Pattern (04/06/2025 10:07 AM EDT) Pathologist [facility] Anti Nuclear Antibody Screen NEGATIVE NEGATIVE [facility] Comment:NENA IFA is a first l ine screen for detecting thepresence of up to approximately 150 autoantibodies invarious autoimmune diseases. A negative NENA IFA resultsuggests an NENA-associated autoimmune disease is notpresent at this time, but is not definitive. If thereis high clinical suspicion for Sjogren's syndrome,testing for anti-SS-A/Ro antibody should be considered.Anti-Xochitl-1 antibody should be considered for clinicallysuspected inflammatory myopathies.AC-0: NegativeInternational Consensus on NENA Patterns(https://doi.org/10.1515/dqkg-5960-0031)For additional information, please refer tohttp://education.Kuddle/faq/DGC918(This link is being provided for informational/educational purposes only.)THIS TEST WAS PERFORMED AT:[employer] [place] [phone] JIMENEZ MD NENA Titer [facility] NENA Pattern [facility] NENA TITER 2 (REF LAB) [facility] NENA Pattern 2 [facility] NENA TITER 3 [facility] NENA PATTERN 3 [facility] 04/06/2025 10:0 7 AM EDT 04/06/2025 2:08 PM EDT us Generic External Data Provider LAB BLOOD ORDERAB LES Final Result Performing Organization Address [facility] Co de Phone Number [facility] [address] [place] [phone] * Lipase (04/06/2025 10:07 AM EDT) Pathologist [facility] Lipase 14 8 - 78 U/L [facility] Blood Venous blood specimen / Unknown 04/06/2025 10:07 AM EDT 04/06/2025 2:08 PM EDT us Sigrid Avilez MD LAB BLOOD ORDERABLES Final Re sult [facility] [address] [place], [place] [phone] * (ABNORMAL) Comprehensive Metabolic Panel (04/06/2025 10:07 AM EDT) Sodium 140 135 - 145 mmol/L [facility] Potassium 4.2 3.3 - 5.1 mmol/L [facility] Chloride 104 96 - 108 mmol/L [facility] Carbon Dioxide 29 22 - 29 mmol/L [facility] Anion Gap 11(L) 12 - 20 [facility] Urea Nitrogen (BUN) 12 9 - 16 mg/dL [facility] Creatinine, Serum 0.80 0.5 - 1.4 mg/dL [facility] Estimated Glomerular Filt Rate >60 [facility] Comment:Chronic Kidney Disea se: Estimated GFR < 60 mL/min/1.61s8Blkbzu Kidney Disease: Estimated GFR < 15 mL/min/1.73m2 Glucose 113 60 - 115 mg/dL [facility] Calcium 8.9 8.4 - 10.2 mg/dL [facility] Bilirubin, Total 0.5 0.0 - 1.0 mg/dL [facility] Aspartate Amino Transferase 24 5 - 37 U/L [facility] Alanine Aminotransferase 18 0 - 40 U/L [facility] Total Protein 7.5 6.5 - 8.0 g/dL [facility] Albumin Level 3.7 3.5 - 5.0 g/dL [facility] Alkaline Phosphatase 85 39 - 117 U/L [facility] Blood Venous blood specimen / Unknown 04/06/2025 10:07 AM EDT 04/06/2025 2:08 PM EDT us Sigrid Avilez MD LAB BLOOD ORDERABLES Final Re sult [facility] [address] [place] [phone] * (ABNORMAL) POCT HGB A1C (04/06/2025 10:01 AM EDT) Hemoglobin A1C 7.0(A) 4.0 - 5.7 % QC Media Lot # [id number] Lot# Expiration Date Blood 04/06/2025 10:0 1 AM EDT us Sigrid Avilez MD POINT OF CARE TEST ENTER/EDIT ORDERABLES Final Result * POCT Glucose (04/06/2025 10:00 AM EDT) Glucose Blood, POC 122 60 - 200 mg/dL [employer] Lot # [id number] Lot# Expiration Date Blood Capillary blood specimen / Unknown 04/06/2025 10:00 AM EDT us Sigrid Avilez MD POINT OF CARE TEST ENTER/EDIT ORDERABLES Final Result * (ABNORMAL) Albumin, Random Urine W/Creatinine (09/28/2024 10:16 AM EST) Creatinine, Urine 177.21 mg/dL [facility] Microalbumin Urine 54.0 mg/L [facility] Microalbum Creatinine Ratio Ur 30.4(H) <30 ug/mg cr [facility] Comment:Albumin/Creatinine R at Reference Ranges: Normal: < 30 ug/mg creatinine Microalbuminuria: 30 - 300 ug/mg creatinineClinical Albuminuria: > 300 ug/mg creatinine Urine (Urine, Random) 09/28/2024 10:16 AM EST 09/28/2024 2:31 PM EST Sigrid Avilez MD LAB URINE ORDERABLES Final Re sult Performing Organization Address [facility] Co de Phone Number [facility] [address] [place] [phone] * Lipid Panel, Standard (03/28/2024 9:15 AM EDT) Triglycerides 84 <150 mg/dL [facility] Comment:Desirable Triglyceri de: less than 150 mg/dLBorderline High Triglyceride 150-199 mg/dLHigh Triglyceride: 200-499 mg/dLVery High Triglyceride: greater than or equal to 5OO mg/dL Cholesterol 133 <200 mg/dL [facility] Comment:Desirable Cholestero l: less than 200 mg/dLBorderline High Cholesterol: 200-239 mg/dLHigh Cholesterol: greater than 239 mg/dL LDL Cholesterol Calculated 61 <100 mg/dL [facility] Comment:Desirable LDL: less than 100 mg/dLNear Optimal/Above Optimal LDL: 110- 129 mg/dLBorderline High LDL: 130-159 mg/dLHigh LDL: 160-189 mg/dLVery High LDL: greater than or equal to 190 mg/dL HDL Cholesterol 56 >40 mg/dL [facility] Comment:Desirable HDL: great er than 40 mg/dL Note: This HDL assay may give artificially low results in patients with liver disease. Blood Venous blood specimen / Unknown 03/28/2024 9:15 AM EDT 03/28/2024 2:13 PM EDT Sigrid Avilez MD LAB BLOOD ORDERABLES Final Re sult Performing Organization Address City/[facility]/ZIP Co de Phone Number [facility] [address] [place] [address] [phone] * Cologuard?? colon cancer screening (08/14/2023 9:00 AM EST) Cologuard Result Negative Negative 08/21/20 5:50 PM EST [facility] (CLIA #:[id number]) Comment: NEGATIVE TEST RESULT. A negative Cologuard result indicates a low likelihood that a colorectal cancer (CRC) or advanced adenoma (adenomatous polyps with more advanced pre-malignant features) is present. The chance that a person with a negative Cologuard test has a colorectal cancer is less than 1 in 1500 (negative predictive value >99.9%) or has an advanced adenoma is less than 5.3% (negative predictive value 94.7%). These data are based on a prospective cross-sectional study of 10,000 individuals at average risk for colorectal cancer who were screened with both Cologuard and colonoscopy. (Bony Langley et al, N Engl J Med 2014;370(14):0505-6844) The normal value (reference range) for this assay is negative. COLOGUARD RE-SCREENING RECOMMENDATION: Periodic colorectal cancer screening is an important part of preventive healthcare for asymptomatic individuals at average risk for colorectal cancer. Following a negative Cologuard result, the [place] [employer] and U.S. Multi-Society Task Force screening guidelines recommend a Cologuard re-screening interval of 3 years. References: [place] [employer] Guideline for Colorectal Cancer Screening: https://www.cancer.org/cancer/ftfiy-ixqjrr-kcbvur/mraldwudy-nkumsobgb-tkegzyw/ac s-rec ommendations.html.; Hernandez DK, Antonino MEDEROS, Jessica FosterK, Colorectal Cancer Screening: Recommendations for Physicians and Patients from the U.S. Multi-Society Task Force on Colorectal Cancer Screening , Am J Gastroenterology 2017; 112:7128-1810. TEST DESCRIPTION: Composite algorithmic analysis of stool DNA-biomarkers with hemoglobin immunoassay. Quantitative values of individual biomarkers are not [...] (Bony Hatfield al, N Engl J Med 2014;370(14):5119-0009.) Cologuard may produce a false negative or false positive result (no colorectal cancer or precancerous polyp present at colonoscopy follow up). A negative Cologuard test result does not guarantee the absence of CRC or advanced adenoma (pre-cancer). The current Cologuard screening interval is every 3 years. ([place] [employer] Society and U.S. Multi-Society Task Force). Cologuard performance data in a 10,000 patient pivotal study using colonoscopy as the reference method can be accessed at the following location: www.Q-Bot/results. Additional description of the Cologuard test process, warnings and precautions can be found at www.[employer]ktiv[employer]OurStoryrd.LegUP. Stool specimen (specimen) 08/14/2023 9:00 AM EST 08/17/2023 1:58 PM EST Sigrid Avilez MD LAB MOLECULAR DIAGNOSTICS ORD ERABLES Final Result [facility] (CLIA #:[id number]) [address] [place] [address], from Last 3 Months or Most Recently Relevant to Health Maintenance Insurance [facility] LONG-TERM OPTIONS (O D-SNP) Care Teams Carbon Paper Coating Supervisor Relationship Specialty Start Date End Date Sigrid Avilez MD [address] [place] [address] [place] [address] PCP - General Family Medicine 08/31/18
--- OUTSIDE RECORDS SUMMARY | 2025-05-22 06:59 | XMS_ITS | Encounter Summary ---
Author Organization [employer] Address [address] [place] [address] 7t [place] [address] Care Team Providers Care School Administrator Name Role Phone Sigrid Avilez MD Primary Care Provider [phone] Reason for Visit * Reason Comments Med Refill Encounter Details Date Type Department Care Team (Late Contact Info) Description 03/02/2023 Refill [facility] MED & PEDS [address] [place], [place] [phone] Sigrid Avilez MD [address] [place] [address] Social History Tobacco Use Types Packs/Day Years [...] Description 07/03/2025 9:00 AM EST Office Visit [facility] OPTOMETRY [address] [place], [place] [phone] Tarka, Trini, OD [address] [place] [address] documented as of this encounter Visit Diagnoses Not on filedocumented in this encounter Additional Health Concerns Assessment Noted Time PHQ-9 Depression Total Score: 0 10/15/19 23 9:23 AM EST documented as of this encounter Care Teams School Administrator Relationship Specialty Start Date End Date Sigrid Avilez MD [address] [place] [address] PCP - General Family Medicine 08/31/18 documented as of this encounter
--- OUTSIDE RECORDS SUMMARY | 2025-05-22 06:59 | XMS_ITS | Encounter Summary ---
Author Organization [employer] Address [address] [place] [address] Care Team Providers Care Supervisor Tumblers Name Role Phone Sigrid Avilez MD Primary Care Provider [phone] Encounter Details Date Type Department Care Team (Late st Contact Info) Description 03/25/2024 Orders Only [facility] CHC MED & PEDS [address] [place], [place] [phone] Provider, MD Ernst Social History Tobacco Use [...] Description 07/03/2025 9:00 AM EST Office Visit [facility] OPTOMETRY [address] [place], [place] [phone] TarkaTrini, OD [address] [place] [address] documented as of this encounter Procedures Procedure [...] documented as of this encounter Care Teams Supervisor Tumblers Relationship Specialty Start Date End Date Sigrid Avilez MD [address] [place] [address] PCP - General Family Medicine 08/31/18 documented as of this encounter
--- OUTSIDE RECORDS SUMMARY | 2025-05-22 06:59 | XMS_ITS | Encounter Summary ---
Author Organization [employer] Address [address] [place] [address] 7t [place] [address] Care Team Providers Care Mobility Scooter Repairer Name Role Phone Sigrid Avilez MD Primary Care Provider [phone] Reason for Visit * Reason Comments Med Change Request Encounter Details Date Type Department Care Team (Late Contact Info) Description 11/18/2022 Refill [facility] MED & PEDS [address] [place], [place] [phone] Sigrid Avilez MD [address] [place] [address] Type 2 diabetes mellitus without complication, without long-term current use of insulin ([facility]) Social History Tobacco Use Types Packs/Day Years [...] Description 07/03/2025 9:00 AM EST Office Visit [facility] OPTOMETRY [address] [place] [address] Amandeepnupur Trini, OD [address] [place] [address] documented as of this encounter Visit Diagnoses Diagnosis Type 2 diabetes mellitus without complication, without long-term current use of insulin ([facility]) documented in this encounter Additional Health Concerns Assessment Noted Time PHQ-9 Depression Total Score: 0 10/15/19 23 9:23 AM EST documented as of this encounter Care Teams Mobility Scooter Repairer Relationship Specialty Start Date End Date Sigrid Avilez MD [address] [place] [address] PCP - General Family Medicine 08/31/18 documented as of this encounter
--- OUTSIDE RECORDS SUMMARY | 2025-05-22 06:59 | XMS_ITS | Encounter Summary ---
Author Organization [employer] Address [address] [place] [address] 7t [place] [address] Care Team Providers Care Filler Machine Operator Name Role Phone Sigrid Avilez MD Primary Care Provider [phone] Encounter Details Date Type Department Care Team (Late Contact Info) Description 01/13/2023 Orders Only [facility] CHC MED & PEDS [address] [place], [place] [phone] Esha Gilman LPN Social History Tobacco Use [...] Description 07/03/2025 9:00 AM EST Office Visit [facility] OPTOMETRY [address] [place], [place] [phone] Trini Smith OD [address] [place], [place] [phone] documented as of this encounter Visit Diagnoses Not on filedocumented in this encounter Additional Health Concerns Assessment Noted Time PHQ-9 Depression Total Score: 0 10/15/19 23 9:23 AM EST documented as of this encounter Care Teams Filler Machine Operator Relationship Specialty Start Date End Date Sigrid Avilez MD [address] [place] [address] PCP - General Family Medicine 08/31/18 documented as of this encounter
--- OUTSIDE RECORDS SUMMARY | 2025-05-22 06:59 | XMS_ITS | Encounter Summary ---
Author Organization [employer] Address [address] [place] [address] 7t [place] [address] Care Team Providers Care Food Production Machine Operator Name Role Phone Sigrid Avilez MD Primary Care Provider [phone] Reason for Visit * Reason Comments Med Change Request Encounter Details Date Type Department Care Team (Late Contact Info) Description 01/20/2023 Refill [facility] MED & PEDS [address] [place], [place] [phone] Sigrid Avilez MD [address] [place] [address] Type 2 diabetes mellitus without complication, without long-term current use of insulin ([facility]) Social History Tobacco Use Types Packs/Day Years [...] Description 07/03/2025 9:00 AM EST Office Visit [facility] OPTOMETRY [address] [place] [address] Amandeepnupur Trini, OD [address] [place] [address] documented as of this encounter Visit Diagnoses Diagnosis Type 2 diabetes mellitus without complication, without long-term current use of insulin ([facility]) documented in this encounter Additional Health Concerns Assessment Noted Time PHQ-9 Depression Total Score: 0 10/15/19 23 9:23 AM EST documented as of this encounter Care Teams Food Production Machine Operator Relationship Specialty Start Date End Date Sigrid Avielz MD [address] [place] [address] PCP - General Family Medicine 08/31/18 documented as of this encounter
--- OUTSIDE RECORDS SUMMARY | 2025-05-22 06:59 | XMS_ITS | Encounter Summary ---
Author Organization [employer] Address [address] [facility] 7t [place] [address] Care Team Providers Care Specimen Accessioner Name Role Phone Sigrid Avilez MD Primary Care Provider [phone] Reason for Visit * Reason Onset Date Comments Prior Authorization 11/16/2024 Encounter Details Date Type Department Care Team ([facility] st Contact Info) Description 11/16/2024 Telephone [facility] CHC MED & PEDS [address] [place], [place] [phone] Sigrid Avilez MD [address] [place] [address] Prior Authorization Social History Tobacco Use Types [...] - 11/25/2024 3:31 PM EDT Tc from [facility] requesting status of PA requested 11/11/2024 * Telephone Encounter - Eri Gallegos - 11/23/2024 11:03 AM EDT Tc from pt's daughter requesting status of prior message. * Telephone Encounter - Brigida Saravia - 11/16/2024 10:21 AM EDT Tc from Julissa at [facility] pharmacy requesting status on PA requested on 11/11/24 for fluticasone-salmeterol ([employer] RespiClick) 232-14 MCG/ACT inhaler. Julissa stated it is urgent for pt to have medication. Lane Marker Installer advise will send a message high priority. documented in this encounter Plan of Treatment Upcoming Encounters Date Type Department Care Team (Late st Contact Info) Description 07/03/2025 9:00 AM EST Office Visit [facility] OPTOMETRY [address] [place] [address] Trini Smith, OD [address] [place] [address] documented as of this encounter Visit Diagnoses Not on filedocumented in this encounter Additional Health Concerns Assessment Noted Time PHQ-9 Depression Total Score: 0 09/28/19 25 9:18 AM EST documented as of this encounter Care Teams Specimen Accessioner Relationship Specialty Start Date End Date Sigrid Avilez MD [address] [place] [address] PCP - General Family Medicine 08/31/18 documented as of this encounter
--- OUTSIDE RECORDS SUMMARY | 2025-05-22 06:59 | XMS_ITS | Encounter Summary ---
Author Organization [employer] Address [address] [facility] 7t [place] [address] Care Team Providers Care Dentist Attendant Name Role Phone Sigrid Avilez MD Primary Care Provider [phone] Encounter Details Date Type Department Care Team (Late st Contact Info) Description 12/09/2024 Orders Only [facility] [address] [place], [place] [phone] Provider, MD Ernst Social History Tobacco Use [...] Description 07/03/2025 9:00 AM EST Office Visit [facility]ET[facility] [address] [place] [address] TarkaTrini, OD [address] [place] [address] documented as of this encounter Procedures Procedure Name Priority Date/Time Associated Diagnosis Comments CT CHEST WO CONTRAST Routine 12/20/2024 8:25 PM EDT documented in this encounter Results * CT Chest w/o Contrast (12/20/2024 8:25 PM EDT) Anatomical Region Laterality Modality Body, Chest Computed Tomogra phy 12/20/2024 8:25 PM EDT Narrative 12/20/2024 8:27 PM EDT [address] [address] [address] Scan Report Signed Patient: Benny Vásquez MR#: [id number] : 1955 Acct:[id number] Age/Sex: 69 / M ADM Date: 12/16/24 Loc: HO.CT Attending Dr: Lo Quinteros FREIGHT RECEIVER Ordering Physician: Lo Quinteros NP Date of Service: 12/16/24 Procedure(s): CT chest wo IV con Accession Number(s): [id number] cc: Sigrid Avilez MD; Lo Quinteros NP Report Number: [id number]: Total DLP = 91.00 mGy-cm CLINICAL HISTORY: R05.3 - Chronic cough CT chest without contrast Comparison: None Findings: Right upper lobe interstitial and alveolar infiltrate. Finding may represent pneumonia, please correlate. Right paratracheal and precarinal adenopathy. Subcarinal adenopathy also noted. Largest node measures 1.9 cm. Findings may be reactive. Emphysema and chronic interstitial fibrosis. Findings are more prominent in the lower lobes. Peripheral end stage honeycombing in lower lobes. No significant free pleural fluid. No significant focal bony abnormalities. Impression: Right upper lobe consolidation, possible pneumonia Mediastinal adenopathy, possibly reactive Short-term follow-up recommended This document has been electronically signed by: Griffin Contreras MD on 12/20/2024 20:25:46 Dictated By: Griffin Contreras MD Signed By: <Electronically signed by Griffin Contreras MD in OV> 12/20/242025 DD/ 24 TD/TT: 12/20/242024 Skin Pass Operator: Procedure Note Donotuseinterpreter, Image - 12/20/[address] [place] [id number] [address] Scan Report Signed Patient: Adan Vásquez#: [id number] : 5Acct:[id number] Age/Sex: 69 / MADM Date: 12/16/24 Loc: HO.CT Attending Dr: Lo Quinteros NP Ordering Physician: Lo Quinteros NP Date of Service: 12/16/24 Procedure(s): CT chest wo IV con Accession Number(s): [id number] cc: Sigrid Avilez MD; Lo Quinteros NP Report Number: [id number]: Total DLP = 91.00 mGy-cm CLINICAL HISTORY: R05.3 - Chronic cough CT chest without contrast Comparison: None Findings: Right upper lobe interstitial and alveolar infiltrate. Finding may represent pneumonia, please correlate. Right paratracheal and precarinal adenopathy. Subcarinal adenopathy also noted. Largest node measures 1.9 cm. Findings may be reactive. Emphysema and chronic interstitial fibrosis. Findings are more prominent in the lower lobes. Peripheral end stage honeycombing in lower lobes. No significant free pleural fluid. No significant focal bony abnormalities. Impression: Right upper lobe consolidation, possible pneumonia Mediastinal adenopathy, possibly reactive Short-term follow-up recommended This document has been electronically signed by: Griffin Contreras MD on 12/20/2024 20:25:46 Dictated By: Griffin Contreras MD Signed By: <Electronically signed by Griffin Contreras MD in OV> 12/20/242025 DD/ 24 TD/TT: 12/20/242024 Skin Pass Operator: [facility] External Provider IMG CT PROCEDURES Final Result documented in this encounter Visit Diagnoses Not on filedocumented in this encounter Additional Health Concerns Assessment Noted Time PHQ-9 Depression Total Score: 0 09/28/19 9:18 AM EST documented as of this encounter Care Teams Dentist Attendant Relationship Specialty Start Date End Date Sigrid Avilez MD [address] [place] [address] PCP - General Family Medicine 08/31/18 documented as of this encounter
--- OUTSIDE RECORDS SUMMARY | 2025-05-22 06:59 | XMS_ITS | Encounter Summary ---
Author Organization [employer] Address [address] [place] [address] 7t [place] [address] Care Team Providers Care Gang Supervisor Pipe Lines Name Role Phone Sigrid Avilez MD Primary Care Provider [phone] Reason for Visit * Reason Comments Med Change Request Encounter Details Date Type Department Care Team ([facility] Contact Info) Description 01/20/2023 Refill [facility] CHC MED & PEDS [address] [place], [place] [phone] Germania Chris MD [address] [place] [address] Social History Tobacco Use Types Packs/Day Years [...] Upcoming Encounters Date Type Department Care Team ([facility] Contact Info) Description 07/03/2025 9:00 AM EST Office Visit [facility] OPTOMETRY [address] [place], [place] [phone] Sarah Trini, OD [address] [place] [address] documented as of this encounter Visit Diagnoses Not on filedocumented in this encounter Additional Health Concerns Assessment Noted Time PHQ-9 Depression Total Score: 0 10/15/19 23 9:23 AM EST documented as of this encounter Care Teams Gang Supervisor Pipe Lines Relationship Specialty Start Date End Date iSgrid Avilez MD [address] [place] [address] PCP - General Family Medicine 08/31/18 documented as of this encounter
--- OUTSIDE RECORDS SUMMARY | 2025-05-22 06:59 | XMS_ITS | Encounter Summary ---
Author Organization [employer] Address [address] [place] [address] 7t [place] [address] Care Team Providers Care Rug Cutter Helper Name Role Phone Sigrid Avilez MD Primary Care Provider [phone] Reason for Visit * Reason Comments Med Change Request Encounter Details Date Type Department Care Team (Late Contact Info) Description 11/18/2022 Refill [facility]C MED & PEDS [address] [place], [place] [phone] Sigrid Avilez MD 505 [place] [address] Type 2 diabetes mellitus without complication, without long-term current use of insulin ([facility]) Social History Tobacco Use Types [...] 9:00 AM EST Office Visit [facility] OPTOMETRY [address] [place] [address] Amandeepnupur Trini, OD [address] [place] [address] documented as of this encounter Visit Diagnoses Diagnosis Type 2 diabetes mellitus without complication, without long-term current use of insulin ([facility]) documented in this encounter Additional Health Concerns Assessment Noted Time PHQ-9 Depression Total Score: 0 10/15/19 23 9:23 AM EST documented as of this encounter Care Teams Rug Cutter Helper Relationship Specialty Start Date End Date Sigrid Avilez MD [address] [place] [address] PCP - General Family Medicine 08/31/18 documented as of this encounter
[2025-05-22] MEDS: iohexoL 350 MG/ML 100 ML INFUS..BTL 85 ML IV (09:57)
[2025-05-22] MEDS: Barium Sulfate Oral (Mocha) 450 ML ORAL.SUSP 900 ML PO (09:58)
[2025-05-22 16:56] LABS: Creatinine POC 0.8 mg/dL (0.5-1.4); GFR POC > 60
== END 2025-05-22 06:57 | disposition home or self-care (01) ==
LOC: HO.CT 06:56
PROVIDERS: PCP Pediatrics; Visit Provider Pediatrics
DX: R10.31 Right lower quadrant pain (principal); J84.9 Interstitial pulmonary disease, unspecified; R05.3 Chronic cough; R93.89 Abnormal findings on diagnostic imaging of other specified body structures; Z87.891 Personal history of nicotine dependence; K21.9 Gastro-esophageal reflux disease without esophagitis
CPT/HCPCS: 74177; 82565; 99202; 99212; Q9967

== ENCOUNTER → 2025-05-22 06:58 | Outpatient (BNV) | payer OTHER, SELFPAY | PROVIDERS: PCP Pediatrics; Visit Provider Radiology Diagnostic Radiology | DX: K57.30 Diverticulosis of large intestine without perforation or abscess without bleeding (principal) | CPT/HCPCS: 74177 ==

== ENCOUNTER 2025-05-22 09:36 | Outpatient (AMB) | payer OTHER, SELFPAY ==
--- NOTE | 2025-05-22 09:37 | MHC.OFFVIS ---
Vital Signs 05/22/25 09:39 Height 5 ft 2 in Weight 128 lb BMI 23.4 BP 144/68 H Blood Pressure Location Rt brachial Position Sitting Pulse 74 Pulse Source Pulse Oximeter Pulse Oximetry (%) 97 Oxygen Delivery Method Room Air Intake Visit Reasons: Gastroesophageal reflux disease (GERD) Intake Note: New pt for initial eval of GERD. Consult for colo/egd. Last colo w/ Dr. Braden. CC: Pt reports hx of GERD, PCP has started pt on PPI which pt reports has been fairly effective. No additional sx reported per pt. Woolen Suiting Shrinker Required: Yes Woolen Suiting Shrinker Services: Woolen Suiting Shrinker Present Woolen Suiting Shrinker Name: Johanna (GI LM) + [phone] Accompanied by: Family/Other Allergies aspirin (ASPIRIN) Allergy (Intermediate, Unverified 05/22/25 11:21) SWELLING HPI HPI Gastroesophageal reflux disease (GERD): Details: 69-year-old male with past medical history of tobacco use, quit 4 years ago, interstitial lung disease, COPD, hypercholesteremia, hypertension, GERD, diabetes is here today for initial consultation. Patient was sent to us by his PCP. Patient has been diagnosed with GERD and started on pantoprazole. Patient reports that has been working for him fairly well. Patient has colonoscopy with Dr. Braden and is due to go for another one. However patient reports that he has been having worsening shortness of breath. Has follow-up with his community health director today. Denies any fever or chills. Denies any chest pain, chest pressure, presyncope or syncope. Denies any edema to his lower extremities. Denies any fever or chills. Reports that he is moving his bowels almost every day. Admits to occasional abdominal bloating. [facility] Medical History (Updated 06/14/25 @ 18:33 by Lupe Ryan [facility]) GERD (gastroesophageal reflux disease) Diabetes HTN (hypertension) Social History Patient Tobacco Use Status: Former Tobacco user Cigarette Packs Per Day: 1 Years Smoked: 50 Quit 2020 Review of Systems Const Denies weight gain and Denies weight loss ENT Reports no additional complaints, Denies dysphagia and Denies odynophagia Card Reports no additional complaints Resp Reports no additional complaints GI Denies abdominal pain, Denies belching, Denies melena, Reports bloating (Occasional), Denies change in bowel habits, Denies dysphagia, Denies excessive flatus, Denies dyspepsia, Reports heartburn, Denies diarrhea, Denies loose stools, Denies nausea, Denies odynophagia and Denies vomiting Reports no additional complaints Musc Reports no additional complaints Neuro Reports no additional complaints Psych Reports no additional complaints Endo Reports no additional complaints Physical Exam Vital Signs: Last Vital Signs Pulse 74 05/22/25 09:39 BP 144/68 H 05/22/25 09:39 Pulse Ox 97 05/22/25 09:39 Oxygen Delivery Method Room Air 05/22/25 09:39 BMI result Body Mass Index 23.4 Const General: healthy appearing, no acute distress and well developed Nutritional Appearance: well nourished Orientation/consciousness: patient oriented x3 Resp Effort & Inspection: normal respiratory effort, able to speak in complete sentences, no tracheal deviation and symmetric chest movement Auscultation: wheezes (Mild inspiratory and expiratory) Cardio Rate: regular rate GI Inspection: Yes normal to inspection and No distended Palpation (GI): Soft to palpation, not firm, nontender and No hepatosplenomegaly present Auscultation: normal bowel sounds General: Yes no CVA tenderness Back/Spine/Pelvis Back: no CVA tenderness Skin General skin exam: elasticity normal, turgor normal and dry skin Neuro General: patient oriented x3 Psych Appearance: grossly normal Mental Status: mental status grossly normal Assessment & Plan Assessment & Plan (1) GERD (gastroesophageal reflux disease): Code(s): K21.9 - Gastro-esophageal reflux disease without esophagitis Category: Medical Qualifiers: Esophagitis presence: esophagitis presence not specified Qualified Code(s): K21.9 - Gastro-esophageal reflux disease without esophagitis (2) Postprandial epigastric pain: Code(s): R10.13 - Epigastric pain Plan Patient will avoid dietary triggers and late night snacking. Reports abdominal bloating. Will check lipase, send patient for upper GI with barium swallow. He reports that pantoprazole helps, however he still sometimes feels reflux specially at night time. Denies eating late at night can start taking famotidine at bedtime patient also reports that sometimes he feels like he does not empty his bowels completely even though he goes every day. He can take senna as needed. He will follow-up in our office in 3 months we will discuss going for colonoscopy and possible upper endoscopy. Patient is agreeable to current plan of care and verbalizes understanding of instructions. He was given the opportunity to ask questions and all questions answered. Thank you for allowing me to participate in his care Orders: Orders Vitamin D 25-OH (D2 and D3) 05/22/25 E55.9 - Vitamin D deficiency, unspecified Vitamin B12 and Folate 05/22/25 R19.7 - Diarrhea, unspecified Lipase 05/22/25 R10.9 - Unspecified abdominal pain FL upper GI w air w Ba Swallow 05/22/25 K21.9 - Gastro-esophageal reflux disease without esophagitis Medications: New sennosides (Natural Senna Laxative) 17.2 mg (2 x 8.6 mg) PO BEDTIME 60 tabs 3RF constipation K59.00 - Constipation, unspecified famotidine (Pepcid) 20 mg PO BEDTIME 30 tabs 3RF K21.9 - Gastro-esophageal reflux disease without esophagitis Coding Level of Care Code New Pt Level 4 (08733) Diagnoses Gastroesophageal reflux disease, unspecified whether esophagitis present K21.9 Esophagitis presence: esophagitis presence not specified Postprandial epigastric pain R10.13 Time Spent (min) 45 Comment 35 minutes spent with patient and additional 10 minutes spent reviewing his records
[2025-05-22 09:39] VITALS: BP 144/68; PULSE 74; O2SAT 97; BMI 23.4
== END 2025-05-22 10:27 | disposition home or self-care (01) ==
PROVIDERS: PCP Pediatrics; Visit Provider Nurse Practitioner Family
DX: K21.9 Gastro-esophageal reflux disease without esophagitis (principal); R10.13 Epigastric pain
CPT/HCPCS: 99204

== ENCOUNTER 2025-05-22 11:15 | Outpatient (AMB) | payer OTHER, SELFPAY ==
--- NOTE | 2025-05-22 11:15 | MHC.OFFVIS ---
Vital Signs 05/22/25 11:17 Height 5 ft 2 in Weight 132 lb 4.438 oz BMI 24.2 BP 120/56 L Blood Pressure Location Lt brachial Position Sitting Pulse 71 Pulse Source Pulse Oximeter Pulse Oximetry (%) 99 Oxygen Delivery Method Room Air Intake Visit Reasons: ILD Team Sports Sales Associate Required: Yes Team Sports Sales Associate Language: Historical Archeologist Services: Team Sports Sales Associate Present Team Sports Sales Associate Name: Lulu Salinas LM Allergies aspirin (ASPIRIN) Allergy (Intermediate, Unverified 05/22/25 11:21) SWELLING HPI HPI ILD: Details: Benny is a pleasant 69 year old male, former 50 pack year smoker, quit 4 years ago, with underlying h/o pulmonary fibrosis, DMII, HTN, HLD and PVD. He reports being dx with pulmonary fibrosis years ago, and was under the care of pulmonary through [facility] however lost to follow up. He reports having RUL, RML, RLL wedge resection via thoracic and pathology suggestive of UIP and offered Ofev for pulmonary fibrosis, however not financially feasible as well as potential side effects. At the last visit sent for CTD workup and PFT and presents to review results today. He denies significant dyspnea, wheezing or chest tightness, since initiating Trelegy however endorses dry cough. [facility] Medical History (Updated 05/22/25 @ 09:38 by Hi Perez [facility]) GERD (gastroesophageal reflux disease) Diabetes HTN (hypertension) Social History Patient Tobacco Use Status: Former Tobacco user Cigarette Packs Per Day: 1 Years Smoked: 50 Quit 2020 Review of Systems Const Denies chills, Denies excessive sweating, Denies fever(s), Denies headache(s) and Denies night sweats Eyes Denies dry eyes, Denies irritation and Denies itchy eyes ENT Reports Normal hearing present, Denies headache(s), Denies nasal congestion, Denies nasal discharge and Denies sore throat Card Denies chest pain, Denies chest pain at rest, Denies chest pain with activity, Denies claudication, Denies leg edema, Denies dyspnea on exertion, Denies orthopnea and Denies paroxysmal nocturnal dyspnea Resp Denies chest congestion, Reports cough, Denies excessive phlegm production, Denies pain on inspiration, Denies pain with cough, Denies dyspnea on exertion, Denies stridor and Denies wheezing Musc Denies myalgias Neuro Reports Normal hearing present and Denies headache(s) Endo Denies excessive sweating Enrique/Lymph Denies lymphadenopathy Aller/Immun Denies itchy eyes, Denies seasonal rhinorrhea and Denies wheezing Physical Exam Vital Signs: Last Vital Signs Pulse 71 05/22/25 11:17 BP 120/56 L 05/22/25 11:17 Pulse Ox 99 05/22/25 11:17 Oxygen Delivery Method Room Air 05/22/25 11:17 BMI result Body Mass Index 24.2 Const General: cooperative, healthy appearing, comfortable, no acute distress, well developed and alert Orientation/consciousness: patient oriented x3 Limitations: no limitations HEENT Head: Yes normal to inspection, Yes normocephalic and Yes atraumatic Ears: hearing grossly normal bilaterally and external ears normal Eyes General: appearance normal, both eyes and all related structures Eyelids: Yes eyelids normal Sclerae: sclerae normal EOM: EOMs intact bilaterally Neck Neck: Yes normal visual inspection and Yes no lymphadenopathy Lymphatic: no lymphadenopathy noted Chest Chest palpation & inspection: normal inspection of the chest Resp Other: inspiratory bibasilar crackles Effort & Inspection: normal respiratory effort, able to speak in complete sentences, no audible wheezes, no cough, no stridor, not tachypneic, no tripod positioning and no use of accessory muscles Cardio Jugular venous distension: no JVD Rate: regular rate Rhythm: regular rhythm Skin Other: warm, dry General skin exam: no rashes or lesions noted Neuro General: patient oriented x3 Cranial nerves: Yes Normal hearing present Cognition (Neuro): normal cognition Gait exam (Neuro): Normal gait present Extrem General: Yes normal to inspection, Yes capillary refill normal, Yes no clubbing, cyanosis or edema and Yes no pedal edema Psych Appearance: grossly normal and well kempt Speech and movement: Normal speech and movement present and Clear speech present Affect: normal affect Attitude: cooperative Thought process: Normal thought process present Thought content: Normal thought content present Insight: Good insight present (Psych) Judgement: Good judgement present (Psych) Results Reviewed Results Reviewed: 12/2022 Dr Alejandro Assessment & Plan Assessment & Plan (1) Interstitial lung disease: Code(s): J84.9 - Interstitial pulmonary disease, unspecified Category: Medical (2) Chronic cough: Code(s): R05.3 - Chronic cough Category: Medical (3) Personal history of tobacco use: Code(s): Z87.891 - Personal history of nicotine dependence Category: Social Hx Plan At this time Benny reports moderate control of respiratory symptoms using Trelegy and albuterol MDI, advised to continue. He does report ongoing dry cough and chest CT revealed ggo, will trial prednisone. Reviewed with Dr. Juan and need to rule out alternative diagnosis such as Anti-synthetase syndrome, as CT with ggo in addition to honeycombing which is not a common finding with UIP. Will send for labs for further work up. Reviewed PFT which did not reveal any obstructive defect, however moderate to severe restrictive defect with DLCO 34%. Will repeat PFT in 6-12 months to assess for decrease in overall lung function. Will send repeat chest CT in 6 months to assess progression of ILD, as patient would like to defer any antifibrotic agents at this time. All questions were answered and patient is in agreement of plan. Will follow up in three months or sooner if needed. Orders: Orders Aldolase 05/22/25 J84.9 - Interstitial pulmonary disease, unspecified Complete Blood Count Auto Diff 05/22/25 J84.9 - Interstitial pulmonary disease, unspecified ANNA 1 Antibody 05/22/25 J84.9 - Interstitial pulmonary disease, unspecified Sm Sm/TARGET PROTECTION SPECIALIST Antibodies 05/22/25 J84.9 - Interstitial pulmonary disease, unspecified CT chest wo IV con 2 Months J84.9 - Interstitial pulmonary disease, unspecified PFT pulmonary function test 7 Months J84.9 - Interstitial pulmonary disease, unspecified Medications: New prednisone see taper instructions 20 mg x 5 days followed 10 mg x 5 days 10 mg PO DIRECTED 15 tabs 0RF Coding Level of Care Code Est Pt Level 4 (93527) Complex EM visit Add On G2211 Diagnoses Interstitial lung disease J84.9 Chronic cough R05.3 Personal history of tobacco use Z87.294
[2025-05-22 11:17] VITALS: BP 120/56; PULSE 71; O2SAT 99; BMI 24.2
== END 2025-05-22 11:51 | disposition home or self-care (01) ==
LOC: HO.HPS 11:15
PROVIDERS: PCP Pediatrics; Visit Provider Nurse Practitioner Family
DX: J84.9 Interstitial pulmonary disease, unspecified (principal); R05.3 Chronic cough; Z87.891 Personal history of nicotine dependence
CPT/HCPCS: 99214; G2211

== ENCOUNTER 2025-07-18 15:44 | Outpatient (REF) | payer OTHER, SELFPAY ==
--- NOTE | ~2025-07-18 | CT_ITS ---
EXAMINATION: CT CHEST WITHOUT CONTRAST CLINICAL INFORMATION: Chronic interstitial lung disease, follow-up from 12/16/2024. COMPARISON: CT chest 12/16/2024. TECHNIQUE: Multidetector volumetric CT imaging of the chest was done. Axial MIP volume rendering provided. Sagittal and coronal reformatted images were obtained. This CT examination was performed using dose optimization techniques as appropriate, variously including the following: *Automated exposure control *Adjustment of mA and/or kV according to patient size (this includes techniques or standardized protocols for targeted exams where dose is matched to indication/reason for exam; i.e. extremities or head) *Use of iterative reconstruction technique FINDINGS: LUNGS: Redemonstration of diffuse interstitial pulmonary disease with honeycombing and fibrosis in the bilateral subpleural lower lobes. Overall appearance is quite similar to the prior exam with perhaps minimal progression in the subpleural zones of both lungs. There is associated groundglass attenuation in the subpleural lower lobes bilaterally, suggesting ongoing/continuing lung injury. Previously seen groundglass attenuation/opacities in the right upper lobe has resolved, likely indicating a resolved infectious or inflammatory process. Traction bronchiectasis in both lower lobes, the right middle lobe and lingula, and to a lesser degree the upper lobes. No suspicious pulmonary nodules are present within the confines of extensive background lung disease. There are scattered calcified granulomata present. No acute consolidative process is present. There is mild peribronchovascular interstitial thickening, in keeping with fibrotic lung disease. There is no pleural effusion. There is no pneumothorax. MEDIASTINUM: The thyroid is diminutive. Heart size is normal. No pericardial effusion. There are similar mediastinal lymph nodes present, for example a right paratracheal node measures 1.4 cm in short axis (series 5, image 18). A subcarinal lymph node measures 1.4 cm in short axis (series 5, image 27). There are smaller prevascular and AP window lymph nodes present. These are likely in keeping with the inflammatory process within the lungs. No significant change from the prior exam. The aorta is normal in caliber with mild atheromatous calcification. There is no aneurysm. The main pulmonary artery is normal in size. The central airways are patent. The esophagus is mildly patulous, similar to the prior exam. CORONARY ARTERY CALCIFICATION: Mild. AXILLA/CHEST WALL: No lymphadenopathy is present. There is mild bilateral male gynecomastia. UPPER ABDOMEN: There has been a cholecystectomy. There is a granuloma in the dome of the right hepatic lobe. There is mild atrophy of the pancreas. OSSEOUS STRUCTURES: There is no suspicious lytic or blastic bone lesion present. There are mild to moderate degenerative changes throughout the thoracic spine with flowing anterior disc osteophytes. CT/CT chest wo IV con IMPRESSION: 1. Slight progression of fibrotic interstitial pulmonary disease, with most severe disease in the lung bases including subpleural honeycombing, bronchiectasis, and parenchymal distortion. Associated subtle groundglass opacity in the subpleural lower lobes is likely in keeping with ongoing lung injury. Overall findings are most likely in keeping with UIP versus fibrotic lung disease due to underlying systemic inflammatory disease. 2. Previously seen groundglass opacities/attenuation in the right upper lobe have resolved. No acute lung disease is currently identified. 3. Stable mediastinal lymphadenopathy, in keeping with reactive etiology. 4. Ancillary findings as discussed in the body of the report. Electronically signed by: Jose Pedroza MD 07/19/2025 08:47 AM DORIAN
== END 2025-07-18 15:45 | disposition home or self-care (01) ==
LOC: HO.CT 15:44
PROVIDERS: PCP Pediatrics; Visit Provider Nurse Practitioner Family
DX: J84.9 Interstitial pulmonary disease, unspecified (principal)
CPT/HCPCS: 71250

== ENCOUNTER → 2025-07-18 15:46 | Outpatient (BNV) | payer OTHER, SELFPAY | PROVIDERS: PCP Pediatrics; Visit Provider Radiology Diagnostic Radiology | DX: J84.9 Interstitial pulmonary disease, unspecified (principal); J47.9 Bronchiectasis, uncomplicated; J98.4 Other disorders of lung; R59.0 Localized enlarged lymph nodes | CPT/HCPCS: 71250 ==

== ENCOUNTER 2025-08-07 14:31 | Outpatient (AMB) | payer OTHER, SELFPAY ==
[2025-08-07 15:12] VITALS: BP 116/48; PULSE 72; O2SAT 100; BMI 23.4
--- NOTE | 2025-08-07 15:12 | MHC.OFFVIS ---
Vital Signs 08/07/25 15:12 Height 5 ft 2 in Weight 127 lb 13.89 oz BMI 23.4 BP 116/48 L Blood Pressure Location Lt brachial Position Sitting Pulse 72 Pulse Source Pulse Oximeter Pulse Oximetry (%) 100 Oxygen Delivery Method Nasal Cannula Oxygen Flow Rate 2 Intake Visit Reasons: ILD/[facility] DC Follow Up Senior Geologist Required: Yes Senior Geologist Language: Radio Mechanic Apprentice Services: Senior Geologist Present Senior Geologist Name: Lulu Salinas LM Allergies aspirin (ASPIRIN) Allergy (Intermediate, Unverified 08/07/25 15:15) SWELLING HPI HPI ILD/[facility] DC Follow Up: Details: Benny is a pleasant 70 year old male, former 50 pack year smoker, quit 4 years ago, with underlying h/o pulmonary fibrosis, asthma, DMII, HTN, HLD and PVD. He reports being dx with pulmonary fibrosis years ago, and was under the care of pulmonary through [facility] however lost to follow up. He underwent RUL, RML, RLL wedge resection 12/[address] Alejandro and pathology suggestive of UIP, demonstrating patchy advanced fibrosis. He was offered Ofev for pulmonary fibrosis, however not financially feasible as well as potential side effects, therefore declined. PFT 12/2024 FEV1/FVC 87%, moderate restrictive defect with decreased DLCO 34%. Prior CTD work up negative. He has been maintained on Trelegy with moderate effect however recently admitted to [facility] for acute hypoxic respiratory failure secondary to asthma and pulmonary fibrosis, ultimately treated with DuoNebs, IV Solumedrol, and discharged with 5 days of oral prednisone in addition to 2L supplemental oxygen with exertion. He reports that on his birthday, he went from a hot to a cold environment, which triggered a significant cough. On the same day, his oxygen level was noted to be low on a home oximeter, prompting a visit to the hospital where his oxygen saturation was 85%. This was the first time he required supplemental oxygen. Today he presents for hospital follow up, noting symptoms have significantly improved. He has been checking his oxygen saturation at home reporting >92% with exertion, occasionally will wear at rest. [facility] Medical History (Updated 08/25/25 @ 09:11 by Lo Quinteros NP) GERD (gastroesophageal reflux disease) Diabetes HTN (hypertension) Social History Patient Tobacco Use Status: Former Tobacco user Cigarette Packs Per Day: 1 Years Smoked: 50 Quit 2020 Review of Systems Const Denies chills, Denies excessive sweating, Denies fever(s), Denies headache(s) and Denies night sweats Eyes Denies dry eyes, Denies irritation and Denies itchy eyes ENT Reports Normal hearing present, Denies headache(s), Denies nasal congestion, Denies nasal discharge and Denies sore throat Card Denies chest pain, Denies chest pain at rest, Denies chest pain with activity, Denies claudication, Denies leg edema, Denies dyspnea on exertion, Denies orthopnea and Denies paroxysmal nocturnal dyspnea Resp Denies chest congestion, Reports cough, Denies excessive phlegm production, Denies pain on inspiration, Denies pain with cough, Denies dyspnea on exertion, Denies stridor and Denies wheezing Musc Denies myalgias Neuro Reports Normal hearing present and Denies headache(s) Endo Denies excessive sweating Enrique/Lymph Denies lymphadenopathy Aller/Immun Denies itchy eyes, Denies seasonal rhinorrhea and Denies wheezing Physical Exam Vital Signs: Last Vital Signs Pulse 72 08/07/25 15:12 BP 116/48 L 08/07/25 15:12 Pulse Ox 100 08/07/25 15:12 Oxygen Delivery Method Nasal Cannula 08/07/25 15:12 Oxygen Flow Rate 2 08/07/25 15:12 BMI result Body Mass Index 23.4 Const General: cooperative, healthy appearing, comfortable, no acute distress, well developed and alert Orientation/consciousness: patient oriented x3 Limitations: no limitations HEENT Head: Yes normal to inspection, Yes normocephalic and Yes atraumatic Ears: hearing grossly normal bilaterally and external ears normal Eyes General: appearance normal, both eyes and all related structures Eyelids: Yes eyelids normal Sclerae: sclerae normal EOM: EOMs intact bilaterally Neck Neck: Yes normal visual inspection and Yes no lymphadenopathy Lymphatic: no lymphadenopathy noted Chest Chest palpation & inspection: normal inspection of the chest Resp Other: inspiratory bibasilar crackles Effort & Inspection: normal respiratory effort, able to speak in complete sentences, no audible wheezes, no cough, no stridor, not tachypneic, no tripod positioning and no use of accessory muscles Cardio Jugular venous distension: no JVD Rate: regular rate Rhythm: regular rhythm Skin Other: warm, dry General skin exam: no rashes or lesions noted Neuro General: patient oriented x3 Cranial nerves: Yes Normal hearing present Cognition (Neuro): normal cognition Gait exam (Neuro): Normal gait present Extrem General: Yes normal to inspection, Yes capillary refill normal, Yes no clubbing, cyanosis or edema and Yes no pedal edema Psych Appearance: grossly normal and well kempt Speech and movement: Normal speech and movement present and Clear speech present Affect: normal affect Attitude: cooperative Thought process: Normal thought process present Thought content: Normal thought content present Insight: Good insight present (Psych) Judgement: Good judgement present (Psych) Assessment & Plan Assessment & Plan (1) Interstitial lung disease: Code(s): J84.9 - Interstitial pulmonary disease, unspecified Category: Medical (2) Chronic cough: Code(s): R05.3 - Chronic cough Category: Medical (3) Personal history of tobacco use: Code(s): Z87.891 - Personal history of nicotine dependence Category: Social Hx (4) Asthma: Code(s): J45.909 - Unspecified asthma, uncomplicated Category: Medical Plan The patient is recovering from a recent exacerbation. He reports his breathing is better since discharge. To address potential inhaler-induced hoarseness, the patient will switch from the Trelegy powder inhaler to the Breztri spray inhaler, prescribed as two puffs in the morning and two puffs in the evening. He will continue his daily allergy pill. Pulmonary rehabilitation was discussed as a potential future option. Though the patient's resting oxygen saturation is 100% on 2L, he has demonstrated exertional desaturation to 87%. The goal saturation for a patient is >92%. The patient is advised to use supplemental oxygen at 1 liter when mobile to maintain saturation above 92%, but it is not needed while sedentary. An overnight home oximetry test will be ordered to assess for nocturnal hypoxemia; this test will be conducted on room air. The patient has a longstanding history of hoarseness. To evaluate if the powder inhaler is a contributing factor, a switch to Breztri spray is being initiated. The patient has a pending GI workup, and the differential diagnosis includes esophageal issues or silent reflux. A referral will be placed to an Ear, Nose, and Throat (ENT) specialist in [place] for further evaluation. He will continue taking pantoprazole. All questions were answered and patient is in agreement of plan. Will follow up for regularly scheduled appointment or sooner if needed. Patient Instructions - You may stop taking your Trelegy inhaler. - Start using the Breztri inhaler: two puffs in the morning and two puffs in the evening. - Remember to rinse your mouth after using your inhaler. - You do not need to use oxygen while sitting or resting. - Use your oxygen at 1 liter per minute when you are walking or moving around. - You will receive an at-home testing kit in the mail to check your oxygen levels while you sleep. Wear it for one night without using your oxygen, and then mail it back. - We have sent a referral to an Ear, Nose, and Throat (ENT) doctor for your hoarseness. Their office will contact you to schedule an appointment. - Continue taking your pantoprazole and allergy medications as prescribed. - Your next follow-up appointment is in 10 weeks, on Thursday, September 06. Patient was informed and verbally consented to the use of an ambient scribe for clinic note documentation during this visit. Coding Level of Care Code Est Pt Level 4 (64334) Add On Problem Visit Only Diagnoses Interstitial lung disease J84.9 Chronic cough R05.3 Personal history of tobacco use Z87.891 Asthma J45.909
--- OUTSIDE RECORDS SUMMARY | 2025-08-07 23:36 | XMS_ITS | Encounter Summary ---
Author Organization [employer] Address [address] [place] [address] [address] [place] [address] Care Team Providers Care Institutional Cook Name Role Phone Sigrid Avilez MD Primary Care Provider [phone] Reason for Visit * Reason Comments Med Change Request Encounter Details Date Type Department Care Team (Late Contact Info) Description 01/20/2023 Refill C [facility] [address] [place] [address] Sigrid Avilez MD [address] [place] [address] Type 2 diabetes mellitus without complication, without long-term current use of insulin ([facility]) Social History Tobacco Use Types [...] Upcoming Encounters Date Type Department Care Team ([facility] Contact Info) Description 11/07/2025 10:00 AM EDT Office Visit [facility] [address] [place] [address] Trini Smith, OD [address] [place] [address] documented as of this encounter Visit Diagnoses Diagnosis Type 2 diabetes mellitus without complication, without long-term current use of insulin (HCC) documented in this encounter Additional Health Concerns Assessment Noted Time PHQ-9 Depression Total Score: 0 10/15/19 23 9:23 AM EST documented as of this encounter Care Teams Institutional Cook Relationship Specialty Start Date End Date Sigrid Avilez MD [address] [place] [id number] PCP - General Family Medicine 08/31/18 documented as of this encounter
--- OUTSIDE RECORDS SUMMARY | 2025-08-07 23:36 | XMS_ITS | Encounter Summary ---
Author Organization [employer] Address [address] [place] [address] [address] [place] [address] Care Team Providers Care Contract Management Specialist Name Role Phone Sigrid Avilez MD Primary Care Provider [phone] Reason for Visit * Reason Comments Med Change Request Encounter Details Date Type Department Care Team (Late Contact Info) Description 11/18/2022 Refill C [facility] [address] [place] [address] Sigrid Avilez MD [address] [place] [address] Type 2 diabetes mellitus without complication, without long-term current use of insulin ([facility]) Social History Tobacco Use Types [...] Department Care Team (Late Contact Info) Description 11/07/2025 10:00 AM EDT Office Visit [facility] [address] [place] [address] Trini Smith, OD [address] [place] [address] documented as of this encounter Visit Diagnoses Diagnosis Type 2 diabetes mellitus without complication, without long-term current use of insulin (HCC) documented in this encounter Additional Health Concerns Assessment Noted Time PHQ-9 Depression Total Score: 0 10/15/19 23 9:23 AM EST documented as of this encounter Care Teams Contract Management Specialist Relationship Specialty Start Date End Date Sigrid Avilez MD [address] [place] [id number] PCP - General Family Medicine 08/31/18 documented as of this encounter
--- OUTSIDE RECORDS SUMMARY | 2025-08-07 23:36 | XMS_ITS | Encounter Summary ---
Author Organization [employer] Address [address] [place] [address] Care Team Providers Care Central Aisle Cashier Name Role Phone Sigrid Avilez MD Primary Care Provider [phone] Encounter Details Date Type Department Care Team (Late st Contact Info) Description 03/25/2024 Orders Only [facility] [address] [place], [place] [id number] Provider, MD Ernst Social History Tobacco Use [...] Care Team (Late st Contact Info) Description 11/07/2025 10:00 AM EDT Office Visit [facility] [address] [place] [address] TarkaTrini, OD [address] [place] [address] documented as of this encounter Procedures Procedure [...] documented as of this encounter Care Teams Central Aisle Cashier Relationship Specialty Start Date End Date Sigrid Avilez MD [address] [place] [address] PCP - General Family Medicine 08/31/18 documented as of this encounter
--- OUTSIDE RECORDS SUMMARY | 2025-08-07 23:36 | XMS_ITS | Encounter Summary ---
Author Organization [employer] Address [address] [place] [address] Care Team Providers Care Mechatronics Technician Name Role Phone Sigrid Avilez MD Primary Care Provider [phone] Encounter Details Date Type Department Care Team (Late st Contact Info) Description 12/09/2024 Orders Only [facility] [address] [place], [place] [phone] Provider, MD Ernst Social History Tobacco Use [...] Description 11/07/2025 10:00 AM EDT Office Visit [facility] [address] [place], [place] [phone] TarkaTrini, OD [address] [place] [address] documented as of this encounter Procedures Procedure Name Priority Date/Time Associated Diagnosis Comments CT CHEST WO CONTRAST Routine 12/20/2024 8:25 PM EDT documented in this encounter Results * CT Chest w/o Contrast (12/20/2024 8:25 PM EDT) Anatomical Region Laterality Modality Body, Chest Computed Tomogra phy 12/20/2024 8:25 PM EDT Narrative 12/20/2024 8:27 PM EDT [address] [address] [address] Scan Report Signed Patient: Benny Vásquez MR#: [id number] : 1955 Acct:[id number] Age/Sex: 69 / M ADM Date: 12/16/24 Loc: HO.CT Attending Dr: Lo Quinteros ROLLOFF DRIVER Ordering Physician: Lo Quinteros NP Date of Service: 12/16/24 Procedure(s): CT chest wo IV con Accession Number(s): [id number] cc: Sigrid Avilez MD; Lo Quinteros NP Report Number: [id number]: Total DLP = 91.00 mGy-cm CLINICAL HISTORY: [...] in OV> 12/20/242025 DD/ 24 TD/TT: 12/20/242024 Tape Keller Operator: Procedure Note Donotuseinterpreter, Image - 12/20/[address] [place] [address] [address] Scan Report Signed Patient: Adan Vásquez#: [id number] : 5Acct:[id number] Age/Sex: 69 / MADM Date: 12/16/24 Loc: HO.CT Attending Dr: Lo Quinteros ROLLOFF DRIVER Ordering Physician: Lo Quinteros NP Date of Service: 12/16/24 Procedure(s): CT chest wo IV con Accession Number(s): [id number] cc: Sigrid Avilez MD; Lo Quinteros NP Report Number: [id number]: Total DLP = 91.00 mGy-cm CLINICAL HISTORY: [...] in OV> 12/20/242025 DD/ 24 TD/TT: 12/20/242024 Tape Keller Operator: [facility] External Provider IMG CT PROCEDURES Final Result documented in this encounter Visit Diagnoses Not on filedocumented in this encounter Additional Health Concerns Assessment Noted Time PHQ-9 Depression Total Score: 0 09/28/19 9:18 AM EST documented as of this encounter Care Teams Mechatronics Technician Relationship Specialty Start Date End Date Sigrid Avilez MD [address] [place] [id number] PCP - General Family Medicine 08/31/18 documented as of this encounter
--- OUTSIDE RECORDS SUMMARY | 2025-08-07 23:36 | XMS_ITS | Clinical Summary ---
Author Organization [employer] Address [address] [facility] 7[address] [place] [address] Care Team Providers Care Kayak Maker Name Role Phone Sigrid Avilez MD Primary Care Provider [phone] Allergies Active Allergy Reactions Criticality Noted Date Comments Aspirin Unknown,Rash Low 04/16/2012 Simvastatin Diarrhea 06/23/2024 Medications Cyanocobalamin 1000 MCG capsule Take 1 capsule by mouth in the morning. 021 Active ergocalciferol (Vitamin D-2) 1.25 MG (20739 UT) capsule Take 1 capsule by mouth 1 (one) time per week. 022 Active omega-3 (Fish Oil) 1000 MG capsuleIndicati ons:Newly diagnosed diabetes (HCC) Take 1 capsule orally bid 180 capsule [...] day. OTC Active Lancets (OneTouch Delica Plus [id number]) misc Check sugars twice a day 100 each 11 023 Active triamcinolone (Kenalog) 0.1 % creamIndication s:Rash Apply topically if needed in the morning and at bedtime (pain and swelling). 30 g 023 Active Lancets (OneTouch Delica Plus [id number]) misc CHECK BLOOD SUGAR TWO TIMES A DAY 100 each 11 023 Active albuterol 108 (90 Base) MCG/ACT inhalerIndicati ons:Chronic cough INHALE 2 PUFFS EVERY 6 HOURS IF NEEDED FOR WHEEZING. 18 g 2 024 Active dulaglutide (Trulicity) 0.75 MG/0.5ML solution pen-injector INJECT POR VIA SUBCUTANEA 0.75 MG UNDER THE SKIN 1 TIME PER WEEK. 0.5 mL 024 Active Lancets (OneTouch Delica Plus [id number]) miscIndications :Diabetes mellitus without complication ([facility]) USE TO CHECK BLOOD SUGAR ONCE DAILY 100 each 024 Active losartan (Cozaar) 25 MG tablet Take 1 tablet (25 mg) by mouth Once per day. 90 tablet 3 Active albuterol (Ventolin HFA) 108 (90 Base) [...] daily for 6 days 14 tablet Active levoFLOXacin (Levaquin) 750 MG tablet Take 1 tab orally daily 10 tablet Active Misc. Devices (Pulse Oximeter) miscIndications :ILD (interstitial lung disease) (CMS/HCC) (HCC) Use to check pulse ox prn 1 each 025 Active fluticasone-jewels meterol (Advair) 230-21 MCG/ACT inhaler Inhale 2 puffs in the morning and at bedtime. Rinse mouth with water after use to reduce aftertaste and incidence of candidiasis. Do not swallow. 12 g 11 025 2025 Active rosuvastatin (Crestor) 40 MG tabletIndicatio ns:Newly diagnosed diabetes (HCC) TAKE ONE TABLET BY MOUTH EVERY DAY AT BEDTIME 90 tablet 2 Active pantoprazole (ProtoNix) 20 MG EC tabletIndicatio ns:Newly diagnosed diabetes (HCC) Take 1 tab orally daily 90 tablet 3 Active azelastine (Astelin) 0.1 % nasal spray Administer 1 spray into each nostril 2 times daily. Use in each nostril as directed 30 mL 12 025 2025 Active levocetirizine (Xyzal) 5 MG tablet Use 1 tab orally daily 30 tablet 11 Active Lancets (OneTouch Delica Plus [id number]) misc CHECK BLOOD SUGAR TWO TIMES A DAY 100 each Active amLODIPine (Norvasc) 10 MG tablet TAKE ONE TABLET BY MOUTH EVERY DAY 90 tablet 1 Active OneTouch Ultra Test test stripIndication s:Diabetes mellitus without complication (HCC) USE TO CHECK BLOOD SUGAR TWO TIMES A DAY 100 strip Active Dulaglutide (Trulicity) 0.75 MG/0.5ML solution auto-injector Inject 0.75 mg under the skin 1 (one) time per week. 2 mL 5 025 2024 Active clopidogrel (Plavix) 75 MG tablet TOME 1 TABLETA POR V A ORAL TODOS LOS D FOR 90 DAYS Active Trelegy Ellipta 200-62.5-25 MCG/ACT aerosol powder Inhale 1 puff in the morning. Active guaiFENesin (Mucinex) 600 MG 12 hr tablet Take 2 tablets (1,200 mg) by mouth 2 times daily. Do not crush, chew, or split. 60 tablet 025 2025 Active albuterol (2.5 MG/3ML) 0.083% nebulizer solutionIndicat ions:ILD (interstitial lung disease) (CMS/HCC) (HCC) Take 3 mL (2.5 mg) by nebulization every 6 (six) hours if needed for wheezing. 75 mL 11 025 2025 Active azithromycin (Zithromax) 250 MG tablet Take 2 tabs orally on day 1 then 1 tab orally daily for 4 more days 6 tablet 2024 Discontinued(T herapy completed) albuterol (2.5 MG/3ML) 0.083% nebulizer solutionIndicat ions:ILD (interstitial lung disease) (CMS/HCC) ([facility]) Take 3 mL (2.5 mg) by nebulization every 6 (six) hours if needed for wheezing. 75 mL 11 2024 Discontinued(R eorder (will not trigger notification to Pharmacy)) Trulicity 0.75 MG/0.5ML solution auto-injector INJECT 0.75MG UNDER THE SKIN ONCE A WEEK 2 mL 3 2024 Discontinued codeine 15 MG tabletIndicatio ns:Chronic cough,ILD (interstitial lung disease) (CMS/HCC) ([facility]) Take 1 tablet (15 mg) by mouth every 6 (six) hours if needed for moderate pain for up to 5 days. 20 tablet 2024 acetaminophen-c odeine (Tylenol w/ Codeine #3) 300-30 MG tabletIndicatio ns:Chronic cough,ILD (interstitial lung disease) (CMS/HCC) ([facility]) Take 1 tablet by mouth every 6 (six) hours if needed for severe pain for up to 5 days. 20 tablet 2024 Active Problems Problem Noted Date Diagnosed Date [...] in 4 weeks ILD (interstitial lung disease) ([facility]) 2022 Arthritis of hip 02/02/2018 Idiopathic osteoarthritis 02/02/2018 Chronic superficial gastritis 12/22/2017 Peripheral vascular disease 09/23/2016 Elevated fasting blood sugar 06/13/2014 Asthma 04/16/2012 Depressive disorder 04/16/2012 Gastroesophageal reflux disease 04/16/2012 Hyperlipidemia 04/16/2012 Tobacco dependence syndrome 04/16/2012 Resolved Problems Problem Noted Date Diagnosed Date Resolved Date Diabetes mellitus without complication 10/11/2019 06/23/2024 Newly diagnosed diabetes 11/27/2016 Encounters Date Type Department Care Team Description 08/01/2025 Telephone [facility] [address] [place] [id number] Sigrid Avilez MD ER Follow-up 07/31/2025 Telephone [facility] [address] [place] [address] Sigrid Avilez MD 07/26/2025 9:00 AM EST Office Visit [facility] [address] [place] [address] Sigrid Avilez MD Chronic cough (Primary Dx); 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, without long-term current use of insulin ([facility]); ILD (interstitial lung disease) ([facility]) ([facility]); Encounter for immunization; Persistent hoarseness 07/26/2025 Orders Only [facility] [address] [place] [address] Sigrid Avilez MD Chronic cough (Primary Dx); ILD (interstitial lung disease) ([facility]) (HCC) 07/26/2025 Telephone [facility] [address] [place] [phone] Sigrid Avilez MD alternative medication 07/26/2025 Travel 07/25/2025 Telephone [facility] [address] [place] [address] Sigrid Avilez MD Chart Prep 07/18/2025 Orders Only [facility] External Provider, [facility] 07/10/2025 Refill [facility] [address] [place] [address] Claudia Peñaloza MD 05/22/2025 Orders Only [facility] [address] [place] [address] Sigrid Avilez MD 05/22/2025 Results Follow-Up [facility] [address] [place] [address] Abdomen Pelvis w/ Contrast from Last 3 Months Immunizations Immunization Administration Dates Next Due Influenza High-dose Quadriva lent Preservative Free 07/09/2023 Influenza Injectable Quadriv alant Preservative Free IIV4 MDCK 07/22/2021 Influenza injectable quadriv alent IIV4 with preservative 07/12/2019,06/02/2018,06/25/2017,06/25 Influenza injectable quadriv alent preservative free 07/22/2021,05/23/2020,09/20/2015 Influenza, High Dose Seasona l, Preservative Free 07/26/2025 Influenza, IIV3, injectable 06/30/2014 Influenza, Split (incl. [...] Sign Reading Time Taken Comments Blood Pressure 122/50 07/26/2025 9:17 AM EST Pulse 84 07/26/2025 9:17 AM EST Temperature 36.6 C (97.9 F) 07/26/2025 9:17 AM EST Respiratory Rate 24 07/26/2025 9:17 AM EST Oxygen Saturation 99% 01/04/2025 9:11 AM EDT Inhaled Oxygen Concentration - - Weight 57.6 kg (127 lb) 07/26/2025 9:17 AM EST Height 157.5 cm (5' 2 ) 01/04/2025 9:11 AM EDT Body Mass Index 23.23 01/04/2025 9:11 AM EDT Plan of Treatment Upcoming Encounters Date Type Department Care Team (Late st Contact Info) Description 11/07/2025 10:00 AM EDT Office Visit [facility] [address] [place] [address] Trini Smith, OD [address] [place] [address] Health Maintenance Due Date Last Done Comments CT Colonography 1955 Colonoscopy 1955 FIT 1955 Sigmoidoscopy 1955 Hepatitis C Screening 1973 RSV Patients and Patients Aged 60 years or older (1 - Risk 50-74 years 1-dose series) 2005 FOBT 08/14/2024 08/14/2023 Lipid Panel 03/28/2025 03/28/2024, 120 05/2022, 11/27/2021 COVID-19 Vaccine ( season) 2025 09/28/2024, 07/18/2021, 11/23/2020, Additional history exists Alcohol/Substance Use Screening 09/28/2025 09/28/2024 Depression Screening 09/28/2025 09/28/2024, 09/28/19 25 Diabetes: Urine Protein Screening 09/28/2025 09/28/2024, 11/27/2021, 10/11/2019 SDOH Screening 09/28/2025 09/28/2024 Diabetes: Hemoglobin A1C 10/26/2025 025, 04/06/2025, 01/04/2025, Additional history exists Diabetes: Foot Exam 04/06/2026 04/06/2025, 04/06/2025, 04/06/2025, Additional history exists Eye Exam 06/23/2026 06/23/2024, 06/01, 06/23/2024, Additional history exists DTaP/Tdap/Td Vaccines (3 - Td or Tdap) 06/25/2026 06/25/2016, 07/13/1997 Tobacco Screening 07/26/2026 07/26/2025 Colorectal Cancer Screening 08/14/2026 FIT DNA/Cologuard 08/14/2026 08/14/2023 Zoster Vaccines Completed 09/15/2023, 07/09/2023 Pneumococcal Vaccine: 50+ Years Completed 03/24/2024, 09/12/1996 Influenza Vaccine Completed 07/26/2025, , 07/09/2023, Additional history exists HIB Vaccines Aged Out [...] on patient's age to complete this topic Goals Goal Patient Goal Type Associated Problems Recent Progress Patient-Stated? Author Help patients manage their type 2 diabetes Care Plan Help patients manage their type 2 diabetes No Anna Juan MA Weekly blood pressure task Care Plan Weekly blood pressure task No Anna Juan MA Help patients manage their type 2 diabetes Care Plan Help patients manage their type 2 diabetes No Anna Juan MA Patient has chronic kidney disease Care Plan Patient has chronic kidney disease No Anna Juan MA Weekly blood pressure task Care Plan Weekly blood pressure task No Anna Juan MA Patient has chronic kidney disease Care Plan Patient has chronic kidney disease No Anna Juan MA Weekly blood pressure task Care Plan Weekly blood pressure task No Sigrid Avilez MD Weekly blood pressure task Care Plan Weekly blood pressure task No Sigrid Avilez MD Patient has chronic kidney disease Care Plan Patient has chronic kidney disease No Sigrid Avilez MD Patient has chronic kidney disease Care Plan Patient has chronic kidney disease No Sigrid Avilez MD Weekly blood pressure task Care Plan Weekly blood pressure task No Deb Miles Weekly blood pressure task Care Plan Weekly blood pressure task No Deb Miles Patient has chronic kidney disease Care Plan Patient has chronic kidney disease No Deb Miles Patient has chronic kidney disease Care Plan Patient has chronic kidney disease No Deb Miles Weekly blood pressure task Care Plan Weekly blood pressure task No Sigrid Avilez MD Weekly blood pressure task Care Plan Weekly blood pressure task No Sigrid Avilez MD Patient has chronic kidney disease Care Plan Patient has chronic kidney disease No Sigrid Avilez MD Patient has chronic kidney disease Care Plan Patient has chronic kidney disease No Sigrid Avilez MD Weekly blood pressure task Care Plan Weekly blood pressure task No Devon Halle, HEAD MACHINIST Weekly blood pressure task Care Plan Weekly blood pressure task No Devon Halle, HEAD MACHINIST Patient has chronic kidney disease Care Plan Patient has chronic kidney disease No Devon Halle HEAD MACHINIST Patient has chronic kidney disease Care Plan Patient has chronic kidney disease No Devon Halle, HEAD MACHINIST Weekly blood pressure task Care Plan Weekly blood pressure task No Devon Halle, HEAD MACHINIST Weekly blood pressure task Care Plan Weekly blood pressure task No Devon Halle HEAD MACHINIST Patient has chronic kidney disease Care Plan Patient has chronic kidney disease No Devon Halle, HEAD MACHINIST Patient has chronic kidney disease Care Plan Patient has chronic kidney disease No Devon Halle, HEAD MACHINIST Weekly blood pressure task Care Plan Weekly blood pressure task No Mario Juan Weekly blood pressure task Care Plan Weekly blood pressure task No Mario Juan Patient has chronic kidney disease Care Plan Patient has chronic kidney disease No Mario Juan Patient has chronic kidney disease Care Plan Patient has chronic kidney disease No Mario Juan Procedures Procedure Name Priority Date/Time Associated Diagnosis Comments POCT GLYCATED HEMOGLOBIN, TOTAL Routine 07/26/2025 9:35 AM EST Chronic cough 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, without long-term current use of insulin (HCC) POCT GLUCOSE Routine 07/26/2025 9:35 AM EST Chronic cough 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, without long-term current use of insulin (HCC) CT CHEST WO CONTRAST Routine 07/18/2025 4:30 PM EST POCT CREATININE GFR Routine 05/22/2025 9 :[address] ABDOMEN PELVIS W CONTRAST Urgent 05/22/2025 8:59 AM EDT RLQ abdominal pain ALBUMIN, RANDOM URINE W/CREATININE Routine 09/28/2024 10:16 AM EST Encounter for immunization Diabetes mellitus without complication (CMS/HCC) LIPID PANEL, STANDARD Routine 03/28/2024 9:15 AM EDT Diabetes mellitus without complication (CMS/HCC) LAB COLOGUARD COLON CANCER SCREEN Routine 08/14/2023 9:00 AM EST Colon cancer screening from Last 3 Months or Most Recently Relevant to Health Maintenance Results * (ABNORMAL) POCT Hgb A1c (07/26/2025 9:35 AM EST) Hemoglobin A1C 7.3(A) 4.0 - 5.7 % Blood 07/26/2025 9:35 AM EST Sigrid Avilez MD POINT OF CARE TEST ENTER/EDIT ORDERABLES Final Result * POCT Glucose (07/26/2025 9:35 AM EST) Glucose Blood, POC 144 60 - 200 mg/dL Blood Capillary blood specimen / Unknown 07/26/2025 9:35 AM EST Sigrid Avilez MD POINT OF CARE TEST ENTER/EDIT ORDERABLES Final Result * CT Chest w/o Contrast (07/18/2025 4:30 PM EST) Anatomical Region Laterality Modality Body, Chest Computed Tomogra phy 07/18/2025 4:30 PM EST Narrative 07/19/2025 8:50 AM EST [address] [address] [address] Scan Report Signed Patient: Benny Vásquez MR#: [id number] : 1955 Acct:[id number] Age/Sex: 69 / M ADM Date: 07/18/25 Loc: HO.CT Attending Dr: Lo Quinteros NP Ordering Physician: Lo Quinteros NP Date of Service: 07/18/25 Procedure(s): CT chest wo IV con Accession Number(s): [id number] cc: Sigrid Avilez MD; Lo Quinteros NP Report Number: [id number]: Total DLP = 99.00 mGy-cm Reason for Exam: J84.9 - Interstitial pulmonary disease, unspecified EXAMINATION: CT CHEST WITHOUT CONTRAST CLINICAL INFORMATION: Chronic interstitial lung disease, follow-up from 12/16/2024. COMPARISON: CT chest 12/16/2024. TECHNIQUE: Multidetector volumetric CT imaging of the chest was done. Axial MIP volume rendering provided. Sagittal and coronal reformatted images were obtained. This CT examination was performed using dose optimization techniques as appropriate, variously including the following: *Automated exposure control *Adjustment of mA and/or kV according to patient size (this includes techniques or standardized protocols for targeted exams where dose is matched to indication/reason for exam; i.e. extremities or head) *Use of iterative reconstruction technique FINDINGS: LUNGS: Redemonstration of diffuse interstitial pulmonary disease with honeycombing and fibrosis in the bilateral subpleural lower lobes. Overall appearance is quite similar to the prior exam with perhaps minimal progression in the subpleural zones of both lungs. There is associated groundglass attenuation in the subpleural lower lobes bilaterally, suggesting ongoing/continuing lung injury. Previously seen groundglass attenuation/opacities in the right upper lobe has resolved, likely indicating a resolved infectious or inflammatory process. Traction bronchiectasis in both lower lobes, the right middle lobe and lingula, and to a lesser degree the upper lobes. No suspicious pulmonary nodules are present within the confines of extensive background lung disease. There are scattered calcified granulomata present. No acute consolidative process is present. There is mild peribronchovascular interstitial thickening, in keeping with fibrotic lung disease. There is no pleural effusion. There is no pneumothorax. MEDIASTINUM: The thyroid is diminutive. Heart size is normal. No pericardial effusion. There are similar mediastinal lymph nodes present, for example a right paratracheal node measures 1.4 cm in short axis (series 5, image 18). A subcarinal lymph node measures 1.4 cm in short axis (series 5, image 27). There are smaller prevascular and AP window lymph nodes present. These are likely in keeping with the inflammatory process within the lungs. No significant change from the prior exam. The aorta is normal in caliber with mild atheromatous calcification. There is no aneurysm. The main pulmonary artery is normal in size. The central airways are patent. The esophagus is mildly patulous, similar to the prior exam. CORONARY ARTERY CALCIFICATION: Mild. AXILLA/CHEST WALL: No lymphadenopathy is present. There is mild bilateral male gynecomastia. UPPER ABDOMEN: There has been a cholecystectomy. There is a granuloma in the dome of the right hepatic lobe. There is mild atrophy of the pancreas. OSSEOUS STRUCTURES: There is no suspicious lytic or blastic bone lesion present. There are mild to moderate degenerative changes throughout the thoracic spine with flowing anterior disc osteophytes. CT/CT chest wo IV con IMPRESSION: 1. Slight progression of fibrotic interstitial pulmonary disease, with most severe disease in the lung bases including subpleural honeycombing, bronchiectasis, and parenchymal distortion. Associated subtle groundglass opacity in the subpleural lower lobes is likely in keeping with ongoing lung injury. Overall findings are most likely in keeping with UIP versus fibrotic lung disease due to underlying systemic inflammatory disease. 2. Previously seen groundglass opacities/attenuation in the right upper lobe have resolved. No acute lung disease is currently identified. 3. Stable mediastinal lymphadenopathy, in keeping with reactive etiology. 4. Ancillary findings as discussed in the body of the report. Electronically signed by: Jose Pedroza MD 07/19/2025 08:47 AM EST Dictated By: Jose Pedroza MD Signed By: <Electronically signed by Jose Pedroza MD in OV> 07/19/25 0847 DD/ 1630 TD/TT: 07/18/25 1709 Neurology Nurse: Procedure Note Donotuseinterpreter, Image - 07/19/[address] [address] [address] Scan Report Signed Patient: Adan Vásquez#: [id number] : 5Acct:[id number] Age/Sex: 69 / MADM Date: 07/18/25 Loc: HO.CT Attending Dr: Lo Quinteros NP Ordering Physician: Lo Quinteros NP Date of Service: 07/18/25 Procedure(s): CT chest wo IV con Accession Number(s): [id number] cc: Sigrid Avilez MD; Lo Quinteros NP Report Number: [id number]: Total DLP = 99.00 mGy-cm Reason for Exam: J84.9 - Interstitial pulmonary disease, unspecified EXAMINATION: CT CHEST WITHOUT CONTRAST CLINICAL INFORMATION: Chronic interstitial lung disease, follow-up from 12/16/2024. COMPARISON: CT chest 12/16/2024. TECHNIQUE: Multidetector volumetric CT imaging of the chest was done. Axial MIP volume rendering provided. Sagittal and coronal reformatted images were obtained. This CT examination was performed using dose optimization techniques as appropriate, variously including the following: *Automated exposure control *Adjustment of mA and/or kV according to patient size (this includes techniques or standardized protocols for targeted exams where dose is matched to indication/reason for exam; i.e. extremities or head) *Use of iterative reconstruction technique FINDINGS: LUNGS: Redemonstration of diffuse interstitial pulmonary disease with honeycombing and fibrosis in the bilateral subpleural lower lobes. Overall appearance is quite similar to the prior exam with perhaps minimal progression in the subpleural zones of both lungs. There is associated groundglass attenuation in the subpleural lower lobes bilaterally, suggesting ongoing/continuing lung injury. Previously seen groundglass attenuation/opacities in the right upper lobe has resolved, likely indicating a resolved infectious or inflammatory process. Traction bronchiectasis in both lower lobes, the right middle lobe and lingula, and to a lesser degree the upper lobes. No suspicious pulmonary nodules are present within the confines of extensive background lung disease. There are scattered calcified granulomata present. No acute consolidative process is present. There is mild peribronchovascular interstitial thickening, in keeping with fibrotic lung disease. There is no pleural effusion. There is no pneumothorax. MEDIASTINUM: The thyroid is diminutive. Heart size is normal. No pericardial effusion. There are similar mediastinal lymph nodes present, for example a right paratracheal node measures 1.4 cm in short axis (series 5, image 18). A subcarinal lymph node measures 1.4 cm in short axis (series 5, image 27). There are smaller prevascular and AP window lymph nodes present. These are likely in keeping with the inflammatory process within the lungs. No significant change from the prior exam. The aorta is normal in caliber with mild atheromatous calcification. There is no aneurysm. The main pulmonary artery is normal in size. The central airways are patent. The esophagus is mildly patulous, similar to the prior exam. CORONARY ARTERY CALCIFICATION: Mild. AXILLA/CHEST WALL: No lymphadenopathy is present. There is mild bilateral male gynecomastia. UPPER ABDOMEN: There has been a cholecystectomy. There is a granuloma in the dome of the right hepatic lobe. There is mild atrophy of the pancreas. OSSEOUS STRUCTURES: There is no suspicious lytic or blastic bone lesion present. There are mild to moderate degenerative changes throughout the thoracic spine with flowing anterior disc osteophytes. CT/CT chest wo IV con IMPRESSION: 1. Slight progression of fibrotic interstitial pulmonary disease, with most severe disease in the lung bases including subpleural honeycombing, bronchiectasis, and parenchymal distortion. Associated subtle groundglass opacity in the subpleural lower lobes is likely in keeping with ongoing lung injury. Overall findings are most likely in keeping with UIP versus fibrotic lung disease due to underlying systemic inflammatory disease. 2. Previously seen groundglass opacities/attenuation in the right upper lobe have resolved. No acute lung disease is currently identified. 3. Stable mediastinal lymphadenopathy, in keeping with reactive etiology. 4. Ancillary findings as discussed in the body of the report. Electronically signed by: Jose Pedroza MD 07/19/2025 08:47 AM EST Dictated By: Jose Pedroza MD Signed By: <Electronically signed by Jose Pedroza MD in OV> 07/19/25 0889 DD/ 1630 TD/TT: 07/18/25 1709 Neurology Nurse: [facility] External Provider IMG CT PROCEDURES Edited Result - Final * POCT Creatinine GFR (05/22/2025 9:08 AM EDT) POCT Creatinine 0.8 0.5 - 1.4 mg/dL [facility] GFR POC >60 [facility] Comment:Chronic Kidney Disea se: Estimated GFR < 60 mL/min/[id number] Kidney Disease: Estimated GFR < 15 mL/min/1.73m2 05/22/2025 9:08 AM EDT 05/22/2025 4:55 PM EDT Narrative [facility] - 05/22/2025 4:56 PM EDT [id number] Sigrid Avilez MD LAB POINT OF CARE TEST DOCKED DEVICE ORDERABLES Final Result Performing Organization Address City/State/[facility] Co de Phone Number [facility] [address] [place] [address] [phone] * CT Abdomen Pelvis w/ Contrast (05/22/2025 8:59 AM EDT) Anatomical Region Laterality Modality Body, Pelvis, Abdomen Computed T omography 05/22/2025 8:59 AM EDT Narrative 05/22/2025 10:21 AM EDT [place] [address] [address] Scan Report Signed with Addenda Patient: Benny Vásquez MR#: [id number] 8200 : 1955 Acct:[id number] Age/Sex: 69 / M ADM Date: 05/22/25 Loc: HO.CT Attending Dr: Sigrid Avilez MD Ordering Physician: Sigrid Avilez MD Date of Service: 05/22/25 Procedure(s): CT abdomen pelvis w IV con Accession Number(s): [id number] cc: Sigrid Avilez MD Report Number: [id number]: Total DLP = 237.00 mGy-cm Reason for Exam: reccurent abdominal pain ADDENDUM ADDENDUM #1 Addendum: IMPRESSION: UIP pattern in the lung bases has progressed since the prior and raises suspicion for interstitial lung disease. Electronically signed by: Julio Bernard MD 05/22/2025 11:26 AM EDT Addendum Dictated By: Julio Bernard MD Addendum Signed By: <Electronically signed by Julio Bernard MD in OV> 05/22/25 1126 Addendum Cosigned By: DD/ TD/TT: 05/22/25 EXAMINATION: CT ABDOMEN AND PELVIS WITH CONTRAST CLINICAL INFORMATION: Recurrent abdominal pain COMPARISON: 09/24/2015 TECHNIQUE: Multidetector volumetric images were obtained from the superior aspect of the liver through the pubic symphysis following administration 85 mL of Omnipaque 350 intravenous contrast. Sagittal and coronal reformatted images were obtained on the technologist's workstation. Oral contrast: [address] examination was performed using dose optimization techniques as appropriate, variously including the following: *Automated exposure control *Adjustment of mA and/or kV according to patient size (this includes techniques or standardized protocols for targeted exams where dose is matched to indication/reason for exam; i.e. extremities or head) *Use of iterative reconstruction technique FINDINGS: LUNG BASES: Lung bases demonstrate honeycombing, right greater than left side. There is also mild bronchiectasis and patchy groundglass densities with interlobular septal thickening. This is increased since the prior. LIVER, GALLBLADDER, AND BILIARY TREE: There is chronic coarse calcification in the dome of the liver. Gallbladder surgically absent. There are clips in the gallbladder fossa. PANCREAS: Unremarkable. SPLEEN: Unremarkable. ADRENAL GLANDS: Unremarkable. KIDNEYS AND URETERS: There is pelvocaliectasis. There are no stones. No other abnormalities are noted. BLADDER: The bladder is incompletely distended. It demonstrates mild thickening of the wall anteriorly more than posteriorly. GASTROINTESTINAL TRACT: There is moderate stool throughout the colon. The appendix is within normal limits. There are a few pseudodiverticula at the junction of descending and sigmoid colon without inflammatory changes. ABDOMINAL WALL: No significant hernia is appreciated. LYMPH NODES: Normal. VASCULAR: Moderate atherosclerotic calcification is present PELVIC VISCERA: Unremarkable. OSSEOUS STRUCTURES: There are flowing osteophytes or syndesmophytes in the lower thoracic spine. Mild degenerative changes are present in the lumbar spine. There are moderate-sized osteophytes involving acetabular roofs. There is bony fusion across the SI joints bilaterally. CT/CT abdomen pelvis w IV con IMPRESSION: There is no gallbladder wall thickening raising question of cystitis. Focal area of diverticulosis involving junction of descending and sigmoid colon without evidence of acute inflammation. Suspected syndesmophytes in the lower thoracic spine and fusion of SI joints raises suspicion of ankylosing spondylitis. Fleischner guidelines were followed. Electronically signed by: Julio Bernard MD 05/22/2025 10:19 AM EDT RP Dictated By: Julio Bernard MD Signed By: <Electronically signed by Julio Bernard MD in OV> 05/22/25 1019 DD/ TD/TT: 05/22/2558 Neurology Nurse: Procedure Note Donotuseinterpreter, Image - 05/22/[address] [place] [address] Scan Report Signed with Addenda Patient: Adan Vásquez#: [id number] 8200 : 5Acct:[id number] Age/Sex: 69 / MADM Date: 05/22/25 Loc: HO.CT Attending Dr: Sigrid Avilez MD Ordering Physician: Sigrid Avilez MD Date of Service: 05/22/25 Procedure(s): CT abdomen pelvis w IV con Accession Number(s): [id number] cc: Sigrid Avilez MD Report Number: [id number]: Total DLP = 237.00 mGy-cm Reason for Exam: reccurent abdominal pain ADDENDUM ADDENDUM #1 Addendum: IMPRESSION: UIP pattern in the lung bases has progressed since the prior and raises suspicion for interstitial lung disease. Electronically signed by: Julio Bernard MD 05/22/2025 11:26 AM EDT RP Addendum Dictated By: Julio Bernard MD Addendum Signed By: <Electronically signed by Julio Villaseñor MD in OV> 05/22/25 112 Addendum Cosigned By: DD/ TD/TT: 05/22/25 EXAMINATION: CT ABDOMEN AND PELVIS WITH CONTRAST CLINICAL INFORMATION: Recurrent abdominal pain COMPARISON: 09/24/2015 TECHNIQUE: Multidetector volumetric images were obtained from the superior aspect of the liver through the pubic symphysis following administration 85 mL of Omnipaque 350 intravenous contrast. Sagittal and coronal reformatted images were obtained on the technologist's workstation. Oral contrast: [address] examination was performed using dose optimization techniques as appropriate, variously including the following: *Automated exposure control *Adjustment of mA and/or kV according to patient size (this includes techniques or standardized protocols for targeted exams where dose is matched to indication/reason for exam; i.e. extremities or head) *Use of iterative reconstruction technique FINDINGS: LUNG BASES: Lung bases demonstrate honeycombing, right greater than left side. There is also mild bronchiectasis and patchy groundglass densities with interlobular septal thickening. This is increased since the prior. LIVER, GALLBLADDER, AND BILIARY TREE: There is chronic coarse calcification in the dome of the liver. Gallbladder surgically absent. There are clips in the gallbladder fossa. PANCREAS: Unremarkable. SPLEEN: Unremarkable. ADRENAL GLANDS: Unremarkable. KIDNEYS AND URETERS: There is pelvocaliectasis. There are no stones. No other abnormalities are noted. BLADDER: The bladder is incompletely distended. It demonstrates mild thickening of the wall anteriorly more than posteriorly. GASTROINTESTINAL TRACT: There is moderate stool throughout the colon. The appendix is within normal limits. There are a few pseudodiverticula at the junction of descending and sigmoid colon without inflammatory changes. ABDOMINAL WALL: No significant hernia is appreciated. LYMPH NODES: Normal. VASCULAR: Moderate atherosclerotic calcification is present PELVIC VISCERA: Unremarkable. OSSEOUS STRUCTURES: There are flowing osteophytes or syndesmophytes in the lower thoracic spine. Mild degenerative changes are present in the lumbar spine. There are moderate-sized osteophytes involving acetabular roofs. There is bony fusion across the SI joints bilaterally. CT/CT abdomen pelvis w IV con IMPRESSION: There is no gallbladder wall thickening raising question of cystitis. Focal area of diverticulosis involving junction of descending and sigmoid colon without evidence of acute inflammation. Suspected syndesmophytes in the lower thoracic spine and fusion of SI joints raises suspicion of ankylosing spondylitis. Fleischner guidelines were followed. Electronically signed by: Julio Bernard MD 05/22/2025 10:19 AM EDT RP Dictated By: Julio Bernard MD Signed By: <Electronically signed by Julio Bernard MD in OV> 05/22/25 1019 DD/ 0859 TD/TT: 05/22/25 0958 Neurology Nurse: Sigrid Avilez MD IMG CT PROCEDURES Edited Resu lt - Final * (ABNORMAL) Albumin, Random Urine W/Creatinine (09/28/2024 10:16 AM EST) Creatinine, Urine 177.21 mg/dL [facility] Microalbumin Urine 54.0 mg/L H [facility] Microalbum Creatinine Ratio Ur 30.4(H) <30 ug/mg cr [facility] Comment:Albumin/Creatinine R atio Reference Ranges: Normal: < 30 ug/mg creatinine Microalbuminuria: 30 - 300 ug/mg creatinineClinical Albuminuria: > 300 ug/mg creatinine Urine (Urine, Random) 09/28/2024 10:16 AM EST 09/28/2024 2:31 PM EST Sigrid Avilez MD LAB URINE ORDERABLES Final Re sult [facility] [address] [place] [address] [phone] * Lipid Panel, Standard (03/28/2024 9:15 AM EDT) Triglycerides 84 <150 mg/dL [facility] Comment:Desirable Triglyceri de: less than 150 mg/dLBorderline High Triglyceride 150-199 mg/dLHigh Triglyceride: 200-499 mg/dLVery High Triglyceride: greater than or equal to 5OO mg/dL Cholesterol 133 <200 mg/dL [facility] Comment:Desirable Cholestero l: less than 200 mg/dLBorderline High Cholesterol: 200-239 mg/dLHigh Cholesterol: greater than 239 mg/dL LDL Cholesterol Calculated 61 <100 mg/dL [facility] Comment:Desirable LDL: less than 100 mg/dLNear Optimal/Above Optimal LDL: 110- 129 mg/dLBorderline High LDL: 130-159 mg/dLHigh LDL: 160-189 mg/dLVery High LDL: greater than or equal to 190 mg/dL HDL Cholesterol 56 >40 mg/dL [facility] Comment:Desirable HDL: great er than 40 mg/dL Note: This HDL assay may give artificially low results in patients with liver disease. Blood Venous blood specimen / Unknown 03/28/2024 9:15 AM EDT 03/28/2024 2:13 PM EDT us Sigrid Avilez MD LAB BLOOD ORDERABLES Final Re sult [facility] [address] [place] [address] [phone] * Cologuard?? colon cancer screening (08/14/2023 9:00 AM EST) Cologuard Result Negative Negative 08/21/20 5:50 PM EST [facility] (CLIA #:[id number]) Comment: NEGATIVE TEST RESULT. A negative Cologuard [...] (Bony Hatfield al, N Engl J Med 2014;370(14):1461-5319) The normal value (reference range) for this assay is negative. COLOGUARD RE-SCREENING RECOMMENDATION: Periodic colorectal cancer screening is an important part of preventive healthcare for asymptomatic individuals at average risk for colorectal cancer. Following a negative Cologuard result, the [employer] and U.S. Multi-Society Task Force screening guidelines recommend a Cologuard re-screening interval of 3 years. References: [place] [employer] Guideline for Colorectal Cancer Screening: https://www.cancer.org/cancer/yynok-ekfnjn-vekqvd/ablzfgfdv-bcabpgsmb-wgiydal/ac s-rec ommendations.html.; Hernandez DK, Antonino CR, Jessica FosterK, Colorectal Cancer Screening: Recommendations for Physicians and Patients from the U.S. Multi-Society Task Force on Colorectal Cancer Screening , Am J Gastroenterology 2017; 112:1484-3608. TEST DESCRIPTION: Composite algorithmic analysis of stool [...] (Bony Hatfield al, N Engl J Med 2014;370(14):9261-7240.) Cologuard may produce a false negative or false positive result (no colorectal cancer or precancerous polyp present at colonoscopy follow up). A negative Cologuard test result does not guarantee the absence of CRC or advanced adenoma (pre-cancer). The current Cologuard screening interval is every 3 years. ([place] [employer] and U.S. Multi-Society Task Force). Cologuard performance data in a 10,000 patient pivotal study using colonoscopy as the reference method can be accessed at the following location: www.[employer]/results. Additional description of the Cologuard test process, warnings and precautions can be found at www.Dlyte.comrd.com. Stool specimen (specimen) 08/14/2023 9:00 AM EST 08/17/2023 1:58 PM EST us Sigird Avilez MD LAB MOLECULAR DIAGNOSTICS ORD ERABLES Final Result [facility] (CLIA #:[id number]) [address] [place] [address], from Last 3 Months or Most Recently Relevant to Health Maintenance Additional Health Concerns Active Problems Noted Date Diagnosed Date Help patients manage their type 2 diabetes 07/25 Weekly blood pressure task 07/25/2025 Help patients manage their type 2 diabetes 07/25 Patient has chronic kidney disease 07/25/2025 Weekly blood pressure task 07/25/2025 Patient has chronic kidney disease 07/25/2025 Weekly blood pressure task 07/26/2025 Weekly blood pressure task 07/26/2025 Patient has chronic kidney disease 07/26/2025 Patient has chronic kidney disease 07/26/2025 Weekly blood pressure task 07/26/2025 Weekly blood pressure task 07/26/2025 Patient has chronic kidney disease 07/26/2025 Patient has chronic kidney disease 07/26/2025 Weekly blood pressure task 07/26/2025 Weekly blood pressure task 07/26/2025 Patient has chronic kidney disease 07/26/2025 Patient has chronic kidney disease 07/26/2025 Weekly blood pressure task 07/31/2025 Weekly blood pressure task 07/31/2025 Patient has chronic kidney disease 07/31/2025 Patient has chronic kidney disease 07/31/2025 Weekly blood pressure task 07/31/2025 Weekly blood pressure task 07/31/2025 Patient has chronic kidney disease 07/31/2025 Patient has chronic kidney disease 07/31/2025 Weekly blood pressure task 08/01/2025 Weekly blood pressure task 08/01/2025 Patient has chronic kidney disease 08/01/2025 Patient has chronic kidney disease 08/01/2025 Insurance [facility] [employer] (HMO D-SNP) T[employer]NER STEPHEN [id number] Care Teams Kayak Maker Relationship Specialty Start Date End Date Sigrid Avilez MD [address] [facility] [place] [address] PCP - General Family Medicine 08/31/18
--- OUTSIDE RECORDS SUMMARY | 2025-08-07 23:36 | XMS_ITS | Encounter Summary ---
Author Organization [employer] Address [address] [facility] 7t [place] [address] Care Team Providers Care General Studies Program Chair Name Role Phone Sigrid Avilez MD Primary Care Provider [phone] Reason for Visit * Reason Onset Date Comments ER Follow-up 08/01/2025 Encounter Details Date Type Department Care Team (Late st Contact Info) Description 08/01/2025 Telephone [facility] MEDICINE [address] [place] [address] Sigrid Avilez MD [address] [place] [address] ER Follow-up Social History Tobacco Use Types Packs/Day Years [...] Telephone Encounter - Charisse Edmonds RN - 08/03/2025 2:18 PM EST TC to patient daughter for status check and schedule ER FU. No answer. No voicemail to leave a message. * Telephone Encounter - Mario Juan - 08/01/2025 2:00 PM EST Patient calling to report ED visit on : Date: 07/31/25 Hospital: [facility] Seen for: Asthma Attack Symptomatic No Please contact Daughter at [phone]. documented in this encounter Plan of Treatment Upcoming Encounters Date Type Department Care Team (Late st Contact Info) Description 11/07/2025 10:00 AM EDT Office Visit [facility] OPTOMETRY [address] [place] [address] Trini Smith OD [address] [place] [address] documented as of this encounter Goals Goal Patient Goal Type Associated Problems Recent Progress Patient-Stated? Author Help patients manage their type 2 diabetes Care Plan Help patients manage their type 2 diabetes Anna Vaughn MA Weekly blood pressure task Care Plan [...] Care Plan Weekly blood pressure task No Halle Osorio LPN Weekly blood pressure task Care Plan Weekly blood pressure task No Halle Osorio LPN Patient has chronic kidney disease Care Plan Patient has chronic kidney disease No Halle Osorio LPN Patient has chronic kidney disease Care Plan Patient has chronic kidney disease No Halle Osorio LPN Weekly blood pressure task Care Plan Weekly blood pressure task No Halle Osorio LPN Weekly blood pressure task Care Plan Weekly blood pressure task No Halle Osorio LPN Patient has chronic kidney disease Care Plan Patient has chronic kidney disease No Halle Osorio LPN Patient has chronic kidney disease Care Plan Patient has chronic kidney disease No Halle Osorio LPN Weekly blood pressure task Care Plan Weekly blood pressure task No Mario Juan Weekly blood pressure task Care Plan Weekly blood pressure task No DrakeJoshuaMario Patient has chronic kidney disease Care Plan Patient has chronic kidney disease No Mario Juan Patient has chronic kidney disease Care Plan Patient has chronic kidney disease No Mario Juan documented as of this encounter Visit Diagnoses Not on filedocumented in this encounter Additional Health Concerns Active Problems Noted Date [...] 08/01/2025 Patient has chronic kidney disease 08/01/2025 Assessment Noted Time PHQ-9 Depression Total Score: 0 09/28/19 25 9:18 AM EST documented as of this encounter Care Teams General Studies Program Chair Relationship Specialty Start Date End Date Sigrid Avilez MD [address] [place] [address] PCP - General Family Medicine 08/31/18 documented as of this encounter
--- OUTSIDE RECORDS SUMMARY | 2025-08-07 23:36 | XMS_ITS | Encounter Summary ---
Author Organization [employer] Address [address] [place] [address] 7t [place] [address] Care Team Providers Care Sheet Cutting Operator Name Role Phone Sigrid Avilez MD Primary Care Provider [phone] Reason for Visit * Reason Comments Med Change Request Encounter Details Date Type Department Care Team (Late Contact Info) Description 11/18/2022 Refill [facility] [address] [place] [address] Sigrid Avilez MD [address] [place] [address] Type 2 diabetes mellitus without complication, without long-term current use of insulin ([facility]) Social History Tobacco Use Types [...] Description 11/07/2025 10:00 AM EDT Office Visit [facility] OPTOMETRY [address] [place] [address] Trini Smith, OD [address] [place] [address] documented as of this encounter Visit Diagnoses Diagnosis Type 2 diabetes mellitus without complication, without long-term current use of insulin (HCC) documented in this encounter Additional Health Concerns Assessment Noted Time PHQ-9 Depression Total Score: 0 10/15/19 23 9:23 AM EST documented as of this encounter Care Teams Sheet Cutting Operator Relationship Specialty Start Date End Date Sigrid Avilez MD [address] [place] [phone] PCP - General Family Medicine 08/31/18 documented as of this encounter
--- OUTSIDE RECORDS SUMMARY | 2025-08-07 23:36 | XMS_ITS | Encounter Summary ---
Author Organization [employer] Address [address] [facility] 7t [place] [address] Care Team Providers Care Director Targeted Marketing Name Role Phone Sigrid Avilez MD Primary Care Provider [phone] Encounter Details Date Type Department Care Team (Late Contact Info) Description 11/20/2022 Telephone [facility] MED[facility]INE [address] [place], [place] [phone] Sigrid Avilez MD [address] [place], [place] [phone] Social History Tobacco Use Types Packs/Day Years [...] Encounters Date Type Department Care Team ([facility] Contact Info) Description 11/07/2025 10:00 AM EDT Office Visit [facility] OPTOMETRY [address] [place] [address] Trini Smith, OD [address] [place] [address] documented as of this encounter Visit Diagnoses Not on filedocumented in this encounter Additional Health Concerns Assessment Noted Time PHQ-9 Depression Total Score: 0 10/15/19 23 9:23 AM EST documented as of this encounter Care Teams Director Targeted Marketing Relationship Specialty Start Date End Date Sigrid Avilez MD [address] [place] [address] PCP - General Family Medicine 08/31/18 documented as of this encounter
--- OUTSIDE RECORDS SUMMARY | 2025-08-07 23:36 | XMS_ITS | Encounter Summary ---
Author Organization [employer] Address [address] [place] [address] 7t [place] [address] Care Team Providers Care Fire Watcher Name Role Phone Sigrid Avilez MD Primary Care Provider [phone] Reason for Visit * Reason Comments Med Refill Encounter Details Date Type Department Care Team (Late Contact Info) Description 03/02/2023 Refill [facility]S [address] [place] [address] Sigrid Avilez MD [address] [place] [address] Social History Tobacco Use Types Packs/Day Years [...] Description 11/07/2025 10:00 AM EDT Office Visit [facility] OPTOMETRY [address] [place], [place] [phone] Tarka, Trini, OD [address] [place] [address] documented as of this encounter Visit Diagnoses Not on filedocumented in this encounter Additional Health Concerns Assessment Noted Time PHQ-9 Depression Total Score: 0 10/15/19 23 9:23 AM EST documented as of this encounter Care Teams Fire Watcher Relationship Specialty Start Date End Date Sigrid Avilez MD [address] [place] [address] PCP - General Family Medicine 08/31/18 documented as of this encounter
--- OUTSIDE RECORDS SUMMARY | 2025-08-07 23:36 | XMS_ITS | Encounter Summary ---
Author Organization [employer] Address [address] [place] [address] [address]t [place] [address] Care Team Providers Care Deck Hand Name Role Phone Sigrid Avilez MD Primary Care Provider [phone] Encounter Details Date Type Department Care Team (Late Contact Info) Description 01/13/2023 Orders Only [facility] MED & PEDS [address] [place], [place] [phone] Esha Gilman LPN Social History Tobacco Use [...] Description 11/07/2025 10:00 AM EDT Office Visit [facility] OPTOMETRY [address] [place], [place] [phone] Trini Simth, OD [address] [place], [place] [phone] documented as of this encounter Visit Diagnoses Not on filedocumented in this encounter Additional Health Concerns Assessment Noted Time PHQ-9 Depression Total Score: 0 10/15/19 23 9:23 AM EST documented as of this encounter Care Teams Deck Hand Relationship Specialty Start Date End Date Sigrid Avilez MD [address] [place] [phone] PCP - General Family Medicine 08/31/18 documented as of this encounter
--- OUTSIDE RECORDS SUMMARY | 2025-08-07 23:36 | XMS_ITS | Encounter Summary ---
Author Organization [employer] Address [address] [facility] 7t [place] [address] Care Team Providers Care Junior Designer Name Role Phone Sigrid Avilez MD Primary Care Provider [phone] Reason for Visit * Reason Onset Date Comments Prior Authorization 11/16/2024 Encounter Details Date Type Department Care Team ([facility] st Contact Info) Description 11/16/2024 Telephone [facility] MED & PEDS [address] [place], [place] [phone] Sigrid Avilez MD [address] [place] [address] Prior Authorization Social History Tobacco Use Types [...] - 11/25/2024 3:31 PM EDT Tc from [facility] pharmacy requesting status of PA requested 11/11/2024 * Telephone Encounter - Eri Gallegos - 11/23/2024 11:03 AM EDT Tc from pt's daughter requesting status of prior message. * Telephone Encounter - Brigida Saravia - 11/16/2024 10:21 AM EDT Tc from Julissa at [facility] pharmacy requesting status on PA requested on 11/11/24 for fluticasone-salmeterol (AirDuo RespiClick) 232-14 MCG/ACT inhaler. Julissa stated it is urgent for pt to have medication. Disk Operator advise will send a message high priority. documented in this encounter Plan of Treatment Upcoming Encounters Date Type Department Care Team (Late st Contact Info) Description 11/07/2025 10:00 AM EDT Office Visit [facility] OPTOMETRY [address] [place] [address] TarTrini espitia, OD [address] [place] [address] documented as of this encounter Visit Diagnoses Not on filedocumented in this encounter Additional Health Concerns Assessment Noted Time PHQ-9 Depression Total Score: 0 09/28/19 25 9:18 AM EST documented as of this encounter Care Teams Junior Designer Relationship Specialty Start Date End Date Sigrid Avilez MD [address] [place] [address] PCP - General Family Medicine 08/31/18 documented as of this encounter
--- OUTSIDE RECORDS SUMMARY | 2025-08-07 23:36 | XMS_ITS | Encounter Summary ---
Author Organization [employer] Address [address] [place] [address] 7t [place] [address] Care Team Providers Care Hat Ironer Name Role Phone Sigrid Avilez MD Primary Care Provider [phone] Reason for Visit * Reason Comments Med Change Request Encounter Details Date Type Department Care Team ([facility] Contact Info) Description 01/20/2023 Refill [facility] CHC MED & PEDS 505 [place] [address] Germania Chris MD 505 [place] [address] Social History Tobacco Use Types Packs/Day Years [...] Date Type Department Care Team ([facility] Contact Info) Description 11/07/2025 10:00 AM EDT Office Visit [facility] OPTOMETRY [address] [place], [place] [phone] Tarnupur Trini, OD [address] [place] [address] documented as of this encounter Visit Diagnoses Not on filedocumented in this encounter Additional Health Concerns Assessment Noted Time PHQ-9 Depression Total Score: 0 10/15/19 23 9:23 AM EST documented as of this encounter Care Teams Hat Ironer Relationship Specialty Start Date End Date Sigrid Avilez MD [address] [place] [address] PCP - General Family Medicine 08/31/18 documented as of this encounter
--- OUTSIDE RECORDS SUMMARY | 2025-08-07 23:36 | XMS_ITS | Encounter Summary ---
Author Organization [employer] Address [address] [facility] 7t [place] [address] Care Team Providers Care Client Services Vice President Name Role Phone Sigrid Avilez MD Primary Care Provider Reason for Visit * Reason Comments Med Refill Encounter Details Date Type Department Care Team ([facility] st Contact Info) Description 03/29/2025 Refill [facility] CHC MED & PEDS 505 [place], [place] [phone] Sigrid Avilez MD 505 [place] [address] Social History Tobacco Use Types Packs/Day Years [...] Description 11/07/2025 10:00 AM EDT Office Visit [facility] OPTOMETRY 267 [place] [address] TarTrini espitia, OD [address] [place] [address] documented as of this encounter Visit Diagnoses Not on filedocumented in this encounter Additional Health Concerns Assessment Noted Time PHQ-9 Depression Total Score: 0 09/28/19 25 9:18 AM EST documented as of this encounter Care Teams Client Services Vice President Relationship Specialty Start Date End Date Sigrid Avilez MD 505 [place] [address] PCP - General Family Medicine 08/31/18 documented as of this encounter
--- OUTSIDE RECORDS SUMMARY | 2025-08-07 23:37 | XMS_ITS | Encounter Summary ---
Author Organization [employer] Address 75 [facility] 7t [place] [address] Care Team Providers Care Digital Content Marketing Manager Name Role Phone Sigrid Avilez MD Primary Care Provider [phone] Reason for Visit * Reason Onset Date Comments alternative medication 07/26/2025 Encounter Details Date Type Department Care Team (Late st Contact Info) Description 07/26/[address] [facility] MEDICINE [address] [place] [address] Sigrid Avilez MD 505 [place] [address] alternative medication Social History Tobacco Use Types Packs/Day Years [...] encounter Miscellaneous Notes * Telephone Encounter - Deb Miles - 07/26/2025 11:37 AM EST Tc from Melissa with [employer] requesting an alternative medication due to Insurance doesn't cover codeine 15mg tablet. To contact melissa at [phone] Avilez documented in this encounter Plan of Treatment Upcoming Encounters Date Type Department Care Team (Late st Contact Info) Description 11/07/2025 10:00 AM EDT Office [address] [facility] OPTOMETRY 267 [place] [address] Trini Smith, OD 267 [place] [address] documented as of this encounter Goals Goal [...] Plan Weekly blood pressure task No Sigrid Aivlez MD Patient has chronic kidney disease Care Plan Patient has chronic kidney disease No Sigrid Avilez MD Patient has chronic kidney disease Care Plan Patient has chronic kidney disease No Sigrid Avilez MD documented as of this encounter Visit Diagnoses [...] 07/26/2025 Patient has chronic kidney disease 07/26/2025 Assessment Noted Time PHQ-9 Depression Total Score: 0 09/28/19 9:18 AM EST documented as of this encounter Care Teams Digital Content Marketing Manager Relationship Specialty Start Date End Date Sigrid Avilez MD [address] [place] [address] PCP - General Family Medicine 08/31/18 documented as of this encounter
--- OUTSIDE RECORDS SUMMARY | 2025-08-07 23:37 | XMS_ITS | Encounter Summary ---
Author Organization [employer] Address [address] [facility] 7t [place] [address] Care Team Providers Care Leather Cartridge Belt Maker Name Role Phone Sigrid Avilez MD Primary Care Provider [phone] Reason for Visit * Reason Comments Med Refill Encounter Details Date Type Department Care Team ([facility] st Contact Info) Description 03/29/2025 Refill [facility] CHC MED & PEDS 505 [place], [place] [phone] Sigrid Avilez MD 505 [place] [address] Social History Tobacco Use Types Packs/Day Years [...] Description 11/07/2025 10:00 AM EDT Office Visit [facility] OPTOMETRY 267 [place] [address] TarTrini espitia, OD 267 [place] [address] documented as of this encounter Visit Diagnoses Not on filedocumented in this encounter Additional Health Concerns Assessment Noted Time PHQ-9 Depression Total Score: 0 09/28/19 25 9:18 AM EST documented as of this encounter Care Teams Leather Cartridge Belt Maker Relationship Specialty Start Date End Date Sigrid Avilez MD 505 [place] [address] PCP - General Family Medicine 08/31/18 documented as of this encounter
== END 2025-08-07 16:02 | disposition home or self-care (01) ==
LOC: HO.HPS 14:31
PROVIDERS: PCP Pediatrics; Visit Provider Nurse Practitioner Family
DX: J84.9 Interstitial pulmonary disease, unspecified (principal); R05.3 Chronic cough; Z87.891 Personal history of nicotine dependence; J45.909 Unspecified asthma, uncomplicated
CPT/HCPCS: 99214; G2211

== ENCOUNTER → 2025-08-07 14:31 | Outpatient (BNVA) | payer OTHER, SELFPAY | PROVIDERS: PCP Pediatrics; Visit Provider Nurse Practitioner Family | DX: J84.9 Interstitial pulmonary disease, unspecified (principal); J45.909 Unspecified asthma, uncomplicated; R05.3 Chronic cough; Z87.891 Personal history of nicotine dependence | CPT/HCPCS: 99212 ==

== ENCOUNTER 2025-08-29 09:29 | Outpatient (REF) | payer OTHER, SELFPAY ==
[2025-08-29 09:59] LABS: MANUAL DIFF FLAG NO
[2025-08-29 10:54] LABS: Hematocrit 43.0 % (42.0-52.0); Hemoglobin 14.0 g/dl (14.0-18.0); Imm Gran Abs Auto 0.04 X10*3/uL (0.00-0.03); Imm Gran Pct Auto 0.3 % (0.0-0.4); Lymphocytes Absolute Auto 1.6 X10*3/uL (1.2-4.9); Mean Corpuscular HGB Conc 32.6 g/dl (31.0-36.0); Mean Corpuscular Hemoglobin 28.7 pg (27.0-33.0); Mean Corpuscular Volume 88.1 fL (80.0-98.0); NRBC Abs Auto 0.000 X10*3/uL (0.0-0.012); NRBC Pct Auto 0.0 /100WBC (0.0-0.2); Platelet Count 295 X10*3/uL (160-400); Red Blood Count 4.88 X10*6/uL (4.60-5.80); White Blood Count 12.2 X10*3/uL (4.8-10.8)
[2025-08-29 11:51] LABS: Lipase 20 U/L (8-78)
--- OUTSIDE RECORDS SUMMARY | 2025-08-29 12:10 | XMS_ITS | Encounter Summary ---
Author Organization [employer] Address [address] [place] [address] 7t [place] [address] Care Team Providers Care Senior Asp Net Developer Name Role Phone Sigrid Avilez MD Primary Care Provider [phone] Encounter Details Date Type Department Care Team (Late Contact Info) Description 01/13/2023 Orders Only [facility] CHC MED & PEDS [address] [place], [place] [phone] Esha Gilman LPN Social History Tobacco Use [...] Description 11/07/2025 10:00 AM EDT Office Visit [facility] OPTOMETRY 267 [place], [place] [phone] Trini Smith, OD 267 [place], [place] [phone] documented as of this encounter Visit Diagnoses Not on filedocumented in this encounter Additional Health Concerns Assessment Noted Time PHQ-9 Depression Total Score: 0 10/15/19 23 9:23 AM EST documented as of this encounter Care Teams Senior Asp Net Developer Relationship Specialty Start Date End Date Sigrid Avilez MD [address] [place] [address] PCP - General Family Medicine 08/31/18 documented as of this encounter
--- OUTSIDE RECORDS SUMMARY | 2025-08-29 12:10 | XMS_ITS | Encounter Summary ---
Author Organization [employer] Address [address] [place] [address] 7t [place] [address] Care Team Providers Care Director Of It Operations Name Role Phone Sigrid Avilez MD Primary Care Provider [phone] Reason for Visit * Reason Comments Med Change Request Encounter Details Date Type Department Care Team (Late Contact Info) Description 11/18/2022 Refill C CHC MED & PEDS 505 [place], [place] [phone] Sigrid Avilez MD 505 [place] [address] Type 2 diabetes mellitus without complication, without long-term current use of insulin ([facility]) Social History Tobacco Use Types Packs/Day Years [...] Care Team ([facility] Contact Info) Description 11/07/2025 10:00 AM EDT Office Visit [facility] OPTOMETRY [address] [place] [address] Trini Smith, OD [address] [place] [address] documented as of this encounter Visit Diagnoses Diagnosis Type 2 diabetes mellitus without complication, without long-term current use of insulin (HCC) documented in this encounter Additional Health Concerns Assessment Noted Time PHQ-9 Depression Total Score: 0 10/15/19 23 9:23 AM EST documented as of this encounter Care Teams Director Of It Operations Relationship Specialty Start Date End Date Sigrid Avilez MD [address] [place] [address] PCP - General Family Medicine 08/31/18 documented as of this encounter
--- OUTSIDE RECORDS SUMMARY | 2025-08-29 12:10 | XMS_ITS | Encounter Summary ---
Author Organization [employer] Address [address] [place] [address] 7t [place] [address] Care Team Providers Care B2B Account Executive Name Role Phone Sigrid Avilez MD Primary Care Provider Reason for Visit * Reason Comments Med Change Request Encounter Details Date Type Department Care Team (Late Contact Info) Description 11/18/2022 Refill C CHC MED & PEDS 505 [place], [place] [phone] Sigrid Avilez MD 505 [place] [address] Type 2 diabetes mellitus without complication, without long-term current use of insulin ([facility]) Social History Tobacco Use Types [...] Upcoming Encounters Date Type Department Care Team ([facility] Contact Info) Description 11/07/2025 10:00 AM EDT Office Visit [facility] OPTOMETRY [address] [place] [address] Trini Smith, OD [address] [place] [address] documented as of this encounter Visit Diagnoses Diagnosis Type 2 diabetes mellitus without complication, without long-term current use of insulin (HCC) documented in this encounter Additional Health Concerns Assessment Noted Time PHQ-9 Depression Total Score: 0 10/15/19 23 9:23 AM EST documented as of this encounter Care Teams B2B Account Executive Relationship Specialty Start Date End Date Sigrid Avilez MD [address] [place] [address] PCP - General Family Medicine 08/31/18 documented as of this encounter
--- OUTSIDE RECORDS SUMMARY | 2025-08-29 12:10 | XMS_ITS | Encounter Summary ---
Author Organization [employer] Address [address] [place] [address] 7t [place] [address] Care Team Providers Care Printing Mechanist Name Role Phone Sigrid Avilez MD Primary Care Provider [phone] Reason for Visit * Reason Comments Med Change Request Encounter Details Date Type Department Care Team ([facility] Contact Info) Description 01/20/2023 Refill [facility] CHC MED & PEDS 505 [place] [address] Germania Chris MD 505 [place] [address] Social History Tobacco Use Types Packs/Day Years [...] Upcoming Encounters Date Type Department Care Team ([facility] Contact Info) Description 11/07/2025 10:00 AM EDT Office Visit [facility] OPTOMETRY [address] [place], [place] [phone] Tarnupur Trini, OD [address] [place] [address] documented as of this encounter Visit Diagnoses Not on filedocumented in this encounter Additional Health Concerns Assessment Noted Time PHQ-9 Depression Total Score: 0 10/15/19 23 9:23 AM EST documented as of this encounter Care Teams Printing Mechanist Relationship Specialty Start Date End Date Sigrid Avilez MD [address] [place] [address] PCP - General Family Medicine 08/31/18 documented as of this encounter
--- OUTSIDE RECORDS SUMMARY | 2025-08-29 12:10 | XMS_ITS | Encounter Summary ---
Author Organization [employer] Address [address] [place] [address] 7t [place] [address] Care Team Providers Care Industrial Services Worker Name Role Phone Sigrid Avilez MD Primary Care Provider [phone] Reason for Visit * Reason Comments Med Change Request Encounter Details Date Type Department Care Team (Late Contact Info) Description 01/20/2023 Refill C CHC MED & PEDS 505 [place], [place] [phone] Sigrid Avilez MD 505 [place] [address] Type 2 diabetes mellitus without complication, without long-term current use of insulin ([facility]) Social History Tobacco Use Types Packs/Day [...] Upcoming Encounters Date Type Department Care Team ([facility] Contact Info) Description 11/07/2025 10:00 AM EDT Office Visit [facility] OPTOMETRY [address] [place] [address] Trini Smith, OD [address] [place] [address] documented as of this encounter Visit Diagnoses Diagnosis Type 2 diabetes mellitus without complication, without long-term current use of insulin (HCC) documented in this encounter Additional Health Concerns Assessment Noted Time PHQ-9 Depression Total Score: 0 10/15/19 23 9:23 AM EST documented as of this encounter Care Teams Industrial Services Worker Relationship Specialty Start Date End Date Sigrid Avilez MD [address] [place] [address] PCP - General Family Medicine 08/31/18 documented as of this encounter
--- OUTSIDE RECORDS SUMMARY | 2025-08-29 12:11 | XMS_ITS | Encounter Summary ---
Author Organization [employer] Address [address] [place] [address] 7t [place] [address] Care Team Providers Care Bill Clerk Name Role Phone Sigrid Avilez MD Primary Care Provider [phone] Reason for Referral * Consultation (Routine) - Pending Review Specialty Diagnoses / Procedures Referred By Contac t Referred To Contact Pulmonary Disease Diagnoses ILD (interstitial lung disease) (CMS/HCC) (HCC) Supplemental oxygen dependent Sigrid Avilez MD 505 [place] [address] Phone: tel: fax: Referral ID Status Reason Start Date Expiration Date Visits Requested Visits Authorized [id number] Pending Review Specialty Services Required 08/29/2026 1 1 Scheduling Instructions With at [facility] for second opinion. Encounter Details Date Type Department Care Team (Late st Contact Info) Description 08/29/2025 Orders Only [facility] MEDICINE [address] [place] [address] Sigrid Avilez MD 505 [place], [place] [phone] ILD (interstitial lung disease) (CMS/HCC) (HCC) (Primary Dx); Supplemental oxygen dependent Social History Tobacco Use Types Packs/Day Years [...] Description 11/07/2025 10:00 AM EDT Office Visit [facility] OPTOMETRY [address] [place] [address] Trini Smith, OD 267 [place] [address] Scheduled Referrals Name Type Priority Associated Diagnoses Order Schedule Referral to Pulmonology Outpatient Referral Routine ILD (interstitial lung disease) (CMS/HCC) (HCC) Supplemental oxygen dependent Expected: 08/29/2025 (Approximate), Expires: 08/29/2026 documented as of this encounter Goals Goal [...] Plan Patient has chronic kidney disease No eDb Miles Patient has chronic kidney disease Care [...] has chronic kidney disease No Mario Juan Weekly blood pressure task Care Plan Weekly blood pressure task No Jahaira Peñaloza Weekly blood pressure task Care Plan Weekly blood pressure task No Jahaira Peñaloza Patient has chronic kidney disease Care Plan Patient has chronic kidney disease No Jahaira Peñaloza Patient has chronic kidney disease Care Plan Patient has chronic kidney disease No Jahaira Peñaloza Weekly blood pressure task Care Plan Weekly [...] Care Plan Weekly blood pressure task No Franklyn Juan Weekly blood pressure task Care Plan Weekly blood pressure task No Franklyn Juan Patient has chronic kidney disease Care Plan Patient has chronic kidney disease No Franklyn Juan Patient has chronic kidney disease Care Plan Patient has chronic kidney disease No Franklyn Juan Weekly blood pressure task Care Plan Weekly blood pressure task No Franklyn Juan Weekly blood pressure task Care Plan Weekly blood pressure task No Franklyn Juan Patient has chronic kidney disease Care Plan Patient has chronic kidney disease No Franklyn Juan Patient has chronic kidney disease Care Plan Patient has chronic kidney disease No Franklyn Juan Weekly blood pressure task Care Plan Weekly blood pressure task No Sigrid Avilez MD Weekly blood pressure task Care Plan Weekly blood pressure task No Sigrid Avilez MD Patient has chronic kidney disease Care Plan Patient has chronic kidney disease Sigrid Blake MD Patient has chronic kidney disease Care Plan Patient has chronic kidney disease Sigrid Blake MD documented as of this encounter Visit Diagnoses Diagnosis ILD (interstitial lung disease) (CMS/HCC) (HCC)- 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 Dependence on supplemental oxygen documented in this encounter Additional Health Concerns Active [...] 08/01/2025 Patient has chronic kidney disease 08/01/2025 Weekly blood pressure task 08/16/2025 Weekly blood pressure task 08/16/2025 Patient has chronic kidney disease 08/16/2025 Patient has chronic kidney disease 08/16/2025 Weekly blood pressure task 08/16/2025 Weekly blood pressure task 08/16/2025 Patient has chronic kidney disease 08/16/2025 Patient has chronic kidney disease 08/16/2025 Weekly blood pressure task 08/16/2025 Weekly blood pressure task 08/16/2025 Patient has chronic kidney disease 08/16/2025 Patient has chronic kidney disease 08/16/2025 Weekly blood pressure task 08/28/2025 Weekly blood pressure task 08/28/2025 Patient has chronic kidney disease 08/28/2025 Patient has chronic kidney disease 08/28/2025 Weekly blood pressure task 08/28/2025 Weekly blood pressure task 08/28/2025 Patient has chronic kidney disease 08/28/2025 Patient has chronic kidney disease 08/28/2025 Weekly blood pressure task 08/29/2025 Weekly blood pressure task 08/29/2025 Patient has chronic kidney disease 08/29/2025 Patient has chronic kidney disease 08/29/2025 Assessment Noted Time PHQ-9 Depression Total Score: 0 09/28/19 25 9:18 AM EST documented as of this encounter Care Teams Bill Clerk Relationship Specialty Start Date End Date Sigrid Avilez MD [address] [place] [address] PCP - General Family Medicine 08/31/18 documented as of this encounter
--- OUTSIDE RECORDS SUMMARY | 2025-08-29 12:11 | XMS_ITS | Encounter Summary ---
Author Organization [employer] Address [address] [facility] 7t [place] [address] Care Team Providers Care Reading Aide Name Role Phone Sigrid Avilez MD Primary Care Provider [phone] Encounter Details Date Type Department Care Team (Late Contact Info) Description 11/20/2022 Telephone [facility] 230 [place], [place] [phone] Sigrid Avilez MD [address] [facility] [address] [place], [place] [phone] Social History Tobacco Use Types Packs/Day Years [...] Upcoming Encounters Date Type Department Care Team ([facility] Contact Info) Description 11/07/2025 10:00 AM EDT Office Visit [facility] OPTOMETRY [address] [place] [address] Trini Smith, OD [address] [place] [address] documented as of this encounter Visit Diagnoses Not on filedocumented in this encounter Additional Health Concerns Assessment Noted Time PHQ-9 Depression Total Score: 0 10/15/19 23 9:23 AM EST documented as of this encounter Care Teams Reading Aide Relationship Specialty Start Date End Date Sigrid Avilez MD 505 [place] [address] PCP - General Family Medicine 08/31/18 documented as of this encounter
--- OUTSIDE RECORDS SUMMARY | 2025-08-29 12:11 | XMS_ITS | Encounter Summary ---
Author Organization [employer] Address [address] [facility] 7t [place] [address] Care Team Providers Care Early Childhood Services Coordinator Name Role Phone Sigrid Avilez MD Primary Care Provider Reason for Visit * Reason Onset Date Comments Referral 08/28/2025 Encounter Details Date Type Department Care Team (Late st Contact Info) Description 08/28/2025 Telephone [facility] MEDICINE [address] [place] [address] Sigrid Avilez MD [address] [facility] [place] [address] Referral Social History Tobacco Use Types Packs/Day Years [...] Telephone Encounter - Charisse Edmonds RN - 08/28/2025 11:36 AM EST Patient has scheduled appointment at [facility] on SCHEDULED 10/09/25 @ 8 AM. * Telephone Encounter - Franklny Juan - 08/28/2025 9:16 AM EST TC from pt requesting change location referral : Second opinion DATE: 09/06 TIME: 4pm Address: [address] [place] [address] [address] Visits: 2 Facility Name: [facility] pulmonary Type of Specialist: DX: Tobacco dependence syndrome Chronic cough Phone # : [phone] Fax #: [phone] documented in this encounter Plan of Treatment Upcoming Encounters Date Type Department Care Team (Late st Contact Info) Description 11/07/2025 10:00 AM EDT Office Visit [facility] OPTOMETRY [address] [place] [address] Trini Smith, OD 267 [place] [address] documented as of this encounter Goals Goal [...] Patient has chronic kidney disease No Sigrid Avliez MD Weekly blood pressure task Care Plan [...] has chronic kidney disease No Franklyn Juan documented as of this encounter Visit [...] 08/28/2025 Patient has chronic kidney disease 08/28/2025 Assessment Noted Time PHQ-9 Depression Total Score: 0 09/28/19 25 9:18 AM EST documented as of this encounter Care Teams Early Childhood Services Coordinator Relationship Specialty Start Date End Date Sigrid Avilez MD 505 [place] [address] PCP - General Family Medicine 08/31/18 documented as of this encounter
--- OUTSIDE RECORDS SUMMARY | 2025-08-29 12:11 | XMS_ITS | Encounter Summary ---
Author Organization [employer] Address [address] [facility] 7t [place] [address] Care Team Providers Care Cat Scanner Operator Name Role Phone Sigrid Avilez MD Primary Care Provider [phone] Reason for Visit * Reason Onset Date Comments alternative medication 07/26/2025 Encounter Details Date Type Department Care Team (Late st Contact Info) Description 07/26/2025 Telephone [facility] [address] [place] [address] Sigrid Avilez MD 505 [place] [address] alternative medication Social History Tobacco Use Types [...] codeine 15mg tablet. To contact melissa at [phone] Avilez documented in this encounter Plan of Treatment Upcoming Encounters Date Type Department Care Team (Late st Contact Info) Description 11/07/2025 10:00 AM EDT Office Visit [facility] OPTOMETRY [address] [place] [address] Trini Smith, OD [address] [place] [address] documented as of this encounter Goals Goal [...] documented as of this encounter Care Teams Cat Scanner Operator Relationship Specialty Start Date End Date Sigrid Avilez MD [address] [place] [address] PCP - General Family Medicine 08/31/18 documented as of this encounter
--- OUTSIDE RECORDS SUMMARY | 2025-08-29 12:11 | XMS_ITS | Encounter Summary ---
Author Organization [email or web address] Address [address] [facility] 7t [place] [address] Care Team Providers Care Broiler Supervisor Name Role Phone Sigrid Avilez MD Primary Care Provider [phone] Reason for Visit * Reason Comments Med Refill Encounter Details Date Type Department Care Team ([facility] st Contact Info) Description 03/29/2025 Refill [facility] CHC MED & PEDS 505 [place], [place] [phone] Sigrid Avilez MD 505 [place] [address] Social History Tobacco Use Types Packs/Day Years [...] Description 11/07/2025 10:00 AM EDT Office Visit [facility] OPTOMETRY 267 [place] [address] TarTrini espitia, OD [address] [place] [address] documented as of this encounter Visit Diagnoses Not on filedocumented in this encounter Additional Health Concerns Assessment Noted Time PHQ-9 Depression Total Score: 0 09/28/19 25 9:18 AM EST documented as of this encounter Care Teams Broiler Supervisor Relationship Specialty Start Date End Date Sigrid Avilez MD [address] [place] [address] PCP - General Family Medicine 08/31/18 documented as of this encounter
--- OUTSIDE RECORDS SUMMARY | 2025-08-29 12:11 | XMS_ITS | Clinical Summary ---
Author Organization [employer] Address [address] [facility] 7t [place] [address] Care Team Providers Care Social Sciences Chair Name Role Phone Sigrid Avilez MD Primary Care Provider Allergies Active Allergy Reactions Criticality Noted Date Comments Aspirin Unknown,Rash Low 04/16/2012 Simvastatin Diarrhea 06/23/2024 Medications Cyanocobalamin 1000 MCG capsule Take 1 capsule by mouth in the morning. 11/21/19 21 Active ergocalciferol (Vitamin D-2) 1.25 MG (10069 UT) capsule Take 1 capsule by mouth 1 (one) time per week. 11/28/19 22 Active omega-3 (Fish Oil) 1000 MG capsuleIndicatio ns:Newly diagnosed diabetes (HCC) Take 1 capsule orally [...] day. OTC Active Lancets (OneTouch Delica Plus [id number]) misc Check sugars twice a day 100 each 11 01/21/20 23 Active triamcinolone (Kenalog) 0.1 % creamIndications :Rash Apply topically if needed in the morning and at bedtime (pain and swelling). 30 g 01/31/20 23 Active Lancets (OneTouch Delica Plus [id number]) misc CHECK BLOOD SUGAR TWO TIMES A DAY 100 each 11 03/17/20 23 Active albuterol 108 (90 Base) MCG/ACT inhalerIndicatio ns:Chronic cough INHALE 2 PUFFS EVERY 6 HOURS IF NEEDED FOR WHEEZING. 18 g 2 09/15/19 24 Active dulaglutide (Trulicity) 0.75 MG/0.5ML solution pen-injector INJECT POR VIA SUBCUTANEA 0.75 MG UNDER THE SKIN 1 TIME PER WEEK. 0.5 mL 11 01/06/20 24 Active Lancets (OneTouch Delica Plus [id number]) miscIndications: Diabetes mellitus without complication ([facility]) USE TO CHECK BLOOD SUGAR ONCE DAILY 100 each 01/29/20 24 Active losartan (Cozaar) 25 MG tablet Take 1 tablet (25 mg) by mouth Once per day. 90 tablet 3 09/28/19 25 Active albuterol (Ventolin HFA) 108 (90 Base) MCG/ACT inhaler Inhale 2 puffs every 6 (six) hours if needed for wheezing. 18 g 11 09/28/19 25 026 Active fluticasone-salm eterol (AirDuo RespiClick) 232-14 MCG/ACT inhalerIndicatio ns:Tobacco dependence syndrome Inhale 1 puff 2 times daily. Rinse mouth with water after use to reduce aftertaste and incidence of candidiasis. Do not swallow. 1 each 09/28/19 25 026 Active predniSONE (Deltasone) 20 MG tablet Take 2 tabs orally daily for 4 days, then 1 tab daily for 6 days 14 tablet 11/05/19 25 Active levoFLOXacin (Levaquin) 750 MG tablet Take 1 tab orally daily 10 tablet 11/05/19 25 Active Misc. Devices (Pulse Oximeter) miscIndications: ILD (interstitial lung disease) (CMS/HCC) (HCC) Use to check pulse ox prn 1 each 11/05/19 25 Active fluticasone-salm eterol (Advair) 230-21 MCG/ACT inhaler Inhale 2 puffs in the morning and at bedtime. Rinse mouth with water after use to reduce aftertaste and incidence of candidiasis. Do not swallow. 12 g 11/26/19 25 026 Active rosuvastatin (Crestor) 40 MG tabletIndication s:Newly diagnosed diabetes (HCC) TAKE ONE TABLET BY MOUTH EVERY DAY AT BEDTIME 90 tablet 2 12/22/19 25 Active pantoprazole (ProtoNix) 20 MG EC tabletIndication s:Newly diagnosed diabetes (HCC) Take 1 tab orally daily 90 tablet 3 01/05/20 25 Active azelastine (Astelin) 0.1 % nasal spray Administer 1 spray into each nostril 2 times daily. Use in each nostril as directed 30 mL 12 01/05/20 25 026 Active levocetirizine (Xyzal) 5 MG tablet Use 1 tab orally daily 30 tablet 01/05/20 25 Active Lancets (OneTouch Delica Plus [id number]) misc CHECK BLOOD SUGAR TWO TIMES A DAY 100 each 01/27/20 25 Active amLODIPine (Norvasc) 10 MG tablet TAKE ONE TABLET BY MOUTH EVERY DAY 90 tablet 1 03/17/20 25 Active OneTouch Ultra Test test stripIndications :Diabetes mellitus without complication (HCC) USE TO CHECK BLOOD SUGAR TWO TIMES A DAY 100 strip 04/24/20 25 Active Dulaglutide (Trulicity) 0.75 MG/0.5ML solution auto-injector Inject 0.75 mg under the skin 1 (one) time per week. 2 mL 5 07/11/20 25 Active clopidogrel (Plavix) 75 MG tablet TOME 1 TABLETA POR V A ORAL TODOS LOS D FOR 90 DAYS 06/04/20 25 Active Trelegy Ellipta 200-62.5-25 MCG/ACT aerosol powder Inhale 1 puff in the morning. 07/11/20 25 Active guaiFENesin (Mucinex) 600 MG 12 hr tablet Take 2 tablets (1,200 mg) by mouth 2 times daily. Do not crush, chew, or split. 60 tablet 07/26/20 25 026 Active albuterol (2.5 MG/3ML) 0.083% nebulizer solutionIndicati ons:ILD (interstitial lung disease) (CMS/HCC) (HCC) Take 3 mL (2.5 mg) by nebulization every 6 (six) hours if needed for wheezing. 75 mL 07/26/20 25 026 Active codeine 15 MG tabletIndication s:Chronic cough,ILD (interstitial lung disease) (CMS/[facility]) ([facility]) Take 1 tablet (15 mg) by mouth every 6 (six) hours if needed for moderate pain for up to 5 days. 20 tablet 07/26/20 25 025 acetaminophen-co deine (Tylenol w/ Codeine #3) 300-30 MG tabletIndication s:Chronic cough,ILD (interstitial lung disease) (CMS/[facility]) ([facility]) Take 1 tablet by mouth every 6 (six) hours if needed for severe pain for up to 5 days. 20 tablet 07/26/20 25 025 Active Problems Problem Noted Date Diagnosed Date [...] in 4 weeks ILD (interstitial lung disease) ([facility]) 2022 Arthritis of hip 02/02/2018 Idiopathic osteoarthritis 02/02/2018 Chronic superficial gastritis 12/22/2017 Peripheral vascular disease 09/23/2016 Elevated fasting blood sugar 06/13/2014 Asthma 04/16/2012 Depressive disorder 04/16/2012 Gastroesophageal reflux disease 04/16/2012 Hyperlipidemia 04/16/2012 Tobacco dependence syndrome 04/16/2012 Resolved Problems Problem Noted Date Diagnosed Date Resolved Date Diabetes mellitus without complication 10/11/2019 06/23/2024 Newly diagnosed diabetes 11/27/2016 Encounters Date Type Department Care Team Description 08/29/2025 Orders Only [address] [address] Sigrid Avilez MD ILD (interstitial lung disease) ([facility]) ([facility]) (Primary Dx); Supplemental oxygen dependent 08/29/2025 Orders Only GENERIC EXTERNAL DATA DEPARTMENT Provider, Generic External Data 08/28/[address] [address] Sigrid Avilez MD Medication Question 08/28/[address] [address] Sigrid Avilez MD Referral 08/16/2025 Orders Only [address] [address] Sigrid Avilez MD Chronic cough (Primary Dx); Persistent hoarseness 08/16/2025 Telephone [facility] [address] [place] [address] SOFT TISSUE ORDER 08/01/[address] [address] Sigrid Avilez MD ER Follow-up 07/31/2025 Telephone [facility] [address] [place] [address] Sigrid Avilez MD 07/26/2025 9:00 AM EST Office Visit [facility] [address] [place] [address] Sigrid Avilez MD Chronic cough (Primary Dx); ILD (interstitial lung disease) ([facility]) (HCC); Encounter for immunization; Persistent hoarseness; Type 2 diabetes mellitus with hyperglycemia, without long-term current use of insulin ([facility]) 07/26/2025 Orders Only [facility] [address] [place] [address] Sigrid Avilez MD Chronic cough (Primary Dx); ILD (interstitial lung disease) (CMS/HCC) (HCC) 07/26/[address] [address] Sigrid Avilez MD alternative medication 07/26/2025 Travel 07/25/2025 Telephone [facility] [address] [place] [address] Sigrid Avilez MD Chart Prep 07/18/2025 Orders Only [facility] External Provider, [facility] 07/10/2025 Refill [facility] [address] [place] [address] Claudia Peñaloza MD from Last 3 Months Immunizations Immunization [...] Description 11/07/2025 10:00 AM EDT Office Visit [facility] [address] [place] [address] Trini Smith, OD [address] [place] [address] Health Maintenance Due Date Last Done Comments CT Colonography 1955 Colonoscopy 1955 FIT 1955 Sigmoidoscopy 1955 Hepatitis C Screening 1973 RSV Patients and Patients Aged 60 years or older (1 - Risk 50-74 years 1-dose series) 2005 FOBT 08/14/2024 08/14/2023 Lipid Panel 03/28/2025 03/28/2024, 12/0 05/2022, 11/27/2021 COVID-19 Vaccine ( season) 2025 [...] Care Plan Weekly blood pressure task No Devon, Halle, MANAGER WILLOW Weekly blood pressure task Care Plan Weekly blood pressure task No Devon, Halle, MANAGER WILLOW Patient has chronic kidney disease Care Plan Patient has chronic kidney disease No Devon, Halle, MANAGER WILLOW Patient has chronic kidney disease Care Plan Patient has chronic kidney disease No Devon, Halle, MANAGER WILLOW Weekly blood pressure task Care Plan Weekly blood pressure task No Devon, Halle, MANAGER WILLOW Weekly blood pressure task Care Plan Weekly blood pressure task No Devon, Halle, MANAGER WILLOW Patient has chronic kidney disease Care Plan Patient has chronic kidney disease No Devon, Halle, MANAGER WILLOW Patient has chronic kidney disease Care Plan Patient has chronic kidney disease No Devon, Halle, MANAGER WILLOW Weekly blood pressure task Care Plan Weekly [...] Care Plan Weekly blood pressure task No Drake Johnkadysathish Patient has chronic kidney disease Care Plan Patient has chronic kidney disease No Frnaklyn Juan Patient has chronic kidney disease Care Plan Patient has chronic kidney disease No Franklyn Juan Weekly blood pressure task Care Plan Weekly blood pressure task No Franklyn Juan Weekly blood pressure task Care Plan Weekly blood pressure task No Drake Johnreuben Patient has chronic kidney disease Care Plan [...] Patient has chronic kidney disease No Sigrid Avielz MD Procedures Procedure Name Priority Date/Time Associated Diagnosis Comments LIPASE Routine 08/29/2025 9:57 AM EST CBC WITH AUTO DIFFERENTIAL Routine 08/29/2025 9:57 AM EST POCT GLYCATED HEMOGLOBIN, TOTAL Routine 07/26/2025 9:35 AM EST Chronic cough POCT GLUCOSE (CPT-66119) Routine 07/26/2025 9:35 AM EST Chronic cough CT CHEST WO CONTRAST Routine 07/18/2025 4:30 PM EST ALBUMIN, RANDOM URINE W/CREATININE Routine 09/28/2024 10:16 AM EST Encounter for immunization Diabetes mellitus without complication (CMS/HCC) LIPID PANEL, STANDARD Routine 03/28/2024 9:15 AM EDT Diabetes mellitus without complication (CMS/HCC) LAB COLOGUARD COLON CANCER SCREEN Routine 08/14/2023 9:00 AM EST Colon cancer screening from Last 3 Months or Most Recently Relevant to Health Maintenance Results * (ABNORMAL) CBC auto differential (08/29/2025 9:57 AM EST) White Blood Count 12.2(H) 4.8 - 10.8 X10*3/uL [facility] Red Blood Count 4.88 4.60 - 5.80 X10*6/uL [facility] Hemoglobin 14.0 14.0 - 18.0 g/dl [facility] Hematocrit 43.0 42.0 - 52.0 % [facility] Mean Corpuscular Volume 88.1 80.0 - 98.0 fL [facility] Mean Corpuscular Hemoglobin 28.7 27.0 - 33.0 pg [facility] Mean Corpuscular HGB Conc 32.6 31.0 - 36.0 g/dl [facility] Red Cell Distribution Width 13.2 11.0 - 16.0 % [facility] Platelet Count 295 160 - 400 X10*3/uL [facility] Mean Platelet Volume 11.0 9.4 - 12.4 fL [facility] Neutrophils Percent Auto 72.7 45 - 73 % [facility] Imm Gran Pct Auto 0.3 0.0 - 0.4 % [facility] Lymphocytes Percent Auto 13.1(L) 20 - 40 % [facility] Monocytes Percent Auto 9.4 2 - 11 % [facility] Eosinophils Percent Auto 4.3(H) 0 - 4 % [facility] Basophils Percent Auto 0.2 0 - 2 % [facility] NRBC Pct Auto 0.0 0.0 - 0.2 /100WBC [facility] Neutrophils Absolute Auto 8.9(H) 2.0 - 8.3 x10*3/uL [facility] Imm Gran Abs Auto 0.04(H) 0.00 - 0.03 X10*3/uL [facility] Lymphocytes Absolute Auto 1.6 1.2 - 4.9 X10*3/uL [facility] Monocytes Absolute Auto 1.2 0.1 - 1.2 X10*3/uL [facility] Eosinophils Absolute Auto 0.5(H) 0.0 - 0.4 X10*3/uL [facility] Basophils Absolute Auto 0.0 0.0 - 0.2 X10*3/uL [facility] NRBC Abs Auto 0.000 0.0 - 0.012 X10*3/uL [facility] 08/29/2025 9:57 AM EST 08/29/2025 9:57 AM EST us Generic External Data Provider LAB BLOOD ORDERAB LES Final Result Performing Organization Address City/[facility]/ZIP Co de Phone Number [facility] [address] [place] [phone] * Lipase (08/29/2025 9:57 AM EST) Pathologist [facility] Lipase 20 8 - 78 U/L [facility] 08/29/2025 9:57 AM EST 08/29/2025 9:57 AM EST Generic External Data Provider LAB BLOOD ORDERAB LES Final Result Performing Organization Address [facility] Co de Phone Number [facility] [address] [place] [phone] * (ABNORMAL) POCT Hgb A1c (07/26/2025 9:35 AM EST) Hemoglobin A1C 7.3(A) 4.0 - 5.7 % Blood 07/26/2025 9:35 AM EST us Sigrid Avilez MD POINT [...] PM EST Narrative 07/19/2025 8:50 AM EST [address] [address] [address] Scan Report Signed Patient: Benny Vásquez MR#: [id number] : 1955 Acct:[id number] Age/Sex: 69 / M ADM Date: 07/18/25 Loc: HO.CT Attending Dr: Lo Quinteros NP Ordering Physician: Lo Quinteros NP Date of Service: 07/18/25 Procedure(s): CT chest wo IV con Accession Number(s): [id number] cc: Sigrid Avilez MD; Lo Quinteros NP Report Number: [id number]: Total DLP = 99.00 mGy-cm Reason for [...] 07/19/25 0847 DD/ 1630 TD/TT: 07/18/25 1709 Sec Accountant: Procedure Note Donotuseinterpreter, Image - 07/19/[address] [address] [address] Scan Report Signed Patient: Adan Vásquez#: [id number] : 5Acct:[id number] Age/Sex: 69 / MADM Date: 07/18/25 Loc: HO.CT Attending Dr: Lo Quinteros NP Ordering Physician: Lo Quinteros NP Date of Service: 07/18/25 Procedure(s): CT chest wo IV con Accession Number(s): [id number] cc: Sigrid Avilez MD; Lo Quinteros NP Report Number: [id number]: Total DLP = 99.00 mGy-cm Reason for [...] 07/19/25 0847 DD/ 1630 TD/TT: 07/18/25 1709 Sec Accountant: [facility] External Provider IMG CT PROCEDURES Edited Result - Final * (ABNORMAL) Albumin, Random Urine W/Creatinine (09/28/2024 10:16 AM EST) Creatinine, Urine 177.21 mg/dL [facility] Microalbumin Urine 54.0 mg/L [facility] Microalbum Creatinine Ratio Ur 30.4(H) <30 ug/mg cr [facility] Comment:Albumin/Creatinine R atio Reference Ranges: Normal: < 30 ug/mg creatinine Microalbuminuria: 30 - 300 ug/mg creatinineClinical Albuminuria: > 300 ug/mg creatinine Urine (Urine, Random) 09/28/2024 10:16 AM EST 09/28/2024 2:31 PM EST Sigrid Avilez MD LAB URINE ORDERABLES Final Re sult [facility] [address] [place] [phone] * Lipid Panel, Standard (03/28/2024 9:15 AM EDT) Triglycerides 84 <150 mg/dL [facility] Comment:Desirable Triglyceri de: less than 150 mg/dLBorderline High Triglyceride 150-199 mg/dLHigh Triglyceride: 200-499 mg/dLVery High Triglyceride: greater than or equal to 5OO mg/dL Cholesterol 133 <200 mg/dL [facility] Comment:Desirable Cholestero l: less than 200 mg/dLBorderline High Cholesterol: 200-239 mg/dLHigh Cholesterol: greater than 239 mg/dL LDL Cholesterol Calculated 61 <100 mg/dL [facility] Comment:Desirable LDL: less than 100 mg/dLNear Optimal/Above Optimal LDL: 110- 129 mg/dLBorderline High LDL: 130-159 mg/dLHigh LDL: 160-189 mg/dLVery High LDL: greater than or equal to 190 mg/dL HDL Cholesterol 56 >40 mg/dL [facility] Comment:Desirable HDL: great er than 40 mg/dL Note: This HDL assay may give artificially low results in patients with liver disease. Blood Venous blood specimen / Unknown 03/28/2024 9:15 AM EDT 03/28/2024 2:13 PM EDT us Sigrid Avilez MD LAB BLOOD ORDERABLES Final Re sult [facility] [address] [place] [phone] * Cologuard?? colon cancer screening (08/14/2023 9:00 AM EST) Cologuard Result Negative Negative 08/21/20 5:50 PM EST [facility] (CLIA #:[id number]) Comment: NEGATIVE TEST RESULT. A negative Cologuard [...] (Bony Hatfield al, N Engl J Med 2014;370(14):7976-6604) The normal value (reference range) for this assay is negative. COLOGUARD RE-SCREENING RECOMMENDATION: Periodic colorectal cancer screening is an important part of preventive healthcare for asymptomatic individuals at average risk for colorectal cancer. Following a negative Cologuard result, the [place] Cancer Society and U.S. Multi-Society Task Force screening guidelines recommend a Cologuard re-screening interval of 3 years. References: [place] Cancer Society Guideline for Colorectal Cancer Screening: https://www.cancer.org/cancer/ronir-omgdsk-czwhhi/bnvojtiei-djsywysbo-pbvqsrp/ac s-rec ommendations.html.; Hernandez DK, Antonino CR, Jessica FosterK, Colorectal Cancer Screening: Recommendations for Physicians and Patients from the U.S. Multi-Society Task Force on Colorectal Cancer Screening , Am J Gastroenterology 2017; 112:6799-9478. TEST DESCRIPTION: Composite algorithmic analysis of stool [...] (Bony Hatfield al, N Engl J Med 2014;370(14):5594-1398.) Cologuard may produce a false negative or false positive result (no colorectal cancer or precancerous polyp present at colonoscopy follow up). A negative Cologuard test result does not guarantee the absence of CRC or advanced adenoma (pre-cancer). The current Cologuard screening interval is every 3 years. ([employer] Cancer Society and U.S. Multi-Society Task Force). Cologuard performance data in a 10,000 patient pivotal study using colonoscopy as the reference method can be accessed at the following location: www.[employer]/results. Additional description of the Cologuard test process, warnings and precautions can be found at www.[employer].com. Stool specimen (specimen) 08/14/2023 9:00 AM EST 08/17/2023 1:58 PM EST us Sigrid Avilez MD LAB MOLECULAR DIAGNOSTICS ORD ERABLES Final Result [facility] (CLIA #:[id number]) [address] [place] [address], from Last 3 Months or Most Recently [...] 08/29/2025 Patient has chronic kidney disease 08/29/2025 Insurance [facility] RETIREMENT OPTIONS (O D-SNP) [facility] [place] [address] [place] [address] Care Teams Social Sciences Chair Relationship Specialty Start Date End Date Sigrid Avilez MD [address] [place] [address] [place] [address] PCP - General Family Medicine 08/31/18
--- OUTSIDE RECORDS SUMMARY | 2025-08-29 12:11 | XMS_ITS | Encounter Summary ---
Author Organization [employer] Address [address] [facility] 7t [place] [address] Care Team Providers Care Marketing Performance Analyst Name Role Phone Sigrid Avilez MD Primary Care Provider [phone] Reason for Visit * Reason Comments Med Refill Encounter Details Date Type Department Care Team ([facility] st Contact Info) Description 03/29/2025 Refill [facility] [address] [place], [place] [phone] Sigrid Avilez MD [address] [place] [address] Social History Tobacco Use Types Packs/Day Years [...] Description 11/07/2025 10:00 AM EDT Office Visit [facility] [address] [place] [address] TarTrini espitia, OD [address] [place] [address] documented as of this encounter Visit Diagnoses Not on filedocumented in this encounter Additional Health Concerns Assessment Noted Time PHQ-9 Depression Total Score: 0 09/28/19 25 9:18 AM EST documented as of this encounter Care Teams Marketing Performance Analyst Relationship Specialty Start Date End Date Sigrid Avilez MD [address] [place] [address] PCP - General Family Medicine 08/31/18 documented as of this encounter
--- OUTSIDE RECORDS SUMMARY | 2025-08-29 12:11 | XMS_ITS | Encounter Summary ---
Author Organization [employer] Address [address] [place] [address] [address] [place] [address] Care Team Providers Care Deburrer Strip Name Role Phone Sigrid Avilez MD Primary Care Provider [phone] Reason for Visit * Reason Comments Med Refill Encounter Details Date Type Department Care Team (Late Contact Info) Description 03/02/2023 Refill [facility] [address] [place] [address] Sigrid Avilez MD [address] [place] [address] Social History Tobacco Use Types Packs/Day Years [...] Description 11/07/2025 10:00 AM EDT Office Visit [facility] [address] [place], [place] [phone] Tarka, Trini, OD [address] [place] [address] documented as of this encounter Visit Diagnoses Not on filedocumented in this encounter Additional Health Concerns Assessment Noted Time PHQ-9 Depression Total Score: 0 10/15/19 23 9:23 AM EST documented as of this encounter Care Teams Deburrer Strip Relationship Specialty Start Date End Date Sigrid Avilez MD [address] [place] [address] PCP - General Family Medicine 08/31/18 documented as of this encounter
--- OUTSIDE RECORDS SUMMARY | 2025-08-29 12:11 | XMS_ITS | Encounter Summary ---
Author Organization [employer] Address [address] [facility] 7t [place] [address] Care Team Providers Care Special Warfare Boat Operator Name Role Phone Sigrid Avilez MD Primary Care Provider [phone] Reason for Visit * Reason Onset Date Comments Prior Authorization 11/16/2024 Encounter Details Date Type Department Care Team ([facility] st Contact Info) Description 11/16/2024 Telephone [facility] [address] [place], [place] [phone] Sigrid Avilez MD [address] [place] [address] Prior Authorization Social History Tobacco Use Types [...] - 11/25/2024 3:31 PM EDT Tc from [facility] requesting status of PA requested 11/11/2024 * Telephone Encounter - Eri Gallegos - 11/23/2024 11:03 AM EDT Tc from pt's daughter requesting status of prior message. * Telephone Encounter - Brigida Saravia - 11/16/2024 10:21 AM EDT Tc from Julissa at [facility] requesting status on PA requested on 11/11/24 for fluticasone-salmeterol (AirDuo RespiClick) 232-14 MCG/ACT inhaler. Julissa stated it is urgent for pt to have medication. Seam Finisher advise will send a message high priority. documented in this encounter Plan of Treatment Upcoming Encounters Date Type Department Care Team (Late st Contact Info) Description 11/07/2025 10:00 AM EDT Office Visit [facility] [address] [place] [address] TarTrini espitia, OD [address] [place] [address] documented as of this encounter Visit Diagnoses Not on filedocumented in this encounter Additional Health Concerns Assessment Noted Time PHQ-9 Depression Total Score: 0 09/28/19 25 9:18 AM EST documented as of this encounter Care Teams Special Warfare Boat Operator Relationship Specialty Start Date End Date Sigrid Avilez MD [address] [place] [address] PCP - General Family Medicine 08/31/18 documented as of this encounter
--- OUTSIDE RECORDS SUMMARY | 2025-08-29 12:11 | XMS_ITS | Encounter Summary ---
Author Organization [employer] Address [address] [facility] [address] [place] [address] Care Team Providers Care Marking Machine Operator Name Role Phone Sigrid Avilez MD Primary Care Provider [phone] Encounter Details Date Type Department Care Team (Late st Contact Info) Description 12/09/2024 Orders Only [facility] [address] [place], [place] [phone] Provider, MD Ernst Social History Tobacco Use [...] Description 11/07/2025 10:00 AM EDT Office Visit [facility] [address] [place], [place] [phone] TarkaTrini, OD [address] [place] [address] documented as of this encounter Procedures Procedure Name Priority Date/Time Associated Diagnosis Comments CT CHEST WO CONTRAST Routine 12/20/2024 8:25 PM EDT documented in this encounter Results * CT Chest w/o Contrast (12/20/2024 8:25 PM EDT) Anatomical Region Laterality Modality Body, Chest Computed Tomogra phy 12/20/2024 8:25 PM EDT Narrative 12/20/2024 8:27 PM EDT [address] [address] [address] Scan Report Signed Patient: Benny Vásquez MR#: [id number] : 1955 Acct:[id number] Age/Sex: 69 / M ADM Date: 12/16/24 Loc: HO.CT Attending Dr: Lo Quinteros [employer] Ordering Physician: Lo Quinteros NP Date of Service: 12/16/24 Procedure(s): CT chest wo IV con Accession Number(s): [id number] cc: Sigrid Avilez MD; Lo Quinteros NP Report Number: [id number]: Total DLP = 91.00 mGy-cm CLINICAL HISTORY: [...] in OV> 12/20/242025 DD/ 24 TD/TT: 12/20/242024 Juvenile Justice Officer: Procedure Note Donotuseinterpreter, Image - 12/20/[address] [place] [address] [address] Scan Report Signed Patient: Adan Vásquez#: [id number] : 5Acct:[id number] Age/Sex: 69 / MADM Date: 12/16/24 Loc: HO.CT Attending Dr: Lo Quinteros [employer] Ordering Physician: Lo Quinteros NP Date of Service: 12/16/24 Procedure(s): CT chest wo IV con Accession Number(s): [id number] cc: Sigrid Avilez MD; Lo Quinteros NP Report Number: [id number]: Total DLP = 91.00 mGy-cm CLINICAL HISTORY: [...] in OV> 12/20/242025 DD/ 24 TD/TT: 12/20/242024 Juvenile Justice Officer: [facility] External Provider IMG CT PROCEDURES Final Result documented in this encounter Visit Diagnoses Not on filedocumented in this encounter Additional Health Concerns Assessment Noted Time PHQ-9 Depression Total Score: 0 09/28/19 9:18 AM EST documented as of this encounter Care Teams Marking Machine Operator Relationship Specialty Start Date End Date Sigrid Avilez MD [address] [place] [phone] PCP - General Family Medicine 08/31/18 documented as of this encounter
--- OUTSIDE RECORDS SUMMARY | 2025-08-29 12:11 | XMS_ITS | Encounter Summary ---
Author Organization [employer] Address [address] [facility] [address] [place] [address] Care Team Providers Care Traffic Attendant Name Role Phone Sigrid Avilez MD Primary Care Provider [phone] Encounter Details Date Type Department Care Team (Late st Contact Info) Description 03/25/2024 Orders Only [facility] [address] [place], [place] [phone] Provider, MD Ernst Social History Tobacco Use [...] 11/07/2025 10:00 AM EDT Office Visit [facility] [address] [place] [address] TarkaTrini, OD [address] [place] [address] documented as of this encounter Procedures Procedure [...] documented as of this encounter Care Teams Traffic Attendant Relationship Specialty Start Date End Date Sigrid Avilez MD [address] [place] [phone] PCP - General Family Medicine 08/31/18 documented as of this encounter
--- OUTSIDE RECORDS SUMMARY | 2025-08-29 12:11 | XMS_ITS | Encounter Summary ---
Author Organization [employer] Address [address] [facility] [address] [place] [address] Care Team Providers Care Bus Aide Name Role Phone Sigrid Avilez MD Primary Care Provider [phone] Reason for Visit * Reason Onset Date Comments Medication Question 08/28/2025 Encounter Details Date Type Department Care Team (Late st Contact Info) Description 08/28/2025 Telephone [facility] [address] [place] [address] Sigrid Avilez MD [address] [place] [address] Medication Question Social History Tobacco Use Types [...] encounter Miscellaneous Notes * Telephone Encounter - France Wang RN - 08/29/2025 11:41 AM EST Called pt regarding message, spoke to daughter. Daughter states pt wants to go to the [facility] and needs a referral. Pt last seen at [facility] on 08/07 and his O2 was continued. Pt did have a test for SPO2 without O2 during the night and was sent back to pulmonology as requested. Daughter also states needs script for O2 from PCP. Last seen by PCP on 07/26. Notes from the Pulmonology ap pointment of 08/07 are in the chart for review. Advised will task to PCP. Daughter understands and agrees with plan. * Telephone Encounter - Franklyn Juan - 08/28/2025 9:28 AM EST Tc from pt daughter hema requesting call back regarding [facility] pulmonary about script oxygen . Please contact pt daughter at [phone] documented in this encounter Plan of Treatment Upcoming Encounters Date Type Department Care Team (Late st Contact Info) Description 11/07/2025 10:00 AM EDT Office Visit [facility] [address] [place] [phone] Trini Smith OD [address] [place] [address] documented as of this encounter Goals Goal [...] Patient has chronic kidney disease No Anna uJan [place] Weekly blood pressure task Care Plan [...] has chronic kidney disease No Devon, Halle, BATCH TRUCKER Weekly blood pressure task Care Plan Weekly blood pressure task No Halle Osorio BATCH TRUCKER Weekly blood pressure task Care Plan Weekly [...] documented as of this encounter Care Teams Bus Aide Relationship Specialty Start Date End Date Sigrid Avilez MD [address] [place] [address] PCP - General Family Medicine 08/31/18 documented as of this encounter
--- OUTSIDE RECORDS SUMMARY | 2025-08-29 12:11 | XMS_ITS | Encounter Summary ---
Author Organization [employer] Address [address] [facility] [address] [place] [address] Care Team Providers Care Lead Developer Name Role Phone Sigrid Avilez MD Primary Care Provider [phone] Encounter Details Date Type Department Care Team (Late st Contact Info) Description 08/29/2025 Orders Only [facility] EXTERNAL DATA DEPARTMENT Provider, Generic External Data Social History Tobacco Use Types Packs/Day Years [...] Description 11/07/2025 10:00 AM EDT Office Visit [facility] [address] [place] [address] Trini Smith, OD [address] [place] [address] documented as of this encounter Goals Goal [...] Weekly blood pressure task No Devon, Halle, DIRECTOR STARS Weekly blood pressure task Care Plan Weekly blood pressure task No Devon Halle, DIRECTOR STARS Patient has chronic kidney disease Care Plan Patient has chronic kidney disease No Devon Halle, DIRECTOR STARS Patient has chronic kidney disease Care Plan Patient has chronic kidney disease No Devon, Halle, DIRECTOR STARS Weekly blood pressure task Care Plan Weekly blood pressure task No Devon Halle, DIRECTOR STARS Weekly blood pressure task Care Plan Weekly blood pressure task No Devon Halle, DIRECTOR STARS Patient has chronic kidney disease Care Plan Patient has chronic kidney disease No Devon Halle, DIRECTOR STARS Patient has chronic kidney disease Care Plan Patient has chronic kidney disease No Devon Halle, DIRECTOR STARS Weekly blood pressure task Care Plan Weekly [...] Plan Patient has chronic kidney disease No Bharati Peñalozaluz Weekly blood pressure task Care Plan Weekly [...] Plan Weekly blood pressure task No Drake Raysathish Patient has chronic kidney disease Care Plan Patient has chronic kidney disease No Franklyn Juan Patient has chronic kidney disease Care Plan Patient has chronic kidney disease No Franklyn Juan Weekly blood pressure task Care Plan Weekly blood pressure task No Franklyn Juan Weekly blood pressure task Care Plan Weekly blood pressure task No Drake Raysathish Patient has chronic kidney disease Care Plan [...] Avilez MD documented as of this encounter Procedures Procedure Name Priority Date/Time Associated Diagnosis Comments CBC WITH AUTO DIFFERENTIAL Routine 08/29/2025 9:57 AM EST LIPASE Routine 08/29/2025 9:57 AM EST documented in this encounter Results * Lipase (08/29/2025 9:57 AM EST) Lipase 20 8 - 78 U/L [facility] 08/29/2025 9:57 AM EST 08/29/2025 9:57 AM EST us Generic External Data Provider LAB BLOOD ORDERAB LES Final Result [facility] [address] [place] [phone] * (ABNORMAL) CBC auto differential (08/29/2025 9:57 AM EST) White Blood Count 12.2(H) 4.8 - 10.8 X10*3/uL [facility] Red Blood Count 4.88 4.60 - 5.80 X10*6/uL [facility] Hemoglobin 14.0 14.0 - 18.0 g/dl [facility] Hematocrit 43.0 42.0 - 52.0 % [facility] Mean Corpuscular Volume 88.1 80.0 - 98.0 fL [facility] Mean Corpuscular Hemoglobin 28.7 27.0 - 33.0 pg [facility] Mean Corpuscular HGB Conc 32.6 31.0 - 36.0 g/dl [facility] Red Cell Distribution Width 13.2 11.0 - 16.0 % [facility] Platelet Count 295 160 - 400 X10*3/uL [facility] Mean Platelet Volume 11.0 9.4 - 12.4 fL [facility] Neutrophils Percent Auto 72.7 45 - 73 % [facility] Imm Gran Pct Auto 0.3 0.0 - 0.4 % [facility] Lymphocytes Percent Auto 13.1(L) 20 - 40 % [facility] Monocytes Percent Auto 9.4 2 - 11 % [facility] Eosinophils Percent Auto 4.3(H) 0 - 4 % [facility] Basophils Percent Auto 0.2 0 - 2 % [facility] NRBC Pct Auto 0.0 0.0 - 0.2 /100WBC [facility] Neutrophils Absolute Auto 8.9(H) 2.0 - 8.3 x10*3/uL [facility] Imm Gran Abs Auto 0.04(H) 0.00 - 0.03 X10*3/uL [facility] Lymphocytes Absolute Auto 1.6 1.2 - 4.9 X10*3/uL [facility] Monocytes Absolute Auto 1.2 0.1 - 1.2 X10*3/uL [facility] Eosinophils Absolute Auto 0.5(H) 0.0 - 0.4 X10*3/uL [facility] Basophils Absolute Auto 0.0 0.0 - 0.2 X10*3/uL [facility] NRBC Abs Auto 0.000 0.0 - 0.012 X10*3/uL [facility] 08/29/2025 9:57 AM EST 08/29/2025 9:57 AM EST us Generic External Data Provider LAB BLOOD ORDERAB LES Final Result Performing Organization Address City/State/[facility] Co de Phone Number [facility] [address] [place] [phone] [phone] documented in this encounter Visit Diagnoses Not [...] documented as of this encounter Care Teams Lead Developer Relationship Specialty Start Date End Date Sigrid Avilez MD [address] [place] [phone] PCP - General Family Medicine 08/31/18 documented as of this encounter
[2025-08-29 12:19] LABS: Folate 9.0 ng/mL (> or = 4.0); Vitamin B12 335 pg/mL (200-900)
== END 2025-08-29 09:30 ==
LOC: HO.LAB 09:29
PROVIDERS: Nurse Practitioner Family; PCP Pediatrics; Visit Provider Nurse Practitioner Family
DX: R19.7 Diarrhea, unspecified (principal); E55.9 Vitamin D deficiency, unspecified; R10.9 Unspecified abdominal pain; J84.9 Interstitial pulmonary disease, unspecified; Z01.84 Encounter for antibody response examination
CPT/HCPCS: 36415; 82085; 82306; 82607; 82746; 83690; 85025; 86235